=== PATIENT | male | born 1950 | race Caucasian/White ===

== ENCOUNTER 2017-02-12 13:16 | Inpatient (IN) | payer OTHER, MEDICARE ==
[2017-02-12] VITALS (9 sets, daily range): BP systolic 102–165; BP diastolic 50–77; PULSE 84–106; RESP 16–20; TEMP 97.2–98.1; O2SAT 95–100
[~2017-02-12] VITALS: Ht 182.9 cm; Wt 179.6 kg
--- NOTE | 2017-02-12 14:19 | PD ---
HPI Chief Complaint: Cardiac Complaint Time Seen by Provider: 13:46 Travel History International Travel<30 days: No Contact w/Intl Traveler<30days: No Traveled to known affect area: No History of Present Illness HPI 66-year-old male presents with shortness of breath and tiredness that is been progressive over the past couple of days. He went to Dr. kaiser for referral for a possible ablation and he was sent immediately here. Patient states he has history of hemorrhoids and has had very mild bleeding but denies any significant blood loss. He states that Dr. 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 He states he feels worse when he moves around or when he lies down. He denies other modifying factors. He denies other specific complaints. Duration is couple of days. PFSH Past Medical History Hx Anticoagulant Therapy: Yes (ELOQUIS) Cardiovascular Problems: Yes (AFIB/FLUTTER; HTN) Diabetes: Yes Respiratory: Yes (COPD) Social History Tobacco Use: No Allergies-Medications (Allergen,Severity, Reaction): Coded Allergies: No Known Allergies (Unverified , 02/12/17) Review of Systems Except as stated in HPI: all other systems reviewed are Neg Physical Exam Narrative GENERAL: Well-nourished, well-developed patient. pale SKIN: Warm and dry. HEAD: Normocephalic and atraumatic. EYES: No injection or drainage. ENT: No nasal drainage noted. NECK: Supple, trachea midline. CARDIOVASCULAR: irregular rate and rhythm RESPIRATORY: Breath sounds equal bilaterally at apices. No accessory muscle use. GASTROINTESTINAL: Abdomen soft, non-tender, nondistended. EXTREMITIES: pitting edema to bilateral lower extremities to knees. RECTAL EXAM: Performed with packer sausage and wiener and after permission. No large external hemorrhoid or fissure, stool is brown, non-bloody. NEUROLOGICAL: Awake and alert. moves all extremities and sensory grossly within normal limits. Normal speech. Data Data Last Documented VS Vital Signs Date Time Temp Pulse Resp B/P (MAP) Pulse Ox O2 Delivery O2 Flow Rate FiO2 02/12/17 14:14 93 Nasal Cannula 2.00 02/12/17 13:17 98.1 106 16 147/77 (100) Orders Orders Magnesium (Mg) (02/12/17 13:46) Phosphorus (Po4) (02/12/17 13:46) Complete Blood Count With Diff (02/12/17 13:46) Comprehensive Metabolic Panel (02/12/17 13:46) Ckmb (Isoenzyme) Profile (02/12/17 13:46) Troponin I (02/12/17 13:46) Urinalysis - C+S If Indicated (02/12/17 13:46) Act Partial Throm Time (Ptt) (02/12/17 13:46) Prothrombin Time / Inr (Pt) (02/12/17 13:46) B-Type Natriuretic Peptide (02/12/17 13:46) Chest, Single Ap (02/12/17 ) Electrocardiogram (02/12/17 ) Iv Access Insert/Monitor (02/12/17 13:46) Ecg Monitoring (02/12/17 13:46) Oximetry (02/12/17 13:46) Type And Screen (02/12/17 13:46) Red Blood Cells (Rbc) (02/12/17 14:33) Blood Product Administration (02/12/17 14:33) CKMB (02/12/17 13:58) CKMB% (02/12/17 13:58) Pantoprazole Inj (Protonix Inj) (02/12/17 15:15) ^ Medication Reconciliation (02/12/17 15:35) Admit Order (Ed Use Only) (02/12/17 15:40) Labs Laboratory Tests Test 02/12/17 13:58 02/12/17 14:40 White Blood Count 11.0 TH/MM3 Red Blood Count 2.74 MIL/MM3 Hemoglobin 6.3 GM/DL Hematocrit 21.2 % Mean Corpuscular Volume 77.4 FL Mean Corpuscular Hemoglobin 23.1 PG Mean Corpuscular Hemoglobin Concent 29.9 % Red Cell Distribution Width 17.9 % Platelet Count 201 TH/MM3 Mean Platelet Volume 8.4 FL Neutrophils (%) (Auto) 67.8 % Lymphocytes (%) (Auto) 15.7 % Monocytes (%) (Auto) 7.1 % Eosinophils (%) (Auto) 8.6 % Basophils (%) (Auto) 0.8 % Neutrophils # (Auto) 7.5 TH/MM3 Lymphocytes # (Auto) 1.7 TH/MM3 Monocytes # (Auto) 0.8 TH/MM3 Eosinophils # (Auto) 0.9 TH/MM3 Basophils # (Auto) 0.1 TH/MM3 CBC Comment DIFF FINAL Differential Comment Prothrombin Time 11.2 SEC Prothromb Time International Ratio 1.1 RATIO Activated Partial Thromboplast Time 30.5 SEC Blood Urea Nitrogen 23 MG/DL Creatinine 1.52 MG/DL Random Glucose 200 MG/DL Total Protein 7.3 GM/DL Albumin 3.4 GM/DL Calcium Level 8.6 MG/DL Phosphorus Level 3.6 MG/DL Magnesium Level 1.7 MG/DL Alkaline Phosphatase 63 U/L Aspartate Amino Transf (AST/SGOT) 17 U/L Alanine Aminotransferase (ALT/SGPT) 27 U/L Total Bilirubin 0.5 MG/DL Sodium Level 132 MEQ/L Potassium Level 4.0 MEQ/L Chloride Level 96 MEQ/L Carbon Dioxide Level 27.6 MEQ/L Anion Gap 8 MEQ/L Estimat Glomerular Filtration Rate 46 ML/MIN Total Creatine Kinase 255 U/L Creatine Kinase MB 1.8 NG/ML Troponin I LESS THAN 0.02 NG/ML B-Type Natriuretic Peptide 119 PG/ML Urine Color LIGHT-YELLOW Urine Turbidity CLEAR Urine pH 6.5 Urine Specific [place] 1.012 Urine Protein NEG mg/dL Urine Glucose (UA) NEG mg/dL Urine Ketones NEG mg/dL Urine Occult Blood NEG Urine Nitrite NEG Urine Bilirubin NEG Urine Urobilinogen 2.0 MG/DL Urine Leukocyte Esterase NEG Urine Squamous Epithelial Cells <1 /hpf Microscopic Urinalysis Comment CULT NOT INDICATED MDM Medical Decision Making Medical Screen Exam Complete: Yes Emergency Medical Condition: Yes Medical Record Reviewed: Yes (pmh confirmed) Interpretation(s) CBC & BMP Diagram 02/12/17 13:58 Total Protein 7.3, Albumin 3.4, Calcium Level 8.6, Phosphorus Level 3.6, Magnesium Level 1.7, Alkaline Phosphatase 63, Aspartate Amino Transf (AST/SGOT) 17, Alanine Aminotransferase (ALT/SGPT) 27, Total Bilirubin 0.5 Last 24 hours Impressions Chest X-Ray 02/12/17 0000 Signed Impressions: Service Date/Time: Friday, February 12, 2017 14:25 - CONCLUSION: No acute disease. Isael Blake MD Differential Diagnosis anemia, renal failure, chf, afib with rvr..... Narrative Course will check labs, cxr and monitor Lab shows critical anemia, 2 units of blood ordered for transfusion, patient is on Eliquis, guaiac is only faintly positive and no active rectal bleeding on examination, no indication for kcentra currently. Patient updated and agrees to transfusion and admission, given Protonix bolus Patient with only mild tachycardia, Cardizem will be held and patient will be given blood Critical Care Narrative Aggregate critical care time was 31 minutes. Time to perform other separately billable procedures was not included in the critical care time. My time did not include minutes spent treating any other patients simultaneously or on activities that did not directly contribute to the patient's treatment. The services I provided to this patient were to treat and/or prevent clinically significant deterioration that could result in: Hypotension, shock I provided critical care services requiring my management, as noted below: Chart data review, documentation time, medication orders and management, vital sign assessments/reviewing monitor data, ordering and reviewing lab tests, ordering and interpreting/reviewing x-rays and diagnostic studies, care of the patient and discussion of the patient with the admitting physicians. HemaPrompt Point of Care Internal Pos. & Neg. Controls: Passed Fecal Specimen Occult Blood: Positive (only faint) Physician Communication Physician Communication dr lindo agrees to admit Diagnosis Primary Impression: Anemia Qualified Codes: D64.9 - Anemia, unspecified Additional Impressions: Renal insufficiency Rectal bleed Atrial fibrillation with RVR Admitting Information Admitting Physician Requests: Admit Oksana Cunningham MD Feb 12, 2017 14:19
[2017-02-12 14:28] LABS: AUTOMATED NEUTROPHIL # 7.5 TH/MM3 (1.8-7.7); BASOPHIL # 0.1 TH/MM3 (0-0.2); BASOPHIL % 0.8 % (0.0-2.0); EOSINOPHIL # 0.9 TH/MM3 (0-0.4); EOSINOPHIL % 8.6 % (0.0-4.0); LYMPH % 15.7 % (9.0-44.0); LYMPHOCYTE # 1.7 TH/MM3 (1.0-4.8); MEAN CELL VOLUME 77.4 FL (80.0-100.0); MEAN CORPUSCULAR HEMOGLOBIN 23.1 PG (27.0-34.0); MONO % 7.1 % (0.0-8.0); NEUT % 67.8 % (16.0-70.0); PLATELET COUNT 201 TH/MM3 (150-450); RED BLOOD COUNT 2.74 MIL/MM3 (4.50-5.90); RED CELL DISTRIBUTION WIDTH 17.9 % (11.6-17.2)
[2017-02-12 14:31] LABS: HEMO FLAGS DIFF FINAL; MEAN CORPUSCULAR HGB CONC 29.9 % (32.0-36.0)
[2017-02-12 14:33] LABS: HEMATOCRIT 21.2 % (39.0-51.0)
[2017-02-12 14:39] LABS: APTT (PATIENT) 30.5 SEC (24.3-30.1); INTERNATIONAL NORMALIZED RATIO 1.1 RATIO; PROTHROMBIN TIME - PATIENT 11.2 SEC (9.8-11.6)
[2017-02-12 14:55] LABS: ALT (GPT) 27 U/L (12-78); ANION GAP 8 MEQ/L (5-15); AST (GOT) 17 U/L (15-37); BICARBONATE 27.6 MEQ/L (21.0-32.0); BLOOD UREA NITROGEN 23 MG/DL (7-18); CHLORIDE 96 MEQ/L (98-107); GLOMERULAR FILTRATION RATE 46 ML/MIN (>89); MAGNESIUM 1.7 MG/DL (1.5-2.5); SODIUM (NA) 132 MEQ/L (136-145)
[2017-02-12 14:58] LABS: ALKALINE PHOSPHATASE 63 U/L (45-117); CREATINE KINASE 255 U/L (39-308); TOTAL BILIRUBIN ADULT 0.5 MG/DL (0.2-1.0)
--- NOTE | 2017-02-12 15:10 | RADRPT ---
EXAM DATE/TIME: 02/12/2017 14:25 [facility] COMPARISON: No previous studies available for comparison. INDICATIONS : short of breath. MEDICAL HISTORY : A-fib SURGICAL HISTORY : None. ENCOUNTER: Initial ACUITY: 1 day PAIN SCORE: 0/10 LOCATION: Bilateral chest FINDINGS: A single view of the chest demonstrates the lungs to be symmetrically aerated without evidence of mas s, infiltrate or effusion. The cardiomediastinal contours are unremarkable. Osseous structures are intact. CONCLUSION: No acute disease. Isael Blake MD on February 12, 2017 at 15:08 Board Certified Radiologist. This report was verified electronically.
[2017-02-12 15:11] LABS: CKMB 1.8 NG/ML (0.5-3.6)
[2017-02-12] MEDS ORDERED: PANTOPRAZOLE SODIUM 40 MG VIAL IV PUSH ONE (15:15)
[2017-02-12 15:39] LABS: BLOOD, URINE NEG (NEG); COMMENT (UR) CULT NOT INDICATED; CULTURE IF INDICATED CULT NOT INDICATED; GLUCOSE,URINE NEG (NEG); KETONE, URINE NEG (NEG); NITRITE,URINE NEG (NEG); PH, URINE 6.5 (5.0-8.5); SQUAMOUS EPITHELIAL CELL URINE <1 /hpf (0-5); URINE COLOR LIGHT-YELLOW (YELLW/STRAW)
[2017-02-12] MEDS ORDERED: LACTULOSE SYRUP 20 GM/30 ML CUP PO PRN (15:45)
[2017-02-12] MEDS ORDERED: BISACODYL 10 MG SUPP RECTAL PRN (15:45)
[2017-02-12] MEDS ORDERED: SODIUM CHLORIDE 0.9% FLUSH 10 ML FLUSH IV FLUSH PRN (15:45)
[2017-02-12] MEDS ORDERED: TEMAZEPAM 15 MG CAP PO PRN (15:45)
[2017-02-12] MEDS ORDERED: SENNOSIDES 8.6 MG TAB PO PRN (15:45)
[2017-02-12] MEDS ORDERED: ONDANSETRON HCL 4 MG/2 ML VIAL IVP PRN (15:45)
[2017-02-12] MEDS ORDERED: MAGNESIUM HYDROXIDE SUSP 30 ML CUP PO PRN (15:45)
[2017-02-12] MEDS ORDERED: NALOXONE HCL 0.4 MG/ML AMP IV PUSH PRN (15:45)
[2017-02-12] MEDS: SODIUM CHLOR 0.9% 1000 ML INJ 1,000 ML IV SCH (15:58)
--- NOTE | 2017-02-12 16:40 | PD.CONS ---
HPI History of Present Illness This is a 66 year old male with hx hemorrhoids, AF on eliquis who presented to the ER after being sent to ER by Dr Whitt during consult for an ablation. He was found to be anemic with hgb 6.3 on admission. Denies jasbir rectal bleeding but did see scant blood on toilet paper the other day after BM. Denies black tarry stool, abd pain, n/v, hematuria. He thinks he may have been told he's anemic b/c he has been getting iron shots from "one of his doctors". 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 Denies chest pain, palpitations. Never colonoscopy or upper endoscopy. He takes eliquis, had this morning. Pts aids in providing hx. Pt limited historian. (Tena Valenzuela) PFSH Past Medical History A fib a flutter ?ESTUARDO HTN DM emphysema Past Surgical History vein stripping (Tena Valenzuela) Coded Allergies: No Known Allergies (Unverified , 02/12/17) Family History heart dz lung dz Social History no etoh quit smoking 1.5 years ago, smoked 45 years medical marijuana, occasionally (Tena Valenzuela) Review of Systems Constitutional: DENIES: Fever Eyes: DENIES: Blurred vision Ears, nose, mouth, throat: DENIES: Hearing loss Respiratory: DENIES: Hemoptysis Cardiovascular: DENIES: Chest pain, Palpitations Gastrointestinal: DENIES: Abdominal pain, Black stools, Bloody stools, Constipation, Diarrhea, Nausea, Vomiting, Hematemesis Genitourinary: DENIES: Hematuria Musculoskeletal: DENIES: Joint Swelling Integumentary: DENIES: Pruritus Neurologic: DENIES: Headache Psychiatric: DENIES: Confusion (Tena Valenzuela) GI Exam Vitals I&O Vital Signs Date Time Temp Pulse Resp B/P (MAP) Pulse Ox O2 Delivery O2 Flow Rate FiO2 02/12/17 15:59 98 20 102/69 (80) 100 Nasal Cannula 2.00 02/12/17 14:14 93 Nasal Cannula 2.00 02/12/17 13:17 98.1 106 16 147/77 (100) 95 Imaging Last Impressions Chest X-Ray 02/12/17 0000 Signed Impressions: Service Date/Time: WednesFebruary 12, 2017 14:25 - CONCLUSION: No acute disease. Isael Blake MD Laboratory Test 02/12/17 13:58 02/12/17 14:40 White Blood Count 11.0 TH/MM3 Red Blood Count 2.74 MIL/MM3 Hemoglobin 6.3 GM/DL Hematocrit 21.2 % Mean Corpuscular Volume 77.4 FL Mean Corpuscular Hemoglobin 23.1 PG Mean Corpuscular Hemoglobin Concent 29.9 % Red Cell Distribution Width 17.9 % Platelet Count 201 TH/MM3 Mean Platelet Volume 8.4 FL Neutrophils (%) (Auto) 67.8 % Lymphocytes (%) (Auto) 15.7 % Monocytes (%) (Auto) 7.1 % Eosinophils (%) (Auto) 8.6 % Basophils (%) (Auto) 0.8 % Neutrophils # (Auto) 7.5 TH/MM3 Lymphocytes # (Auto) 1.7 TH/MM3 Monocytes # (Auto) 0.8 TH/MM3 Eosinophils # (Auto) 0.9 TH/MM3 Basophils # (Auto) 0.1 TH/MM3 CBC Comment DIFF FINAL Differential Comment Prothrombin Time 11.2 SEC Prothromb Time International Ratio 1.1 RATIO Activated Partial Thromboplast Time 30.5 SEC Blood Urea Nitrogen 23 MG/DL Creatinine 1.52 MG/DL Random Glucose 200 MG/DL Total Protein 7.3 GM/DL Albumin 3.4 GM/DL Calcium Level 8.6 MG/DL Phosphorus Level 3.6 MG/DL Magnesium Level 1.7 MG/DL Alkaline Phosphatase 63 U/L Aspartate Amino Transf (AST/SGOT) 17 U/L Alanine Aminotransferase (ALT/SGPT) 27 U/L Total Bilirubin 0.5 MG/DL Sodium Level 132 MEQ/L Potassium Level 4.0 MEQ/L Chloride Level 96 MEQ/L Carbon Dioxide Level 27.6 MEQ/L Anion Gap 8 MEQ/L Estimat Glomerular Filtration Rate 46 ML/MIN Total Creatine Kinase 255 U/L Creatine Kinase MB 1.8 NG/ML Troponin I LESS THAN 0.02 NG/ML B-Type Natriuretic Peptide 119 PG/ML Urine Color LIGHT-YELLOW Urine Turbidity CLEAR Urine pH 6.5 Urine Specific [place] 1.012 Urine Protein NEG mg/dL Urine Glucose (UA) NEG mg/dL Urine Ketones NEG mg/dL Urine Occult Blood NEG Urine Nitrite NEG Urine Bilirubin NEG Urine Urobilinogen 2.0 MG/DL Urine Leukocyte Esterase NEG Urine Squamous Epithelial Cells <1 /hpf Microscopic Urinalysis Comment CULT NOT INDICATED Physical Examination HEENT: PERRL; normocephalic; atraumatic; no jaundice. CHEST: diminished CARDIAC: irr HR ABDOMEN: Soft, obese, nontender; bowel sounds are present in all four quadrants. EXTREMITIES: No clubbing, cyanosis,+ BLE edema > RLE SKIN: pale; no rash; no jaundice. REFUSE AND RECYCLING WORKER: No focal deficits; alert and oriented times three. (Tena Valenzuela) Assessment and Plan Plan ASSESSMENT - anemia - hgb 6.3 on admission. pt admits scant blood on toilet tissue the other day but no other blood in stool, no black tarry stool, no hx GIB. never had EGD or colonoscopy. seems to have hx anemia, sees press operator apprentice but cannot recall who, gets iron shots. stool "faintly" guiac positive. had eliquis today PLAN - EGD/colonoscopy with cardiac clearance - monitor HH - transfuse as needed - continue PPI - supportive care - further recs as case unfolds This pt seen by myself and Dr Luz and this note is written on his behalf (Tena Valenzuela) Physician Comments Seen and examined with LIDIA, no active bleeding reported. Needs transfusion. Egd /colonoscopy once cleared by cardiology. Significant risk for anesthesia due to patients large size. Discussed with pt. and at the bedside. Thankyou (Dwight Luz MD) Tena Valenzuela Feb 12, 2017 16:40 Dwight Luz MD Feb 12, 2017 17:23
[2017-02-12] MEDS: SODIUM CHLORIDE 0.9% FLUSH 10 ML FLUSH IV FLUSH SCH (20:15)
[2017-02-12] MEDS: DOCUSATE SODIUM 50 MG/SENNA 8.6 MG TAB PO SCH (21:00)
--- NOTE | 2017-02-12 21:57 | HHI.HP ---
[facility] Chas Ceja MD Admission Diagnosis anemia, afib with rvr Diagnoses: Chief Complaint: Generalized weakness Travel History International Travel<30 Days: No Contact w/Intl Traveler <30 Da: No Traveled to Known Affected Are: No History of Present Illness This is a very pleasant 66 year old male with hx hemorrhoids, AFib on eliquis, history of iron deficiency anemia, hypertension, diabetes, emphysema, morbidly obese, who presented to the ER after being sent to ER by Dr Whitt during consult for an ablation. He was found to be anemic with hgb 6.3 on admission. Denies jasbir rectal bleeding but did see scant blood on toilet paper the other day after BM. Denies black tarry stool, abd pain, n/v, hematuria. He thinks he may have been told he's anemic b/c he has been getting iron shots from "one of his doctors". 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 Denies chest pain, palpitations. Never colonoscopy or upper endoscopy. He takes eliquis, had this morning. Patient says he felt very weak and his short of breath however denies any chest pain, lightheadedness, no nausea or vomiting. Denies having palpitations. No hematuria. No other complaints at this time. Review of Systems Except as stated in HPI: all other systems reviewed are Neg Past Family Social History Past Medical History A fib a flutter ?ESTUARDO HTN DM emphysema Past Surgical History vein stripping Allergies: Coded Allergies: No Known Allergies (Unverified , 02/12/17) Family History Heart disease - father Mother COPD she was a smoker Social History Denies etohuse Quit smoking 1.5 years ago, smoked for 45 years 2 PPD Medical marijuana, occasionally Physical Exam Vital Signs Vital Signs Date Time Temp Pulse Resp B/P (MAP) Pulse Ox O2 Delivery O2 Flow Rate FiO2 02/12/17 18:35 Nasal Cannula 3.00 02/12/17 18:30 98.0 84 20 130/69 (89) 96 02/12/17 18:01 02/12/17 15:59 98 20 102/69 (80) 100 Nasal Cannula 2.00 02/12/17 14:14 93 Nasal Cannula 2.00 02/12/17 13:17 98.1 106 16 147/77 (100) 95 Physical Exam GENERAL: This is a well-nourished, well-developed patient, in no apparent distress. SKIN: No rashes, ecchymoses or lesions. Cool and dry. HEAD: Atraumatic. Normocephalic. No temporal or scalp tenderness. EYES: Pupils equal round and reactive. Extraocular motions intact. No scleral icterus. No injection or drainage. ENT: Nose without bleeding, purulent drainage or septal hematoma. Throat without erythema, tonsillar hypertrophy or exudate. Uvula midline. Airway patent. NECK: Trachea midline. No JVD or lymphadenopathy. Supple, nontender, no meningeal signs. CARDIOVASCULAR: Regular rate and rhythm without murmurs, gallops, or rubs. RESPIRATORY: Clear to auscultation. Breath sounds equal bilaterally. No wheezes , rales, or rhonchi. GASTROINTESTINAL: Abdomen soft, non-tender, nondistended. No hepato-splenomegaly , or palpable masses. No guarding. MUSCULOSKELETAL: Extremities without clubbing, cyanosis, or edema. No joint tenderness, effusion, or edema noted. No calf tenderness. Negative Homans sign bilaterally. NEUROLOGICAL: Awake and alert. Cranial nerves II through XII intact. Motor and sensory grossly within normal limits. Five out of 5 muscle strength in all muscle groups. Normal speech. Laboratory Laboratory Tests Test 02/12/17 13:58 02/12/17 14:40 White Blood Count 11.0 Red Blood Count 2.74 Hemoglobin 6.3 Hematocrit 21.2 Mean Corpuscular Volume 77.4 Mean Corpuscular Hemoglobin 23.1 Mean Corpuscular Hemoglobin Concent 29.9 Red Cell Distribution Width 17.9 Platelet Count 201 Mean Platelet Volume 8.4 Neutrophils (%) (Auto) 67.8 Lymphocytes (%) (Auto) 15.7 Monocytes (%) (Auto) 7.1 Eosinophils (%) (Auto) 8.6 Basophils (%) (Auto) 0.8 Neutrophils # (Auto) 7.5 Lymphocytes # (Auto) 1.7 Monocytes # (Auto) 0.8 Eosinophils # (Auto) 0.9 Basophils # (Auto) 0.1 CBC Comment DIFF FINAL Differential Comment Prothrombin Time 11.2 Prothromb Time International Ratio 1.1 Activated Partial Thromboplast Time 30.5 Blood Urea Nitrogen 23 Creatinine 1.52 Random Glucose 200 Total Protein 7.3 Albumin 3.4 Calcium Level 8.6 Phosphorus Level 3.6 Magnesium Level 1.7 Alkaline Phosphatase 63 Aspartate Amino Transf (AST/SGOT) 17 Alanine Aminotransferase (ALT/SGPT) 27 Total Bilirubin 0.5 Sodium Level 132 Potassium Level 4.0 Chloride Level 96 Carbon Dioxide Level 27.6 Anion Gap 8 Estimat Glomerular Filtration Rate 46 Total Creatine Kinase 255 Creatine Kinase MB 1.8 Troponin I LESS THAN 0.02 B-Type Natriuretic Peptide 119 Urine Color LIGHT-YELLOW Urine Turbidity CLEAR Urine pH 6.5 Urine Specific [place] 1.012 Urine Protein NEG Urine Glucose (UA) NEG Urine Ketones NEG Urine Occult Blood NEG Urine Nitrite NEG Urine Bilirubin NEG Urine Urobilinogen 2.0 Urine Leukocyte Esterase NEG Urine Squamous Epithelial Cells <1 Microscopic Urinalysis Comment CULT NOT INDICATED Result Diagram: 02/12/17 1358 02/12/17 1358 Imaging Last Impressions Chest X-Ray 02/12/17 0000 Signed Impressions: Service Date/Time: Sunday, February 12, 2017 14:25 - CONCLUSION: No acute disease. Isael Blake MD [place] VTE Risk Assessment Caprini VTE Risk Assessment: Mod/High Risk (score >= 2) VTE Pharm Contraindication: Active bleeding Caprini Risk Assessment Model Point Value = 1 Point Value = 2 Point Value = 3 Point Value = 5 Age 41-60 Minor surgery BMI > 25 kg/m2 Swollen legs Varicose veins or History of unexplained or recurrent spontaneous Oral contraceptives or hormone replacement Sepsis (< 1 month) Serious lung disease, including pneumonia (< 1 month) Abnormal pulmonary function Acute myocardial infarction Congestive heart failure (< 1 month) History of inflammatory bowel disease Medical patient at bed rest Age 61-74 Arthroscopic surgery Major open surgery (> 45 min) Laparoscopic surgery (> 45 min) Malignancy Confined to bed (> 72 hours) Immobilizing plaster cast Central venous access Age >= 75 History of VTE Family history of VTE Factor V Leiden Prothrombin [id number] Lupus anticoagulant Anticardiolipin antibodies Elevated serum homocysteine Heparin-induced thrombocytopenia Other congenital or acquired thrombophilia Stroke (< 1 month) Elective arthroplasty Hip, pelvis, or leg fracture Acute spinal cord injury (< 1 month) Prophylaxis Regimen Total Risk Factor Score Risk Level Prophylaxis Regimen 0-1 Low Early ambulation 2 Moderate Order ONE of the following: *Sequential Compression Device (SCD) *Heparin 5000 units SQ BID 3-4 Higher Order ONE of the following medications: *Heparin 5000 units SQ TID *Enoxaparin/Lovenox 40 mg SQ daily (WT < 150 kg, CrCl > 30 mL/min) *Enoxaparin/Lovenox 30 mg SQ daily (WT < 150 kg, CrCl > 10-29 mL/min) *Enoxaparin/Lovenox 30 mg SQ BID (WT < 150 kg, CrCl > 30 mL/min) AND/OR *Sequential Compression Device (SCD) 5 or more Highest Order ONE of the following medications: *Heparin 5000 units SQ TID (Preferred with Epidurals) *Enoxaparin/Lovenox 40 mg SQ daily (WT < 150 kg, CrCl > 30 mL/min) *Enoxaparin/Lovenox 30 mg SQ daily (WT < 150 kg, CrCl > 10-29 mL/min) *Enoxaparin/Lovenox 30 mg SQ BID (WT < 150 kg, CrCl > 30 mL/min) AND *Sequential Compression Device (SCD) Assessment and Plan Problem List: (1) Anemia ICD Code: D64.9 - Anemia, unspecified Status: Acute (2) Renal insufficiency ICD Code: N28.9 - Disorder of kidney and ureter, unspecified Status: Acute (3) Atrial fibrillation with RVR ICD Code: I48.91 - Unspecified atrial fibrillation Status: Acute (4) Rectal bleed ICD Code: K62.5 - Hemorrhage of anus and rectum Status: Acute Assessment and Plan This is a very pleasant 66 year old male with hx hemorrhoids, AFib on eliquis, history of iron deficiency anemia, hypertension, diabetes, emphysema, morbidly obese, who presented to the ER after being sent to ER by Dr Whitt during consult for an ablation. He was found to be anemic with hgb 6.3 on admission. Symptomatic Microcytic Anemia - hgb 6.3 on admission. pt admits scant blood on toilet tissue the other day but no other blood in stool, no black tarry stool, no hx GIB. he never had EGD or colonoscopy. Says has a hx anemia, sees trash hauler but cannot recall who, gets iron shots last shot was a long time ago . Stool "faintly" guiac positive. GI was consulted, plan for EGD/ colonoscopy once cleared by cardiology Had eliquis today, will hold eliquis Monitor H/H and transfuse as need Plan to transfuse 2 U PRBC. Check Iron study , consider hem/onc consult for further eval Continue PPI Chronic medical problems appear stable at this time, resume home medications as appropriate, hold Eliquis. Consult Dr. Whitt his cardiology [facility] sliding [facility] Chronic medical problems includes : AFib on eliquis, hypertension, diabetes, emphysema, morbidly obese. DVT prophylaxis SCD/teds. Chemotherapy prophylaxis contraindicated in this patient with low hemoglobin, possible GI bleed. Physician Certification 2 Midnight Certification Type: Admission for Inpatient Services Order for Inpatient Services The services are ordered in accordance with Medicare regulations or non- Medicare payer requirements, as applicable. In the case of services not specified as inpatient-only, they are appropriately provided as inpatient services in accordance with the 2-midnight benchmark. Estimated LOS (days): 3 days is the estimated time the patient will need to remain in the hospital, assuming treatment plan goals are met and no additional complications. Post-Hospital Plan: Home Problem Qualifiers (1) Anemia: Qualified Codes: D64.9 - Anemia, unspecified Jane Das MD Feb 12, 2017 21:57
[2017-02-13] VITALS (11 sets, daily range): BP systolic 105–159; BP diastolic 56–87; PULSE 100–138; RESP 16–20; TEMP 97.3–98.6; O2SAT 92–98
[2017-02-13] MEDS: SODIUM CHLOR 0.9% 1000 ML INJ 1,000 ML IV SCH (01:59)
[2017-02-13] MEDS: DOCUSATE SODIUM 50 MG/SENNA 8.6 MG TAB PO SCH ×2 (08:48→21:00)
[2017-02-13] MEDS: SODIUM CHLORIDE 0.9% FLUSH 10 ML FLUSH IV FLUSH SCH ×2 (08:48→21:00)
[2017-02-13 09:24] LABS: AUTOMATED NEUTROPHIL # 8.1 TH/MM3 (1.8-7.7); BASOPHIL # 0.2 TH/MM3 (0-0.2); BASOPHIL % 1.3 % (0.0-2.0); EOSINOPHIL # 1.1 TH/MM3 (0-0.4); HEMATOCRIT 25.4 % (39.0-51.0); HEMO FLAGS DIFF FINAL; LYMPH % 16.2 % (9.0-44.0); MEAN CORPUSCULAR HEMOGLOBIN 24.1 PG (27.0-34.0); MEAN CORPUSCULAR HGB CONC 30.9 % (32.0-36.0); MONO % 7.7 % (0.0-8.0); NEUT % 65.8 % (16.0-70.0); PLATELET COUNT 205 TH/MM3 (150-450); RED BLOOD COUNT 3.26 MIL/MM3 (4.50-5.90); RED CELL DISTRIBUTION WIDTH 17.5 % (11.6-17.2); WHITE BLOOD COUNT 12.4 TH/MM3 (4.0-11.0)
[2017-02-13 09:39] LABS: BICARBONATE 27.1 MEQ/L (21.0-32.0); POTASSIUM 4.1 MEQ/L (3.5-5.1)
[2017-02-13] MEDS ORDERED: PNEUMOCOCCAL POLYVALENT INJ 25 MCG/0.5 ML SYR IM ONE (10:00)
--- NOTE | 2017-02-13 14:47 | HHI.GIFU ---
Subjective Remarks Pt sitting on side of bed, in no apparent distress at this time. at bedside. He is currently on clear liquids and reports he is hungry. Complaining of acid reflux, informed patient that he has medication ordered as needed for indigestion. Pt denies N/V/abdominal pain. Has not had a BM today. Denies any obvious bleeding in stool or dark, tarry stool. ([facility]) Objective Vitals I&O Vital Signs Date Time Temp Pulse Resp B/P (MAP) Pulse Ox O2 Delivery O2 Flow Rate FiO2 02/13/17 12:00 97.9 108 20 106/56 (73) 94 02/13/17 08:00 97.3 102 20 145/69 (94) 95 02/13/17 08:00 117 02/13/17 07:30 Nasal Cannula 3.00 02/13/17 05:30 98.6 104 20 159/74 (102) 94 02/13/17 04:00 110 02/13/17 02:00 98.1 102 16 132/76 98 02/13/17 01:45 98.0 103 16 137/87 98 02/13/17 00:00 103 02/12/17 23:50 97.7 96 20 165/71 (102) 96 02/12/17 23:40 97.6 96 16 152/74 98 02/12/17 23:10 97.2 103 16 147/50 95 02/12/17 22:48 97.9 93 18 145/70 97 02/12/17 21:10 98.1 98 20 122/77 (92) 96 02/12/17 20:15 Nasal Cannula 3.00 02/12/17 20:00 105 02/12/17 18:35 Nasal Cannula 3.00 02/12/17 18:30 98.0 84 20 130/69 (89) 96 02/12/17 18:01 02/12/17 15:59 98 20 102/69 (80) 100 Nasal Cannula 2.00 I/O 02/12/17 02/12/17 02/12/17 02/13/17 02/13/17 02/13/17 07:00 15:00 23:00 07:00 15:00 23:00 Intake Total 300 ml 2550 ml Output Total 900 ml Balance 300 ml 1650 ml Intake Oral 1250 ml Packed Cells 800 ml Blood Product IV Normal Saline Flush 300 ml 500 ml Output Urine Total 900 ml # Voids 0 # Bowel Movements 0 2 Laboratory Laboratory Tests Test 02/13/17 08:19 White Blood Count 12.4 Red Blood Count 3.26 Hemoglobin 7.9 Hematocrit 25.4 Mean Corpuscular Volume 78.0 Mean Corpuscular Hemoglobin 24.1 Mean Corpuscular Hemoglobin Concent 30.9 Red Cell Distribution Width 17.5 Platelet Count 205 Mean Platelet Volume 8.5 Neutrophils (%) (Auto) 65.8 Lymphocytes (%) (Auto) 16.2 Monocytes (%) (Auto) 7.7 Eosinophils (%) (Auto) 9.0 Basophils (%) (Auto) 1.3 Neutrophils # (Auto) 8.1 Lymphocytes # (Auto) 2.0 Monocytes # (Auto) 0.9 Eosinophils # (Auto) 1.1 Basophils # (Auto) 0.2 CBC Comment DIFF FINAL Differential Comment Blood Urea Nitrogen 22 Creatinine 1.45 Random Glucose 171 Calcium Level 8.5 Sodium Level 132 Potassium Level 4.1 Chloride Level 97 Carbon Dioxide Level 27.1 Anion Gap 8 Estimat Glomerular Filtration Rate 49 Imaging Last Impressions Chest X-Ray 02/12/17 0000 Signed Impressions: Service Date/Time: Sunday, February 12, 2017 14:25 - CONCLUSION: No acute disease. Isael Blake MD Physical Exam HEENT: Normocephalic; atraumatic CHEST: Diminished CARDIAC: Irregular ABDOMEN: Soft, obese, nontender; bowel sounds active x 4.. SKIN: Normal; no rash; no jaundice. CONCERT PROMOTER: No focal deficits; alert and oriented times three. ([facility]) Assessment and Plan Plan ASSESSMENT - Anemia - Microcytic- hgb 6.3 on admission. Currently 7.9/25.4 S/P 2 U PRBC- Reports receiving iron injections in the past. Was previously follow [facility] in [place] but states it was for decreased WBC. History of blood transfusion when he was 7 years old, denies transfusion since then. No obvious bleeding. Was on Eliquis for a-fib, last dose was Friday morning. Reports starting this medication approx a month and a half ago- for a-fib. Denies ever having EGD/colonoscopy. We would recommend EGD/colonoscopy- awaiting cardiac clearance. PLAN - EGD/colonoscopy with cardiac clearance - Monitor HH - Transfuse as needed - Continue PPI - Supportive care - Further recs as case unfolds This patient has been seen and examined by myself and Dr. Luz and this note is written on his behalf ([facility]) Physician Comments Seen and examined with [employer], no active bleeding. Significant risk for anesthesai , would need General anesthesia for gi procedures. Awaiting cardiac clearance to proceed. Discussed with pt. and . (Dwight Luz MD) [facility] Feb 13, 2017 14:47 Dwight Luz MD Feb 13, 2017 15:58
[2017-02-13] MEDS: ALUMINUM/MAGNESIUM/SIMETH 30 ML CUP PO PRN (15:07)
--- NOTE | 2017-02-13 15:55 | EKG ---
Date Performed: 02/12/2017 Time Performed: 14:24:14 PTAGE: 66 years EKG: ATRIAL FIBRILLATION WITH RAPID VENTRICULAR RESPONSE MODERATE INTRAVENTRICULAR CONDUCTION DE LAY MINIMAL ST DEPRESSION ABNORMAL RHYTHM ECG INTERPRETATION BASED ON A DEFAULT AGE OF 39 YEARS NO PREVIOUS TRACING DOCTOR: Anthony Pollack Interpretating Date/Time 02/13/2017 15:54:40
--- NOTE | 2017-02-13 17:20 | HHI.PR ---
Subjective Remarks Deferred entry patient seen at 12:45 am Patient states feels very tired and fatigued. As per who is at bedside has difficulty sleeping. Denies cp/sob. Denies palpitations. Objective Vitals Vital Signs Date Time Temp Pulse Resp B/P (MAP) Pulse Ox O2 Delivery O2 Flow Rate FiO2 02/13/17 12:00 97.9 108 20 106/56 (73) 94 02/13/17 08:00 97.3 102 20 145/69 (94) 95 02/13/17 08:00 117 02/13/17 07:30 Nasal Cannula 3.00 02/13/17 05:30 98.6 104 20 159/74 (102) 94 02/13/17 04:00 110 02/13/17 02:00 98.1 102 16 132/76 98 02/13/17 01:45 98.0 103 16 137/87 98 02/13/17 00:00 103 02/12/17 23:50 97.7 96 20 165/71 (102) 96 02/12/17 23:40 97.6 96 16 152/74 98 02/12/17 23:10 97.2 103 16 147/50 95 02/12/17 22:48 97.9 93 18 145/70 97 02/12/17 21:10 98.1 98 20 122/77 (92) 96 02/12/17 20:15 Nasal Cannula 3.00 02/12/17 20:00 105 02/12/17 18:35 Nasal Cannula 3.00 02/12/17 18:30 98.0 84 20 130/69 (89) 96 02/12/17 18:01 I/O 02/12/17 02/12/17 02/12/17 02/13/17 02/13/17 02/13/17 07:00 15:00 23:00 07:00 15:00 23:00 Intake Total 300 ml 2550 ml Output Total 900 ml Balance 300 ml 1650 ml Intake Oral 1250 ml Packed Cells 800 ml Blood Product IV Normal Saline Flush 300 ml 500 ml Output Urine Total 900 ml # Voids 0 # Bowel Movements 0 2 Result Diagram: 02/13/17 0819 02/13/17 0819 Imaging Last Impressions Chest X-Ray 02/12/17 0000 Signed Impressions: Service Date/Time: Sunday, February 12, 2017 14:25 - CONCLUSION: No acute disease. Isael Blake MD Objective Remarks GENERAL: This is a well-nourished, well-developed patient, in no apparent distress. SKIN: No rashes, ecchymoses or lesions. Cool and dry. Pale skin. HEAD: Atraumatic. Normocephalic. No temporal or scalp tenderness. EYES: Pupils equal round and reactive. Extraocular motions intact. No scleral icterus. No injection or drainage. ENT: Nose without bleeding, purulent drainage or septal hematoma. Throat without erythema, tonsillar hypertrophy or exudate. Uvula midline. Airway patent. NECK: Trachea midline. No JVD or lymphadenopathy. Supple, nontender, no meningeal signs. CARDIOVASCULAR: Regular rate and rhythm without murmurs, gallops, or rubs. RESPIRATORY: Clear to auscultation. Breath sounds equal bilaterally. No wheezes , rales, or rhonchi. GASTROINTESTINAL: Abdomen soft, non-tender, nondistended. No hepato-splenomegaly , or palpable masses. No guarding. MUSCULOSKELETAL: Extremities without clubbing, cyanosis, +1 edema in lower extremities. No joint tenderness, effusion, or edema noted. No calf tenderness. Negative Homans sign bilaterally. NEUROLOGICAL: Awake and alert. Cranial nerves II through XII intact. Motor and sensory grossly within normal limits. Five out of 5 muscle strength in all muscle groups. Normal Medications and IVs Current Medications Medications (Trade) Dose Ordered Sig/Vania Route Start Time Stop Time Status Last Admin Sodium Chloride 1,000 ml @ 100 mls/hr Q10H IV 02/12/17 16:00 02/13/17 01:59 (NS Flush) 2 ml UNSCH PRN IV FLUSH 02/12/17 15:45 (NS Flush) 2 ml BID IV FLUSH 02/12/17 21:00 02/13/17 08:48 (Zofran Inj) 4 mg Q6H PRN IVP 02/12/17 15:45 (Restoril) 15 mg HS PRN PO 02/12/17 15:45 02/12/17 23:22 (Narcan Inj) 0.4 mg UNSCH PRN IV PUSH 02/12/17 15:45 (Laquita-Colace) 1 tab BID PO 02/12/17 21:00 (Milk Of Magnesia Liq) 30 ml Q12H PRN PO 02/12/17 15:45 (Senokot) 17.2 mg Q12H PRN PO 02/12/17 15:45 (Dulcolax Supp) 10 mg DAILY PRN RECTAL 02/12/17 15:45 (Lactulose Liq) 30 ml DAILY PRN PO 02/12/17 15:45 (Protonix Inj) 40 mg Q12HR IV PUSH 02/13/17 13:00 (Mag-Al Plus Susp Liq) 30 ml PCHS PRN PO 02/13/17 12:00 02/13/17 15:07 A/P Problem List: (1) Anemia ICD Code: D64.9 - Anemia, unspecified Status: Acute Plan: his is a very pleasant 66 year old male with hx hemorrhoids, AFib on eliquis, history of iron deficiency anemia, hypertension, diabetes, emphysema, morbidly obese, who presented to the ER after being sent to ER by Dr Whitt during consult for an ablation. He was found to be anemic with hgb 6.3 on admission. The patient was then admitted to the medical unit, monitor on telemetry. Patient presented with severe microcytic anemia and a hemoglobin of 6.3, 2 units of packed blood cells were ordered in the ED for transfusion. The patient is being transfused. Continue to monitor CBC and transfuse as needed for hemoglobin less than 7 or symptomatic anemia. There is no evidence of active bleeding. Will check stool guaiac. GI consulted, for possible EGD/colonoscopy after cardiology clearance. (2) Atrial fibrillation with RVR ICD Code: I48.91 - Unspecified atrial fibrillation Status: Acute Plan: Rate controlled. The patient has been taking care by Dr. Whitt as an outpatient. The patient was referred to the hospital for ablation. Continue to hold Eliquis secondary to severe anemia. (3) Rectal bleed ICD Code: K62.5 - Hemorrhage of anus and rectum Status: Acute Plan: Likely due to hemorrhoids. No active bright red blood per rectum. The patient states that he has occasional episodes of bright red blood per rectum. There is no active bleeding noted. (4) MARY (acute kidney injury) ICD Code: N17.9 - Acute kidney failure, unspecified Plan: Patient presented with an elevated creatinine of 1.52. No previous labs available for comparison. Creatinine trending down to 1.45. Continue to monitor BUN/creatinine. She was started in IV fluids, however I will discontinued given that the patient will get 2 units of packed blood cells to avoid fluid overload. (5) HTN (hypertension) ICD Code: I10 - Essential (primary) hypertension Plan: Blood pressure seems to be acceptable. Will resume home medications once these are updated in the medication conciliation. (6) Diabetes ICD Code: E11.9 - Type 2 diabetes mellitus without complications Status: Chronic Plan: Medications not entered on med rec. will place on SSI with insulin Novolog and monitor Accu-Cheks. Problem Qualifiers (1) Anemia: Qualified Codes: D64.9 - Anemia, unspecified (2) HTN (hypertension): Qualified Codes: I10 - Essential (primary) hypertension (3) Diabetes: Qualified Codes: E11.9 - Type 2 diabetes mellitus without complications Ponce Schmidt MD Feb 13, 2017 17:20
[2017-02-13] MEDS ORDERED: DEXTROSE 50% IN WATER 50 ML VIAL(D50) IV PUSH PRN (17:30)
[2017-02-13] MEDS ORDERED: GLUCAGON 1 MG/ML VIAL OTHER PRN (17:30)
[2017-02-13] MEDS: DILTIAZEM HCL 60 MG TAB PO SCH (19:30)
[2017-02-13] MEDS: INSULIN ASPART SUPPLEMENTAL SCALE SQ SCH (21:00)
[2017-02-13] MEDS: PANTOPRAZOLE SODIUM 40 MG VIAL IV PUSH SCH (21:00)
[2017-02-13] MEDS: HEPARIN SODIUM - SQ 10,000 UNITS/ML VIAL SQ SCH (21:47)
[2017-02-13] MEDS: clonazePAM 1 MG TAB PO PRN (21:48)
--- NOTE | 2017-02-13 22:14 | MB ---
cc: SERGIO CAMACHO M.D. DATE OF CONSULTATION 02/13/17 REASON FOR CONSULTATION Atrial fibrillation with biventricular response. HISTORY OF PRESENT ILLNESS Mr. Macdonald is a 66-year-old day gentleman, morbid obesity, high blood pressure, hyperlipidemia, diabetes mellitus, followed by Dr. Mcgee who was seen at my office due to shortness of breath, atrial fibrillation with biventricular response. The patient was sent to the emergency room. Heart rate was around 140-160 beats per minute. He was found to have severe anemia, hemoglobin 6.3. During hospitalization, packed red blood cells was given. Heart rate decreased to around 100-110. I was consulted for further evaluation and management. The chart was reviewed. The patient was evaluated. I did have a very, very long conversation with the patient and the , myself and Dr. Echeverria. Spent over 45 minutes responding to all their questions and tried to make them less anxious. ALLERGIES None. SOCIAL HISTORY The patient quit smoking and drinking. FAMILY HISTORY Noncontributory to his current medical condition. MEDICATIONS Currently 1. Klonopin. 2. Protonix. Most of the medication was . The patient does not know what medication he was taken. I will have the office fax the list tomorrow. REVIEW OF SYSTEMS Referred feeling better. No chest pain or chest discomfort. PHYSICAL EXAMINATION GENERAL: Alert, fully oriented. VITAL SIGNS: Blood pressure 105/66, pulse 101-110, respiratory rate 18. LUNGS: Ventilated. CARDIOVASCULAR: S1, S2 irregular tachycardic at the time. ABDOMEN: Severely obese. No mass. EXTREMITIES: Apparently some venous insufficiency. I am not sure this is edema. CARDIOLOGY STUDIES Electrocardiogram indicated atrial fibrillation, diffuse ST changes. LABORATORY DATA Hemoglobin on hospitalization was 6.3, currently is 7.9, potassium 4.1, creatinine is 1.45. BNP is 119, troponin less than 0.02. AST is 27, AST is 17, INR 1.2. ASSESSMENT AND RECOMMENDATIONS Mr. Macdonald is currently feeling far better. Yesterday at my office he could barely take a couple of steps without shortness of breath. He did receive two units of packed red blood cells. Hemoglobin only increased 1.4. Further investigation of the bleeding will be necessary. His heart rate is still high. Medication is not known why the patient was taking it. His heart rate needs to be controlled. I am going to give a bolus of Digoxin 0.5 mg for now. I am going to initiate Cardizem at 60 mg p.o. q. 6 hours. The patient will need further GI workup. Heart rate will be controlled. If cleared by GI, will be anticoagulated and ablation will be performed 3-4 weeks after anticoagulation initiated. Case extensively discussed with the patient in detail. As mentioned before, they are very anxious. I tried to reassure them this is the best management at this point. The patient is worried about endoscopy and colonoscopy. I will monitor him during hospitalization. MD MIC Loja/ /7:26 PM /9:57 PM
[2017-02-14] VITALS (15 sets, daily range): BP systolic 118–165; BP diastolic 59–77; PULSE 77–139; RESP 18–22; TEMP 97.2–98.7; O2SAT 90–97
[2017-02-14] MEDS: DILTIAZEM HCL 60 MG TAB PO SCH ×5 (00:55→23:06)
[2017-02-14] MEDS ORDERED: ACETAMINOPHEN 325 MG TAB PO ONE (01:30)
[2017-02-14] MEDS: RESP: ALBUTEROL 2.5 MG/IPRATROPIUM 0.5 MG NEB (SCH) NEB ×4 (02:16→18:49)
[2017-02-14] MEDS: HEPARIN SODIUM - SQ 10,000 UNITS/ML VIAL SQ SCH ×2 (05:13→14:21)
[2017-02-14] MEDS ORDERED: NOVOLOGP2 SQ (06:04)
[2017-02-14] MEDS ORDERED: LANTUS2P SQ (06:05)
[2017-02-14] MEDS ORDERED: CYMB60CA PO (06:07)
[2017-02-14] MEDS ORDERED: DILT240C PO (06:09)
[2017-02-14] MEDS ORDERED: DILT120T PO (06:11)
[2017-02-14] MEDS ORDERED: FURO1TAB60 PO (06:12)
[2017-02-14] MEDS ORDERED: APIX5TAB PO (06:13)
[2017-02-14] MEDS ORDERED: LOSA100T PO (06:13)
[2017-02-14] MEDS ORDERED: HYDR25TA5 PO (06:14)
[2017-02-14] MEDS ORDERED: CLON1TAB PO (06:17)
[2017-02-14] MEDS ORDERED: METF1000 PO (06:19)
[2017-02-14 08:28] LABS: BASOPHIL # 0.1 TH/MM3 (0-0.2); BASOPHIL % 1.1 % (0.0-2.0); HEMO FLAGS DIFF FINAL; LYMPHOCYTE # 2.4 TH/MM3 (1.0-4.8); MEAN CELL VOLUME 78.3 FL (80.0-100.0); MEAN CORPUSCULAR HGB CONC 30.7 % (32.0-36.0); MONO % 7.7 % (0.0-8.0); NEUT % 61.2 % (16.0-70.0); PLATELET COUNT 217 TH/MM3 (150-450); RED BLOOD COUNT 3.45 MIL/MM3 (4.50-5.90); RED CELL DISTRIBUTION WIDTH 17.6 % (11.6-17.2); WHITE BLOOD COUNT 11.5 TH/MM3 (4.0-11.0)
[2017-02-14] MEDS: SODIUM CHLORIDE 0.9% FLUSH 10 ML FLUSH IV FLUSH SCH ×2 (08:51→20:24)
[2017-02-14] MEDS: DOCUSATE SODIUM 50 MG/SENNA 8.6 MG TAB PO SCH ×2 (08:51→20:24)
[2017-02-14] MEDS: PANTOPRAZOLE SODIUM 40 MG VIAL IV PUSH SCH ×2 (08:51→20:24)
[2017-02-14] MEDS: INSULIN ASPART SUPPLEMENTAL SCALE SQ SCH ×4 (08:52→20:26)
[2017-02-14 08:54] LABS: ANION GAP 5 MEQ/L (5-15); AST (GOT) 30 U/L (15-37); BICARBONATE 29.8 MEQ/L (21.0-32.0); BLOOD UREA NITROGEN 17 MG/DL (7-18); CHLORIDE 96 MEQ/L (98-107); GLOMERULAR FILTRATION RATE 49 ML/MIN (>89); MAGNESIUM 1.9 MG/DL (1.5-2.5); POTASSIUM 3.7 MEQ/L (3.5-5.1); SODIUM (NA) 131 MEQ/L (136-145)
[2017-02-14 08:56] LABS: ALT (GPT) 29 U/L (12-78)
[2017-02-14 08:57] LABS: ALKALINE PHOSPHATASE 68 U/L (45-117); TOTAL BILIRUBIN ADULT 0.8 MG/DL (0.2-1.0)
[2017-02-14] MEDS: ACETAMINOPHEN 325 MG TAB PO PRN ×2 (12:46→23:06)
--- NOTE | 2017-02-14 12:48 | HHI.PR ---
Subjective Remarks The patient states breathing is much improved. Denies cp/sob. Denies melena or hematochezia. Objective Vitals Vital Signs Date Time Temp Pulse Resp B/P (MAP) Pulse Ox O2 Delivery O2 Flow Rate FiO2 02/14/17 08:05 98.1 85 19 137/60 (85) 90 02/14/17 07:56 97 Nasal Cannula 3.00 02/14/17 04:50 97.2 92 20 155/70 (98) 97 02/14/17 04:00 107 02/14/17 02:19 95 Nasal Cannula 2.00 02/14/17 00:00 139 02/13/17 23:42 97.6 112 20 157/87 (110) 92 02/13/17 20:30 Nasal Cannula 3.00 02/13/17 20:15 98.2 118 20 145/81 (102) 94 02/13/17 20:00 111 02/13/17 16:00 97.7 112 20 105/66 (79) 96 02/13/17 16:00 100 I/O 02/13/17 02/13/17 02/13/17 02/14/17 02/14/17 02/14/17 07:00 15:00 23:00 07:00 15:00 23:00 Intake Total 2550 ml 480 ml 1080 ml Output Total 900 ml 625 ml 2100 ml 400 ml Balance 1650 ml -145 ml -1020 ml -400 ml Intake Oral 1250 ml 480 ml 1080 ml Packed Cells 800 ml Blood Product IV Normal Saline Flush 500 ml Output Urine Total 900 ml 625 ml 2100 ml 400 ml # Bowel Movements 2 0 0 Result Diagram: 02/14/17 0753 02/14/17 0753 Imaging Last Impressions Chest X-Ray 02/12/17 0000 Signed Impressions: Service Date/Time: Sunday, February 12, 2017 14:25 - CONCLUSION: No acute disease. Isael Blake MD Objective Remarks GENERAL: This is a well-nourished, well-developed patient, in no apparent distress. Sitting at the edge of the bed. SKIN: No rashes, ecchymoses or lesions. Cool and dry. Pale skin. HEAD: Atraumatic. Normocephalic. No temporal or scalp tenderness. EYES: Pupils equal round and reactive. Extraocular motions intact. No scleral icterus. No injection or drainage. ENT: Nose without bleeding, purulent drainage or septal hematoma. Throat without erythema, tonsillar hypertrophy or exudate. Uvula midline. Airway patent. NECK: Trachea midline. No JVD or lymphadenopathy. Supple, nontender, no meningeal signs. CARDIOVASCULAR: Regular rate and rhythm without murmurs, gallops, or rubs. RESPIRATORY: Clear to auscultation. Breath sounds equal bilaterally. No wheezes , rales, or rhonchi. GASTROINTESTINAL: Abdomen soft, non-tender, nondistended. No hepato-splenomegaly , or palpable masses. No guarding. MUSCULOSKELETAL: Extremities without clubbing, cyanosis, +1 edema in lower extremities. No joint tenderness, effusion, or edema noted. No calf tenderness. Negative Homans sign bilaterally. NEUROLOGICAL: Awake and alert. Cranial nerves II through XII intact. Motor and sensory grossly within normal limits. Five out of 5 muscle strength in all muscle groups. Normal Medications and IVs Current Medications Medications (Trade) Dose Ordered Sig/Vania Route Start Time Stop Time Status Last Admin (NS Flush) 2 ml UNSCH PRN IV FLUSH 02/12/17 15:45 (NS Flush) 2 ml BID IV FLUSH 02/12/17 21:00 02/14/17 08:51 (Zofran Inj) 4 mg Q6H PRN IVP 02/12/17 15:45 (Restoril) 15 mg HS PRN PO 02/12/17 15:45 02/12/17 23:22 (Narcan Inj) 0.4 mg UNSCH PRN IV PUSH 02/12/17 15:45 (Laquita-Colace) 1 tab BID PO 02/12/17 21:00 (Milk Of Magnesia Liq) 30 ml Q12H PRN PO 02/12/17 15:45 (Senokot) 17.2 mg Q12H PRN PO 02/12/17 15:45 (Dulcolax Supp) 10 mg DAILY PRN RECTAL 02/12/17 15:45 (Lactulose Liq) 30 ml DAILY PRN PO 02/12/17 15:45 (Protonix Inj) 40 mg Q12HR IV PUSH 02/13/17 13:00 02/14/17 08:51 (Mag-Al Plus Susp Liq) 30 ml PCHS PRN PO 02/13/17 12:00 12/7/17 15:07 (D50w (Vial) Inj) 50 ml UNSCH PRN IV PUSH 02/13/17 17:30 (Glucagon Inj) 1 mg UNSCH PRN OTHER 02/13/17 17:30 (NovoLOG SUPPLEMENTAL SCALE) 1 ACHS SLIDING SCALE SQ 02/13/17 21:00 02/14/17 08:52 (KlonoPIN) 1 mg HS PRN PO 02/13/17 19:30 02/13/17 21:48 (Duoneb Neb) 1 ampule Q6HR WHILE AWAKE NEB NEB 02/13/17 20:00 02/14/17 07:55 (Cardizem) 60 mg Q6HR PO 02/13/17 19:30 02/14/17 05:13 (Heparin Inj) 5,000 units Q8HR SQ 02/13/17 22:00 02/14/17 05:13 (Tylenol) 650 mg Q4H PRN PO 02/14/17 11:45 Urinary Catheter: No Vascular Central Line Catheter: No A/P Problem List: (1) Anemia ICD Code: D64.9 - Anemia, unspecified Status: Acute Plan: his is a very pleasant 66 year old male with hx hemorrhoids, AFib on eliquis, history of iron deficiency anemia, hypertension, diabetes, emphysema, morbidly obese, who presented to the ER after being sent to ER by Dr Whitt during consult for an ablation. He was found to be anemic with hgb 6.3 on admission. The patient was then admitted to the medical unit, monitor on telemetry. Patient presented with severe microcytic anemia and a hemoglobin of 6.3, 2 units of packed blood cells were ordered in the ED for transfusion. The patient is being transfused. There is no evidence of active bleeding. Will check stool guaiac. GI consulted, for possible EGD/colonoscopy after cardiology clearance. 02/14 hemoglobin is stable at 8.3. There is no evidence of active bleeding. Allergy has cleared the patient for GI procedures. And Nicole to monitor CBC and transfuse as needed for hemoglobin less than 7 or symptomatic anemia. (2) Atrial fibrillation with RVR ICD Code: I48.91 - Unspecified atrial fibrillation Status: Acute Plan: The patient has been taking care by Dr. Whitt as an outpatient. The patient was referred to the hospital for ablation. Continue to hold Eliquis secondary to severe anemia. 02/14 Continue heparin SQ. Stool for Hemoccult blood has been ordered. If this is negative then I will start the patient on heparin drip awaiting for his procedure. Heart rate is rate controlled. Continue Cardizem 60 mg by mouth every 6 hours and continue to follow-up cardiology recommendations. (3) Rectal bleed ICD Code: K62.5 - Hemorrhage of anus and rectum Status: Acute Plan: Likely due to hemorrhoids. No active bright red blood per rectum. The patient states that he has occasional episodes of bright red blood per rectum. There is no active bleeding noted. (4) MARY (acute kidney injury) ICD Code: N17.9 - Acute kidney failure, unspecified Plan: Patient presented with an elevated creatinine of 1.52. No previous labs available for comparison. Creatinine trending down to 1.45. Continue to monitor BUN/creatinine. She was started in IV fluids, however I will discontinued given that the patient will get 2 units of packed blood cells to avoid fluid overload. 02/14 patient elicits the previous history of increased creatinine. This likely CK V stage III. BUN and creatinine stable at 1.43. Continue to monitor BUN/creatinine, strict I's and O's. Off IV fluids. (5) HTN (hypertension) ICD Code: I10 - Essential (primary) hypertension Plan: Blood pressure seems to be stable. I will resume the patient's home losartan, hold hydrochlorothiazide. (6) Diabetes ICD Code: E11.9 - Type 2 diabetes mellitus without complications Status: Chronic Plan: Medications not entered on med rec. will place on SSI with insulin Novolog and monitor Accu-Cheks. Patient on basal bolus therapy with insulin Lantus and insulin NovoLog as prandial insulin at home. Hold for now since the patient is on a clear liquids and resume once the patient starts eating. My need to adjust the dose once these medications are restarted. Assessment and Plan DVT prophylaxis: Heparin subcutaneously. Problem Qualifiers (1) Anemia: Qualified Codes: D64.9 - Anemia, unspecified (2) HTN (hypertension): Qualified Codes: I10 - Essential (primary) hypertension (3) Diabetes: Qualified Codes: E11.9 - Type 2 diabetes mellitus without complications Ponce Schmidt MD Feb 14, 2017 12:48
--- NOTE | 2017-02-14 14:40 | HHI.GIFU ---
Subjective Remarks Pt upset that he has to stay at hospital all weekend. Wants to eat. Denies rectal bleeding although he apparently told primary he was having some BRBPR intermittently. Denies abd discomfort. (Tena Valenzuela) Objective Vitals I&O Vital Signs Date Time Temp Pulse Resp B/P (MAP) Pulse Ox O2 Delivery O2 Flow Rate FiO2 02/14/17 12:05 98.4 119 19 127/64 (85) 96 02/14/17 08:05 98.1 85 19 137/60 (85) 90 02/14/17 07:56 97 Nasal Cannula 3.00 02/14/17 04:50 97.2 92 20 155/70 (98) 97 02/14/17 04:00 107 02/14/17 02:19 95 Nasal Cannula 2.00 02/14/17 00:00 139 02/13/17 23:42 97.6 112 20 157/87 (110) 92 02/13/17 20:30 Nasal Cannula 3.00 02/13/17 20:15 98.2 118 20 145/81 (102) 94 02/13/17 20:00 111 02/13/17 16:00 97.7 112 20 105/66 (79) 96 02/13/17 16:00 100 I/O 02/13/17 02/13/17 02/13/17 02/14/17 02/14/17 02/14/17 07:00 15:00 23:00 07:00 15:00 23:00 Intake Total 2550 ml 480 ml 1080 ml Output Total 900 ml 625 ml 2100 ml 400 ml Balance 1650 ml -145 ml -1020 ml -400 ml Intake Oral 1250 ml 480 ml 1080 ml Packed Cells 800 ml Blood Product IV Normal Saline Flush 500 ml Output Urine Total 900 ml 625 ml 2100 ml 400 ml # Bowel Movements 2 0 0 Laboratory Laboratory Tests Test 02/14/17 07:53 White Blood Count 11.5 Red Blood Count 3.45 Hemoglobin 8.3 Hematocrit 27.0 Mean Corpuscular Volume 78.3 Mean Corpuscular Hemoglobin 24.0 Mean Corpuscular Hemoglobin Concent 30.7 Red Cell Distribution Width 17.6 Platelet Count 217 Mean Platelet Volume 8.0 Neutrophils (%) (Auto) 61.2 Lymphocytes (%) (Auto) 21.0 Monocytes (%) (Auto) 7.7 Eosinophils (%) (Auto) 9.0 Basophils (%) (Auto) 1.1 Neutrophils # (Auto) 7.0 Lymphocytes # (Auto) 2.4 Monocytes # (Auto) 0.9 Eosinophils # (Auto) 1.0 Basophils # (Auto) 0.1 CBC Comment DIFF FINAL Differential Comment Blood Urea Nitrogen 17 Creatinine 1.43 Random Glucose 171 Total Protein 7.8 Albumin 3.5 Calcium Level 8.8 Phosphorus Level 3.6 Magnesium Level 1.9 Alkaline Phosphatase 68 Aspartate Amino Transf (AST/SGOT) 30 Alanine Aminotransferase (ALT/SGPT) 29 Total Bilirubin 0.8 Sodium Level 131 Potassium Level 3.7 Chloride Level 96 Carbon Dioxide Level 29.8 Anion Gap 5 Estimat Glomerular Filtration Rate 49 Physical Exam HEENT: Normocephalic; atraumatic CHEST: Diminished CARDIAC: Irregular ABDOMEN: Soft, obese, nontender; bowel sounds active x 4 MUSKULOSKELETAL: BLE edema >right leg redness RLE SKIN: Normal; no rash; no jaundice. 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 (Tena Valenzuela [facility]) Assessment and Plan Plan ASSESSMENT - Anemia - Microcytic- hgb 6.3 on admission. Reports receiving iron injections in the past. Was previously follow [facility] in [place] but states it was for decreased WBC. History of blood transfusion when he was 7 years old, denies transfusion since then. Was on Eliquis for a-fib, last dose was Friday morning. Reports starting this medication approx a month and a half ago- for a-fib. Denies ever having EGD/colonoscopy. cleared by cardiology for GI w/u, will need gen anesthesia. told primary he was having some BRBPR intermittently but he denies this to me. [facility] pending obtaining of stool sample, if neg will be started on heparin gtt per primary for DVT prophylaxis. PLAN - heart healthy diet - EGD/colonoscopy Friday - Clears friday - GoLytely - npo after midnight friday night - obtain consent - if on heparin gtt will need to hold 2h prior to procedure - Monitor HH - Transfuse as needed - Continue PPI - Supportive care - Further recs as case unfolds This patient has been seen and examined by myself and Dr. Luz and this note is written on his behalf (Tena Valenzuela) Physician Comments Seen and examined with SHAPER SETTER, EGD/Colonoscopy next week once cleared by cardiology. High risk for anesthesia (Dwight Luz MD) Tena Valenzuela Feb 14, 2017 14:40 Dwight Luz MD Feb 14, 2017 16:43
[2017-02-14] MEDS: ALUMINUM/MAGNESIUM/SIMETH 30 ML CUP PO PRN (17:28)
[2017-02-14] MEDS: DULoxetine HCl DR 60 MG CAP PO SCH (17:31)
[2017-02-14] MEDS: FUROSEMIDE 40 MG TAB PO SCH (17:32)
[2017-02-14] MEDS ORDERED: DIGOXIN 0.5 MG/2 ML VIAL IV PUSH ONE (19:15)
[2017-02-14] MEDS: clonazePAM 1 MG TAB PO SCH (20:32)
--- NOTE | 2017-02-14 22:56 | HHI.PR ---
Subjective Remarks Blood in my stool Objective Vital Signs Date Time Temp Pulse Resp B/P (MAP) Pulse Ox O2 Delivery O2 Flow Rate FiO2 02/14/17 20:50 97.9 104 22 118/59 (78) 95 02/14/17 18:49 93 Nasal Cannula 3.00 02/14/17 16:05 98.7 110 19 161/72 (101) 96 02/14/17 16:00 139 02/14/17 16:00 77 02/14/17 12:05 98.4 119 19 127/64 (85) 96 02/14/17 08:05 98.1 85 19 137/60 (85) 90 02/14/17 08:00 107 02/14/17 07:56 97 Nasal Cannula 3.00 02/14/17 04:50 97.2 92 20 155/70 (98) 97 02/14/17 04:00 107 02/14/17 02:19 95 Nasal Cannula 2.00 02/14/17 00:00 139 02/13/17 23:42 97.6 112 20 157/87 (110) 92 I/O 02/13/17 02/13/17 02/13/17 02/14/17 02/14/17 02/14/17 07:00 15:00 23:00 07:00 15:00 23:00 Intake Total 2550 ml 480 ml 1080 ml 380 ml Output Total 900 ml 625 ml 2100 ml 400 ml 1500 ml Balance 1650 ml -145 ml -1020 ml -400 ml -1120 ml Intake Oral 1250 ml 480 ml 1080 ml 380 ml Packed Cells 800 ml Blood Product IV Normal Saline Flush 500 ml Output Urine Total 900 ml 625 ml 2100 ml 400 ml 1500 ml # Bowel Movements 2 0 0 1 Result Diagram: 02/14/17 0753 02/14/17 0753 Imaging Alert, fully oriented lungs: ventilated Heart: S1, s2 irregular, tachycardia abdomen: obese, no mass, no bruit Ext: no edema, venous insufficiency Last Impressions Chest X-Ray 02/12/17 0000 Signed Impressions: Service Date/Time: Sunday, February 12, 2017 14:25 - CONCLUSION: No acute disease. Isael Blake MD Current Medications Medications (Trade) Dose Ordered Sig/Vania Route Start Time Stop Time Status Last Admin (NS Flush) 2 ml UNSCH PRN IV FLUSH 02/12/17 15:45 (NS Flush) 2 ml BID IV FLUSH 02/12/17 21:00 02/14/17 20:24 (Zofran Inj) 4 mg Q6H PRN IVP 02/12/17 15:45 (Restoril) 15 mg HS PRN PO 02/12/17 15:45 02/12/17 23:22 (Narcan Inj) 0.4 mg UNSCH PRN IV PUSH 02/12/17 15:45 (Laquita-Colace) 1 tab BID PO 02/12/17 21:00 (Milk Of Magnesia Liq) 30 ml Q12H PRN PO 02/12/17 15:45 (Senokot) 17.2 mg Q12H PRN PO 02/12/17 15:45 (Dulcolax Supp) 10 mg DAILY PRN RECTAL 02/12/17 15:45 (Lactulose Liq) 30 ml DAILY PRN PO 02/12/17 15:45 (Protonix Inj) 40 mg Q12HR IV PUSH 02/13/17 13:00 02/14/17 20:24 (Mag-Al Plus Susp Liq) 30 ml PCHS PRN PO 02/13/17 12:00 02/14/17 17:28 (D50w (Vial) Inj) 50 ml UNSCH PRN IV PUSH 02/13/17 17:30 (Glucagon Inj) 1 mg UNSCH PRN OTHER 02/13/17 17:30 (NovoLOG SUPPLEMENTAL SCALE) 1 ACHS SLIDING SCALE SQ 02/13/17 21:00 02/14/17 20:26 (KlonoPIN) 1 mg HS PRN PO 02/13/17 19:30 02/13/17 21:48 (Duoneb Neb) 1 ampule Q6HR WHILE AWAKE NEB NEB 02/13/17 20:00 02/14/17 18:49 (Cardizem) 60 mg Q6HR PO 02/13/17 19:30 02/14/17 17:23 (Tylenol) 650 mg Q4H PRN PO 02/14/17 11:45 02/14/17 12:46 (KlonoPIN) 1 mg HS PO 02/14/17 21:00 02/14/17 20:32 (Cymbalta Dr) 60 mg DAILY PO 02/14/17 15:00 02/14/17 17:31 (Lasix) 40 mg DAILY PO 02/14/17 15:00 02/14/17 17:32 (Cozaar) 100 mg DAILY PO 02/15/17 09:00 (Colyte Liq) 4,000 ml ONCE ONCE PO 02/16/17 16:00 02/16/17 16:01 (Lanoxin) 0.25 mg DAILY PO 02/15/17 09:00 Assessment and Plan Problem List: (1) Atrial fibrillation with RVR ICD Codes: I48.91 - Unspecified atrial fibrillation Status: Acute Plan: In atrial fibrillation with fast ventricular response I discussed the case with Dr Carranza HR need to be control Meds will be modified Digoxin will be added on a regular basis also blood in stool Heparin will be dc despite his high risks for CVA. Will need GI work up His condition is of care. follow up Dr Mcgee in AM (2) HTN (hypertension) ICD Codes: I10 - Essential (primary) hypertension Plan: SBP 161 Plenty of room for rate control medications modifications Problem Qualifiers (1) HTN (hypertension): Qualified Codes: I10 - Essential (primary) hypertension Lefty Whitt MD Feb 14, 2017 22:56
[2017-02-14] MEDS: clonazePAM 1 MG TAB PO PRN (23:08)
[2017-02-15] VITALS (12 sets, daily range): BP systolic 111–151; BP diastolic 55–78; PULSE 71–110; RESP 18–20; TEMP 97.5–98.6; O2SAT 94–97
[2017-02-15] MEDS: DILTIAZEM HCL 60 MG TAB PO SCH ×3 (05:21→17:59)
[2017-02-15] MEDS: ACETAMINOPHEN 325 MG TAB PO PRN ×2 (05:21→15:59)
[2017-02-15 07:24] LABS: HEMATOCRIT 26.2 % (39.0-51.0); MEAN CELL VOLUME 78.4 FL (80.0-100.0); MEAN CORPUSCULAR HEMOGLOBIN 23.8 PG (27.0-34.0); MEAN CORPUSCULAR HGB CONC 30.4 % (32.0-36.0); PLATELET COUNT 208 TH/MM3 (150-450); RED BLOOD COUNT 3.34 MIL/MM3 (4.50-5.90); REVIEW FLAG FINAL; WHITE BLOOD COUNT 10.6 TH/MM3 (4.0-11.0)
[2017-02-15 07:46] LABS: BICARBONATE 27.7 MEQ/L (21.0-32.0); POTASSIUM 3.9 MEQ/L (3.5-5.1)
[2017-02-15] MEDS: RESP: ALBUTEROL 2.5 MG/IPRATROPIUM 0.5 MG NEB (SCH) NEB ×3 (07:56→19:44)
[2017-02-15] MEDS: LOSARTAN 50 MG TAB PO SCH (09:00)
[2017-02-15] MEDS: DOCUSATE SODIUM 50 MG/SENNA 8.6 MG TAB PO SCH ×2 (09:00→21:00)
[2017-02-15] MEDS: DULoxetine HCl DR 60 MG CAP PO SCH (09:01)
[2017-02-15] MEDS: DIGOXIN 0.25 MG TAB PO SCH (09:01)
[2017-02-15] MEDS: PANTOPRAZOLE SODIUM 40 MG VIAL IV PUSH SCH ×2 (09:01→21:33)
[2017-02-15] MEDS: FUROSEMIDE 40 MG TAB PO SCH (09:01)
[2017-02-15] MEDS: SODIUM CHLORIDE 0.9% FLUSH 10 ML FLUSH IV FLUSH SCH ×2 (09:02→21:34)
[2017-02-15] MEDS: INSULIN ASPART SUPPLEMENTAL SCALE SQ SCH ×4 (09:03→21:33)
--- NOTE | 2017-02-15 12:10 | HHI.GIFU ---
Subjective Remarks Pt sitting up in bed, getting bath from . Today he does admit BRBPR, initially maroon and then 2nd episode bright red. (Tena Valenzuela) Objective Vitals I&O Vital Signs Date Time Temp Pulse Resp B/P (MAP) Pulse Ox O2 Delivery O2 Flow Rate FiO2 02/15/17 08:06 97.6 84 20 151/78 (102) 94 02/15/17 07:58 97 Nasal Cannula 3.00 02/15/17 05:00 97.5 93 18 113/58 (76) 96 02/15/17 04:00 78 02/15/17 00:00 88 02/14/17 23:50 97.4 82 18 165/77 (106) 96 02/14/17 20:50 97.9 104 22 118/59 (78) 95 02/14/17 20:00 100 02/14/17 19:30 Nasal Cannula 3.00 02/14/17 18:49 93 Nasal Cannula 3.00 02/14/17 16:05 98.7 110 19 161/72 (101) 96 02/14/17 16:00 139 02/14/17 16:00 77 02/14/17 12:05 98.4 119 19 127/64 (85) 96 I/O 02/14/17 02/14/17 02/14/17 02/15/17 02/15/17 02/15/17 07:00 15:00 23:00 07:00 15:00 23:00 Intake Total 1080 ml 380 ml 1120 ml Output Total 2100 ml 400 ml 1500 ml 1160 ml Balance -1020 ml -400 ml -1120 ml -40 ml Intake Oral 1080 ml 380 ml 1120 ml Output Urine Total 2100 ml 400 ml 1500 ml 1160 ml # Bowel Movements 0 1 0 Laboratory Laboratory Tests Test 02/15/17 06:46 White Blood Count 10.6 Red Blood Count 3.34 Hemoglobin 8.0 Hematocrit 26.2 Mean Corpuscular Volume 78.4 Mean Corpuscular Hemoglobin 23.8 Mean Corpuscular Hemoglobin Concent 30.4 Red Cell Distribution Width 18.0 Platelet Count 208 Mean Platelet Volume 8.0 Blood Urea Nitrogen 18 Creatinine 1.43 Random Glucose 173 Calcium Level 8.6 Sodium Level 133 Potassium Level 3.9 Chloride Level 97 Carbon Dioxide Level 27.7 Anion Gap 8 Estimat Glomerular Filtration Rate 49 Date/Time Source Procedure Growth Status 02/14/17 16:04 Stool Stool Stool Occult Blood (VIDHYA) - Final HEMOCCULT NEGATIVE Complete Physical Exam HEENT: Normocephalic; atraumatic CHEST: Diminished CARDIAC: Irregular ABDOMEN: Soft, obese, nontender; bowel sounds active x 4 MUSKULOSKELETAL: BLE edema right leg > left redness RLE SKIN: Normal; no rash; no jaundice. 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 (Tena Valenzuela) Assessment and Plan Plan ASSESSMENT - Anemia - Microcytic- hgb 6.3 on admission. Reports receiving iron injections in the past. Was previously follow [facility] in [place] but states it was for decreased WBC. History of blood transfusion when he was 7 years old, denies transfusion since then. Was on Eliquis for a-fib, last dose was Friday morning. Reports starting this medication approx a month and a half ago- for a-fib. Denies ever having EGD/colonoscopy. cleared by cardiology for GI w/u, will need gen anesthesia. heme neg stool but he admits BRBPR 2 x episodes with stool. no heparin per cardiology PLAN - heart healthy diet - EGD/colonoscopy Friday - Clears friday - GoLytely - npo after midnight friday night - obtain consent - Monitor HH - Transfuse as needed - Continue PPI - Supportive care - Further recs as case unfolds This patient has been seen and examined by myself and Dr. Qureshi and this note is written on his behalf (Tena Valenzuela) Plan Patient was seen and examined, agree with above-noted and plan, colonoscopy and endoscopy Friday with monitoring of his blood count (Jean-Pierre Qureshi MD) Tena Valenzuela Feb 15, 2017 12:10 Jean-Pierre Qureshi MD Feb 15, 2017 18:40
--- NOTE | 2017-02-15 14:52 | PD.CARD.PN ---
Subjective Subjective Remarks No events overnight Heart rates controlled Feels somewhat better Objective Medications Current Medications Medications (Trade) Dose Ordered Sig/Vania Route Start Time Stop Time Status Last Admin (NS Flush) 2 ml UNSCH PRN IV FLUSH 02/12/17 15:45 (NS Flush) 2 ml BID IV FLUSH 02/12/17 21:00 02/15/17 09:02 (Zofran Inj) 4 mg Q6H PRN IVP 02/12/17 15:45 (Restoril) 15 mg HS PRN PO 02/12/17 15:45 02/12/17 23:22 (Narcan Inj) 0.4 mg UNSCH PRN IV PUSH 02/12/17 15:45 (Laquita-Colace) 1 tab BID PO 02/12/17 21:00 02/15/17 09:00 (Milk Of Magnesia Liq) 30 ml Q12H PRN PO 02/12/17 15:45 (Senokot) 17.2 mg Q12H PRN PO 02/12/17 15:45 (Dulcolax Supp) 10 mg DAILY PRN RECTAL 02/12/17 15:45 (Lactulose Liq) 30 ml DAILY PRN PO 02/12/17 15:45 (Protonix Inj) 40 mg Q12HR IV PUSH 02/13/17 13:00 02/15/17 09:01 (Mag-Al Plus Susp Liq) 30 ml PCHS PRN PO 02/13/17 12:00 02/14/17 17:28 (D50w (Vial) Inj) 50 ml UNSCH PRN IV PUSH 02/13/17 17:30 (Glucagon Inj) 1 mg UNSCH PRN OTHER 02/13/17 17:30 (NovoLOG SUPPLEMENTAL SCALE) 1 ACHS SLIDING SCALE SQ 02/13/17 21:00 02/15/17 12:57 (KlonoPIN) 1 mg HS PRN PO 02/13/17 19:30 02/14/17 23:08 (Duoneb Neb) 1 ampule Q6HR WHILE AWAKE NEB NEB 02/13/17 20:00 02/15/17 14:06 (Cardizem) 60 mg Q6HR PO 02/13/17 19:30 02/15/17 12:57 (Tylenol) 650 mg Q4H PRN PO 02/14/17 11:45 02/15/17 05:21 (KlonoPIN) 1 mg HS PO 02/14/17 21:00 02/14/17 20:32 (Cymbalta Dr) 60 mg DAILY PO 02/14/17 15:00 02/15/17 09:01 (Lasix) 40 mg DAILY PO 02/14/17 15:00 02/15/17 09:01 (Cozaar) 100 mg DAILY PO 02/15/17 09:00 02/15/17 09:00 (Colyte Liq) 4,000 ml ONCE ONCE PO 02/16/17 16:00 02/16/17 16:01 (Lanoxin) 0.25 mg DAILY PO 02/15/17 09:00 02/15/17 09:01 Vital Signs / I&O Vital Signs Date Time Temp Pulse Resp B/P (MAP) Pulse Ox O2 Delivery O2 Flow Rate FiO2 02/15/17 12:06 98.6 88 20 113/56 (75) 94 02/15/17 08:06 97.6 84 20 151/78 (102) 94 02/15/17 07:58 97 Nasal Cannula 3.00 02/15/17 05:00 97.5 93 18 113/58 (76) 96 02/15/17 04:00 78 02/15/17 00:00 88 02/14/17 23:50 97.4 82 18 165/77 (106) 96 02/14/17 20:50 97.9 104 22 118/59 (78) 95 02/14/17 20:00 100 02/14/17 19:30 Nasal Cannula 3.00 02/14/17 18:49 93 Nasal Cannula 3.00 02/14/17 16:05 98.7 110 19 161/72 (101) 96 02/14/17 16:00 139 02/14/17 16:00 77 I/O 02/14/17 02/14/17 02/14/17 02/15/17 02/15/17 02/15/17 07:00 15:00 23:00 07:00 15:00 23:00 Intake Total 1080 ml 380 ml 1120 ml Output Total 2100 ml 400 ml 1500 ml 1160 ml Balance -1020 ml -400 ml -1120 ml -40 ml Intake Oral 1080 ml 380 ml 1120 ml Output Urine Total 2100 ml 400 ml 1500 ml 1160 ml # Bowel Movements 0 1 0 Physical Exam GENERAL: NAD, AAOx3 SKIN: Warm and dry. HEAD: Atraumatic. Normocephalic. EYES: Pupils equal and round. No scleral icterus. No injection or drainage. ENT: No nasal bleeding or discharge. Mucous membranes pink and moist. NECK: Trachea midline. No JVD. CARDIOVASCULAR: Irregularly irregular RESPIRATORY: No accessory muscle use. Decreased breath sounds bilaterally GASTROINTESTINAL: Abdomen soft, non-tender, nondistended. Hepatic and splenic margins not palpable. MUSCULOSKELETAL: Extremities without clubbing, cyanosis, or edema. No obvious deformities. NEUROLOGICAL: Awake and alert. No obvious cranial nerve deficits. Motor grossly within normal limits. Five out of 5 muscle strength in the arms and legs. Normal speech. PSYCHIATRIC: Appropriate mood and affect; insight and judgment normal. Laboratory Laboratory Tests Test 02/15/17 06:46 White Blood Count 10.6 TH/MM3 Red Blood Count 3.34 MIL/MM3 Hemoglobin 8.0 GM/DL Hematocrit 26.2 % Mean Corpuscular Volume 78.4 FL Mean Corpuscular Hemoglobin 23.8 PG Mean Corpuscular Hemoglobin Concent 30.4 % Red Cell Distribution Width 18.0 % Platelet Count 208 TH/MM3 Mean Platelet Volume 8.0 FL Blood Urea Nitrogen 18 MG/DL Creatinine 1.43 MG/DL Random Glucose 173 MG/DL Calcium Level 8.6 MG/DL Sodium Level 133 MEQ/L Potassium Level 3.9 MEQ/L Chloride Level 97 MEQ/L Carbon Dioxide Level 27.7 MEQ/L Anion Gap 8 MEQ/L Estimat Glomerular Filtration Rate 49 ML/MIN Assessment and Plan Problem List: (1) Atrial fibrillation with RVR ICD Codes: I48.91 - Unspecified atrial fibrillation Status: Acute (2) Anemia ICD Codes: D64.9 - Anemia, unspecified Status: Acute (3) Renal insufficiency ICD Codes: N28.9 - Disorder of kidney and ureter, unspecified Status: Acute (4) Rectal bleed ICD Codes: K62.5 - Hemorrhage of anus and rectum Status: Acute (5) HTN (hypertension) ICD Codes: I10 - Essential (primary) hypertension (6) MARY (acute kidney injury) ICD Codes: N17.9 - Acute kidney failure, unspecified (7) Diabetes ICD Codes: E11.9 - Type 2 diabetes mellitus without complications Status: Chronic Assessment and Plan 1) Afib with RVR Now controlled after starting digoxin Anti-coagulation on hold at this time due possible GI bleed Consideration of Afib ablation, but most likely in 3-4 weeks as should be on mail weigher anti-coagulation if possible beforehand 2) Possible GI bleed For EGD/Cscope Friday Problem Qualifiers (1) Anemia: Qualified Codes: D64.9 - Anemia, unspecified (2) HTN (hypertension): Qualified Codes: I10 - Essential (primary) hypertension (3) Diabetes: Qualified Codes: E11.9 - Type 2 diabetes mellitus without complications Tom Mcgee DO Feb 15, 2017 14:51
--- NOTE | 2017-02-15 15:44 | HHI.PR ---
Subjective Remarks Patient says he is feeling all right today. Denies any chest pain. Reports shortness of breath is at baseline. Denies any bloody bowel movements today. Objective Vital Signs Date Time Temp Pulse Resp B/P (MAP) Pulse Ox O2 Delivery O2 Flow Rate FiO2 02/15/17 12:06 98.6 88 20 113/56 (75) 94 02/15/17 08:06 97.6 84 20 151/78 (102) 94 02/15/17 07:58 97 Nasal Cannula 3.00 02/15/17 05:00 97.5 93 18 113/58 (76) 96 02/15/17 04:00 78 02/15/17 00:00 88 02/14/17 23:50 97.4 82 18 165/77 (106) 96 02/14/17 20:50 97.9 104 22 118/59 (78) 95 02/14/17 20:00 100 02/14/17 19:30 Nasal Cannula 3.00 02/14/17 18:49 93 Nasal Cannula 3.00 02/14/17 16:05 98.7 110 19 161/72 (101) 96 02/14/17 16:00 139 02/14/17 16:00 77 I/O 02/14/17 02/14/17 02/14/17 02/15/17 02/15/17 02/15/17 07:00 15:00 23:00 07:00 15:00 23:00 Intake Total 1080 ml 380 ml 1120 ml Output Total 2100 ml 400 ml 1500 ml 1160 ml Balance -1020 ml -400 ml -1120 ml -40 ml Intake Oral 1080 ml 380 ml 1120 ml Output Urine Total 2100 ml 400 ml 1500 ml 1160 ml # Bowel Movements 0 1 0 Result Diagram: 02/15/17 0646 02/15/17 0646 Objective Remarks GENERAL: Patient sitting up on edge of bed. Appears comfortable. SKIN: Warm and dry. HEAD: Normocephalic. EYES: No scleral icterus. No injection or drainage. NECK: Supple, trachea midline. No JVD or lymphadenopathy. CARDIOVASCULAR: Regular rate and rhythm without murmurs, gallops, or rubs. RESPIRATORY: Breath sounds equal bilaterally. No accessory muscle use. GASTROINTESTINAL: Abdomen soft, non-tender, nondistended. MUSCULOSKELETAL: No cyanosis .trace edema. BACK: Nontender without obvious deformity. No CVA tenderness. A/P Assessment and Plan //Anemia ICD Code: D64.9 - Anemia, unspecified Status: Acute Plan: his is a very pleasant 66 year old male with hx hemorrhoids, AFib on eliquis, history of iron deficiency anemia, hypertension, diabetes, emphysema, morbidly obese, who presented to the ER after being sent to ER by Dr Whitt during consult for an ablation. He was found to be anemic with hgb 6.3 on admission. The patient was then admitted to the medical unit, monitor on telemetry. Patient presented with severe microcytic anemia and a hemoglobin of 6.3, 2 units of packed blood cells were ordered in the ED for transfusion. The patient is being transfused. There is no evidence of active bleeding. Will check stool guaiac. GI consulted, for possible EGD/colonoscopy after cardiology clearance. 02/14 hemoglobin is stable at 8.3. There is no evidence of active bleeding. Cardiology has cleared the patient for GI procedures. And Nicole to monitor CBC and transfuse as needed for hemoglobin less than 7 or symptomatic anemia. 02/15. Hemoglobin stable 8.0. Plan for EGD/colonoscopy on Friday. //Atrial fibrillation with RVR ICD Code: I48.91 - Unspecified atrial fibrillation Status: Acute Plan: The patient has been taking care by Dr. Whitt as an outpatient. The patient was referred to the hospital for ablation. Continue to hold Eliquis secondary to severe anemia. 02/14 Continue heparin SQ. Stool for Hemoccult blood has been ordered. If this is negative then I will start the patient on heparin drip awaiting for his procedure. Heart rate is rate controlled. Continue Cardizem 60 mg by mouth every 6 hours and continue to follow-up cardiology recommendations. = 02/15. Heart rate controlled. Discussed with cardiology. Continue Cardizem, digoxin. //Rectal bleed ICD Code: K62.5 - Hemorrhage of anus and rectum Status: Acute Plan: Likely due to hemorrhoids. No active bright red blood per rectum. The patient states that he has occasional episodes of bright red blood per rectum. There is no active bleeding noted. = Colonoscopy Friday. //MARY (acute kidney injury) ICD Code: N17.9 - Acute kidney failure, unspecified Plan: Patient presented with an elevated creatinine of 1.52. No previous labs available for comparison. Creatinine trending down to 1.45. Continue to monitor BUN/creatinine. She was started in IV fluids, however I will discontinued given that the patient will get 2 units of packed blood cells to avoid fluid overload. 02/14 patient elicits the previous history of increased creatinine. This likely CK V stage III. BUN and creatinine stable at 1.43. Continue to monitor BUN/creatinine, strict I's and O's. Off IV fluids. = 02/15. Creatinine 1.4. Stable. Continue to monitor. //HTN (hypertension) ICD Code: I10 - Essential (primary) hypertension Plan: Blood pressure seems to be stable. I will resume the patient's home losartan, hold hydrochlorothiazide. = 02/15. Continue to hold hydrochlorothiazide. Blood pressure acceptable. Continue to monitor. //Diabetes ICD Code: E11.9 - Type 2 diabetes mellitus without complications Status: Chronic Plan: Medications not entered on med rec. will place on SSI with insulin Novolog and monitor Accu-Cheks. Patient on basal bolus therapy with insulin Lantus and insulin NovoLog as prandial insulin at home. Hold for now since the patient is on a clear liquids and resume once the patient starts eating. My need to adjust the dose once these medications are restarted. -02/15. Glucose elevated in the 200s last night. In the 170s today. We'll add Levemir 5 units twice daily. Continue to monitor. Assessment and Plan DVT prophylaxis: Heparin subcutaneously. Discharge Planning Plan for EGD/colonoscopy on Friday. Sameer Felder MD Feb 15, 2017 15:43
[2017-02-15] MEDS: INSULIN DETEMIR 100 UNITS/ML VIAL SQ SCH (21:33)
[2017-02-15] MEDS: clonazePAM 1 MG TAB PO SCH (21:33)
[2017-02-16] VITALS (9 sets, daily range): BP systolic 137–164; BP diastolic 63–73; PULSE 58–86; RESP 18–21; TEMP 97.4–98.1; O2SAT 93–98
[2017-02-16] MEDS: DILTIAZEM HCL 60 MG TAB PO SCH ×4 (00:26→18:08)
[2017-02-16] MEDS: ACETAMINOPHEN 325 MG TAB PO PRN (05:16)
[2017-02-16 08:00] LABS: AUTOMATED NEUTROPHIL # 5.1 TH/MM3 (1.8-7.7); BASOPHIL # 0.1 TH/MM3 (0-0.2); BASOPHIL % 1.4 % (0.0-2.0); EOSINOPHIL % 11.3 % (0.0-4.0); HEMATOCRIT 27.2 % (39.0-51.0); HEMO FLAGS DIFF FINAL; LYMPH % 19.2 % (9.0-44.0); LYMPHOCYTE # 1.7 TH/MM3 (1.0-4.8); MEAN CORPUSCULAR HEMOGLOBIN 23.2 PG (27.0-34.0); MONO % 8.5 % (0.0-8.0); NEUT % 59.6 % (16.0-70.0); PLATELET COUNT 189 TH/MM3 (150-450); RED BLOOD COUNT 3.39 MIL/MM3 (4.50-5.90); RED CELL DISTRIBUTION WIDTH 18.5 % (11.6-17.2); WHITE BLOOD COUNT 8.6 TH/MM3 (4.0-11.0)
[2017-02-16] MEDS: RESP: ALBUTEROL 2.5 MG/IPRATROPIUM 0.5 MG NEB (SCH) NEB ×3 (08:00→19:02)
[2017-02-16] MEDS: DULoxetine HCl DR 60 MG CAP PO SCH (08:22)
[2017-02-16] MEDS: LOSARTAN 50 MG TAB PO SCH (08:23)
[2017-02-16] MEDS: DOCUSATE SODIUM 50 MG/SENNA 8.6 MG TAB PO SCH ×2 (08:23→21:00)
[2017-02-16] MEDS: FUROSEMIDE 40 MG TAB PO SCH (08:23)
[2017-02-16 08:24] LABS: BICARBONATE 27.7 MEQ/L (21.0-32.0); MAGNESIUM 1.9 MG/DL (1.5-2.5); POTASSIUM 3.9 MEQ/L (3.5-5.1)
[2017-02-16] MEDS: DIGOXIN 0.25 MG TAB PO SCH (08:24)
[2017-02-16] MEDS: SODIUM CHLORIDE 0.9% FLUSH 10 ML FLUSH IV FLUSH SCH ×2 (08:24→21:00)
[2017-02-16] MEDS: PANTOPRAZOLE SODIUM 40 MG VIAL IV PUSH SCH ×2 (08:24→21:00)
[2017-02-16] MEDS: INSULIN DETEMIR 100 UNITS/ML VIAL SQ SCH ×2 (08:25→21:00)
[2017-02-16] MEDS: INSULIN ASPART SUPPLEMENTAL SCALE SQ SCH ×4 (08:26→21:00)
--- NOTE | 2017-02-16 11:50 | PD.CARD.PN ---
Subjective Subjective Remarks No events overnight Heart rates controlled Feels somewhat better Objective Medications Current Medications Medications (Trade) Dose Ordered Sig/Vania Route Start Time Stop Time Status Last Admin (NS Flush) 2 ml UNSCH PRN IV FLUSH 02/12/17 15:45 (NS Flush) 2 ml BID IV FLUSH 02/12/17 21:00 02/16/17 08:24 (Zofran Inj) 4 mg Q6H PRN IVP 02/12/17 15:45 (Restoril) 15 mg HS PRN PO 02/12/17 15:45 02/12/17 23:22 (Narcan Inj) 0.4 mg UNSCH PRN IV PUSH 02/12/17 15:45 (Laquita-Colace) 1 tab BID PO 02/12/17 21:00 02/16/17 08:23 (Milk Of Magnesia Liq) 30 ml Q12H PRN PO 02/12/17 15:45 (Senokot) 17.2 mg Q12H PRN PO 02/12/17 15:45 (Dulcolax Supp) 10 mg DAILY PRN RECTAL 02/12/17 15:45 (Lactulose Liq) 30 ml DAILY PRN PO 02/12/17 15:45 (Protonix Inj) 40 mg Q12HR IV PUSH 02/13/17 13:00 02/16/17 08:24 (Mag-Al Plus Susp Liq) 30 ml PCHS PRN PO 02/13/17 12:00 02/14/17 17:28 (D50w (Vial) Inj) 50 ml UNSCH PRN IV PUSH 02/13/17 17:30 (Glucagon Inj) 1 mg UNSCH PRN OTHER 02/13/17 17:30 (NovoLOG SUPPLEMENTAL SCALE) 1 ACHS SLIDING SCALE SQ 02/13/17 21:00 02/16/17 08:26 (KlonoPIN) 1 mg HS PRN PO 02/13/17 19:30 02/14/17 23:08 (Duoneb Neb) 1 ampule Q6HR WHILE AWAKE NEB NEB 02/13/17 20:00 02/16/17 08:00 (Cardizem) 60 mg Q6HR PO 02/13/17 19:30 02/16/17 05:14 (Tylenol) 650 mg Q4H PRN PO 02/14/17 11:45 02/16/17 05:16 (KlonoPIN) 1 mg HS PO 02/14/17 21:00 02/15/17 21:33 (Cymbalta Dr) 60 mg DAILY PO 02/14/17 15:00 02/16/17 08:22 (Lasix) 40 mg DAILY PO 02/14/17 15:00 02/16/17 08:23 (Cozaar) 100 mg DAILY PO 02/15/17 09:00 02/16/17 08:23 (Colyte Liq) 4,000 ml ONCE ONCE PO 02/16/17 16:00 02/16/17 16:01 (Lanoxin) 0.25 mg DAILY PO 02/15/17 09:00 02/16/17 08:24 (Levemir Inj) 5 units Q12HR SQ 02/15/17 21:00 02/16/17 08:25 Vital Signs / I&O Vital Signs Date Time Temp Pulse Resp B/P (MAP) Pulse Ox O2 Delivery O2 Flow Rate FiO2 02/16/17 08:06 98.1 80 19 148/73 (98) 96 02/16/17 07:20 97 Nasal Cannula 3.00 02/16/17 04:00 73 02/16/17 04:00 97.4 58 21 150/65 (93) 94 02/16/17 00:00 98.0 80 20 137/67 (90) 97 02/16/17 00:00 73 02/15/17 22:44 Nasal Cannula 3.00 02/15/17 20:00 98.2 88 20 111/55 (73) 94 02/15/17 20:00 98 02/15/17 19:48 95 Nasal Cannula 3.00 02/15/17 17:00 20 02/15/17 16:06 98.6 95 20 117/67 (84) 95 02/15/17 16:00 110 02/15/17 12:15 103 02/15/17 12:15 103 02/15/17 12:06 98.6 88 20 113/56 (75) 94 I/O 02/15/17 02/15/17 02/15/17 02/16/17 02/16/17 02/16/17 07:00 15:00 23:00 07:00 15:00 23:00 Intake Total 1120 ml 520 ml 200 ml Output Total 1160 ml 2500 ml 1200 ml Balance -40 ml -1980 ml -1000 ml Intake Oral 1120 ml 520 ml 200 ml Output Urine Total 1160 ml 2500 ml 1200 ml # Bowel Movements 0 2 0 Physical Exam GENERAL: NAD, AAOx3 SKIN: Warm and dry. HEAD: Atraumatic. Normocephalic. EYES: Pupils equal and round. No scleral icterus. No injection or drainage. ENT: No nasal bleeding or discharge. Mucous membranes pink and moist. NECK: Trachea midline. No JVD. CARDIOVASCULAR: Irregularly irregular RESPIRATORY: No accessory muscle use. Decreased breath sounds bilaterally GASTROINTESTINAL: Abdomen soft, non-tender, nondistended. Hepatic and splenic margins not palpable. MUSCULOSKELETAL: Extremities without clubbing, cyanosis, or edema. No obvious deformities. NEUROLOGICAL: Awake and alert. No obvious cranial nerve deficits. Motor grossly within normal limits. Five out of 5 muscle strength in the arms and legs. Normal speech. PSYCHIATRIC: Appropriate mood and affect; insight and judgment normal. Laboratory Laboratory Tests Test 02/16/17 06:39 White Blood Count 8.6 TH/MM3 Red Blood Count 3.39 MIL/MM3 Hemoglobin 7.9 GM/DL Hematocrit 27.2 % Mean Corpuscular Volume 80.0 FL Mean Corpuscular Hemoglobin 23.2 PG Mean Corpuscular Hemoglobin Concent 29.0 % Red Cell Distribution Width 18.5 % Platelet Count 189 TH/MM3 Mean Platelet Volume 8.2 FL Neutrophils (%) (Auto) 59.6 % Lymphocytes (%) (Auto) 19.2 % Monocytes (%) (Auto) 8.5 % Eosinophils (%) (Auto) 11.3 % Basophils (%) (Auto) 1.4 % Neutrophils # (Auto) 5.1 TH/MM3 Lymphocytes # (Auto) 1.7 TH/MM3 Monocytes # (Auto) 0.7 TH/MM3 Eosinophils # (Auto) 1.0 TH/MM3 Basophils # (Auto) 0.1 TH/MM3 CBC Comment DIFF FINAL Differential Comment Blood Urea Nitrogen 21 MG/DL Creatinine 1.65 MG/DL Random Glucose 175 MG/DL Albumin 3.3 GM/DL Calcium Level 8.3 MG/DL Phosphorus Level 5.1 MG/DL Magnesium Level 1.9 MG/DL Sodium Level 134 MEQ/L Potassium Level 3.9 MEQ/L Chloride Level 98 MEQ/L Carbon Dioxide Level 27.7 MEQ/L Anion Gap 8 MEQ/L Estimat Glomerular Filtration Rate 42 ML/MIN Assessment and Plan Problem List: (1) Atrial fibrillation with RVR ICD Codes: I48.91 - Unspecified atrial fibrillation Status: Acute (2) Anemia ICD Codes: D64.9 - Anemia, unspecified Status: Acute (3) Renal insufficiency ICD Codes: N28.9 - Disorder of kidney and ureter, unspecified Status: Acute (4) Rectal bleed ICD Codes: K62.5 - Hemorrhage of anus and rectum Status: Acute (5) HTN (hypertension) ICD Codes: I10 - Essential (primary) hypertension (6) MARY (acute kidney injury) ICD Codes: N17.9 - Acute kidney failure, unspecified (7) Diabetes ICD Codes: E11.9 - Type 2 diabetes mellitus without complications Status: Chronic Assessment and Plan 1) Afib with RVR Now controlled after starting digoxin Anti-coagulation on hold at this time due possible GI bleed Consideration of Afib ablation, but most likely in 3-4 weeks as should be on halfway anti-coagulation if possible beforehand Wants to try to come off Cardizem, feels too many side effects Would wait until after EGD/Cscope to change medication plans 2) Possible GI bleed For EGD/Cscope Friday 3) Dr. Whitt to follow up for further recommendations on possible Afib ablation Problem Qualifiers (1) Anemia: Qualified Codes: D64.9 - Anemia, unspecified (2) HTN (hypertension): Qualified Codes: I10 - Essential (primary) hypertension (3) Diabetes: Qualified Codes: E11.9 - Type 2 diabetes mellitus without complications Tom Mcgee DO Feb 16, 2017 11:50
[2017-02-16] MEDS ORDERED: PEG (High)/E-LYTE SOLN 4000 ML BTL PO ONE (16:00)
--- NOTE | 2017-02-16 16:42 | HHI.GIFU ---
Subjective Remarks Patient is in no apparent distress. Family at bedside. (Viviana Alcocer) Objective Vitals I&O Vital Signs Date Time Temp Pulse Resp B/P (MAP) Pulse Ox O2 Delivery O2 Flow Rate FiO2 02/16/17 12:06 97.4 86 19 145/66 (92) 93 02/16/17 08:06 98.1 80 19 148/73 (98) 96 02/16/17 07:20 97 Nasal Cannula 3.00 02/16/17 07:00 94 Nasal Cannula 3.00 02/16/17 04:00 73 02/16/17 04:00 97.4 58 21 150/65 (93) 94 02/16/17 00:00 98.0 80 20 137/67 (90) 97 02/16/17 00:00 73 02/15/17 22:44 Nasal Cannula 3.00 02/15/17 20:00 98.2 88 20 111/55 (73) 94 02/15/17 20:00 98 02/15/17 19:48 95 Nasal Cannula 3.00 02/15/17 17:00 20 I/O 02/15/17 02/15/17 02/15/17 02/16/17 02/16/17 02/16/17 07:00 15:00 23:00 07:00 15:00 23:00 Intake Total 1120 ml 520 ml 200 ml Output Total 1160 ml 2500 ml 1200 ml Balance -40 ml -1980 ml -1000 ml Intake Oral 1120 ml 520 ml 200 ml Output Urine Total 1160 ml 2500 ml 1200 ml # Bowel Movements 0 2 0 Laboratory Laboratory Tests Test 02/16/17 06:39 White Blood Count 8.6 Red Blood Count 3.39 Hemoglobin 7.9 Hematocrit 27.2 Mean Corpuscular Volume 80.0 Mean Corpuscular Hemoglobin 23.2 Mean Corpuscular Hemoglobin Concent 29.0 Red Cell Distribution Width 18.5 Platelet Count 189 Mean Platelet Volume 8.2 Neutrophils (%) (Auto) 59.6 Lymphocytes (%) (Auto) 19.2 Monocytes (%) (Auto) 8.5 Eosinophils (%) (Auto) 11.3 Basophils (%) (Auto) 1.4 Neutrophils # (Auto) 5.1 Lymphocytes # (Auto) 1.7 Monocytes # (Auto) 0.7 Eosinophils # (Auto) 1.0 Basophils # (Auto) 0.1 CBC Comment DIFF FINAL Differential Comment Blood Urea Nitrogen 21 Creatinine 1.65 Random Glucose 175 Albumin 3.3 Calcium Level 8.3 Phosphorus Level 5.1 Magnesium Level 1.9 Sodium Level 134 Potassium Level 3.9 Chloride Level 98 Carbon Dioxide Level 27.7 Anion Gap 8 Estimat Glomerular Filtration Rate 42 Date/Time Source Procedure Growth Status 02/14/17 16:04 Stool Stool Stool Occult Blood (VIDHYA) - Final HEMOCCULT NEGATIVE Complete Imaging Last Impressions Chest X-Ray 02/12/17 0000 Signed Impressions: Service Date/Time: Sunday, February 12, 2017 14:25 - CONCLUSION: No acute disease. Isael Blake MD Physical Exam HEENT: Normocephalic; atraumatic CHEST: Diminished CARDIAC: Irregularly irregular ABDOMEN: Soft, obese, nontender, nondistended; bowel sounds active x 4 SKIN: Normal; no rash; no jaundice. TRADE SHOW SPECIALIST: No focal deficits; alert and oriented times three. (Viviana Alcocer) Assessment and Plan Plan ASSESSMENT - Anemia, hgb 6.3 on admission. Reports receiving iron injections in the past. Was previously follow [facility] in [place], but states it was for decreased WBC. History of blood transfusion when he was 7 years old, denies transfusion since then. Was on Eliquis for a-fib, last dose was Friday morning. Reports starting this medication approx a month and a half ago for Afib. Denies ever having EGD/colonoscopy. Cleared by cardiology for GI w/u, will need general anesthesia. Heme negative stool, but he admits BRBPR with stool. No heparin per cardiology. Patient is s/p 2 transfusions of PRBCs. 02/16/17: HH 7.9/27.2. EGD/Colonoscopy planned for Friday. PLAN - EGD/colonoscopy Friday - Clear liquid diet today - NPO after MN tonight - Bowel prep today - Monitor HH - Transfuse as needed - Continue PPI - Supportive care - Further recommendations to follow based on results of above Patient seen and examined by Dr. Qureshi and myself and this note is written on his behalf. (Viviana Alcocer) Plan Patient was seen and examined, agree with above-noted,: EGD tomorrow, packed RBC if needed (Jean-Pierre Qureshi MD) Viviana Alcocer Feb 16, 2017 16:42 Jean-Pierre Qureshi MD Feb 16, 2017 16:57
--- NOTE | 2017-02-16 17:18 | HHI.PR ---
Subjective Remarks Patient seen today around noon. Says he is feeling all right. No further bloody stools. Denies any chest pain or shortness of breath. Denies any nausea or vomiting. Objective Vital Signs Date Time Temp Pulse Resp B/P (MAP) Pulse Ox O2 Delivery O2 Flow Rate FiO2 02/16/17 16:00 84 02/16/17 12:06 97.4 86 19 145/66 (92) 93 02/16/17 08:06 98.1 80 19 148/73 (98) 96 02/16/17 07:20 97 Nasal Cannula 3.00 02/16/17 07:00 94 Nasal Cannula 3.00 02/16/17 04:00 73 02/16/17 04:00 97.4 58 21 150/65 (93) 94 02/16/17 00:00 98.0 80 20 137/67 (90) 97 02/16/17 00:00 73 02/15/17 22:44 Nasal Cannula 3.00 02/15/17 20:00 98.2 88 20 111/55 (73) 94 02/15/17 20:00 98 02/15/17 19:48 95 Nasal Cannula 3.00 I/O 02/15/17 02/15/17 02/15/17 02/16/17 02/16/17 02/16/17 07:00 15:00 23:00 07:00 15:00 23:00 Intake Total 1120 ml 520 ml 200 ml Output Total 1160 ml 2500 ml 1200 ml Balance -40 ml -1980 ml -1000 ml Intake Oral 1120 ml 520 ml 200 ml Output Urine Total 1160 ml 2500 ml 1200 ml # Bowel Movements 0 2 0 Result Diagram: 02/16/17 0639 02/16/1739 Objective Remarks GENERAL: Patient sitting up on edge of bed. Appears comfortable.no change on exam today. SKIN: Warm and dry. HEAD: Normocephalic. EYES: No scleral icterus. No injection or drainage. NECK: Supple, trachea midline. No JVD.. CARDIOVASCULAR: Regular rate and rhythm without murmurs, gallops, or rubs. RESPIRATORY: Breath sounds equal bilaterally. No accessory muscle use. GASTROINTESTINAL: Abdomen soft, non-tender, nondistended. MUSCULOSKELETAL: No cyanosis .trace edema. BACK: Nontender without obvious deformity. No CVA tenderness. A/P Assessment and Plan /Anemia ICD Code: D64.9 - Anemia, unspecified Status: Acute Plan: his is a very pleasant 66 year old male with hx hemorrhoids, AFib on eliquis, history of iron deficiency anemia, hypertension, diabetes, emphysema, morbidly obese, who presented to the ER after being sent to ER by Dr Whitt during consult for an ablation. He was found to be anemic with hgb 6.3 on admission. The patient was then admitted to the medical unit, monitor on telemetry. Patient presented with severe microcytic anemia and a hemoglobin of 6.3, 2 units of packed blood cells were ordered in the ED for transfusion. The patient is being transfused. There is no evidence of active bleeding. Will check stool guaiac. GI consulted, for possible EGD/colonoscopy after cardiology clearance. 02/14 hemoglobin is stable at 8.3. There is no evidence of active bleeding. Cardiology has cleared the patient for GI procedures. And Nicole to monitor CBC and transfuse as needed for hemoglobin less than 7 or symptomatic anemia. 02/16. Hemoglobin stable 7.9. Plan for EGD/colonoscopy tomorrow. //Atrial fibrillation with RVR ICD Code: I48.91 - Unspecified atrial fibrillation Status: Acute Plan: The patient has been taking care by Dr. Whitt as an outpatient. The patient was referred to the hospital for ablation. Continue to hold Eliquis secondary to severe anemia. 02/14 Continue heparin SQ. Stool for Hemoccult blood has been ordered. If this is negative then I will start the patient on heparin drip awaiting for his procedure. Heart rate is rate controlled. Continue Cardizem 60 mg by mouth every 6 hours and continue to follow-up cardiology recommendations. = 02/16 Heart rate controlled. Continue Cardizem, digoxin. //Rectal bleed ICD Code: K62.5 - Hemorrhage of anus and rectum Status: Acute Plan: Likely due to hemorrhoids. No active bright red blood per rectum. The patient states that he has occasional episodes of bright red blood per rectum. There is no active bleeding noted. = Colonoscopy Friday. //MARY (acute kidney injury) ICD Code: N17.9 - Acute kidney failure, unspecified Plan: Patient presented with an elevated creatinine of 1.52. No previous labs available for comparison. Creatinine trending down to 1.45. Continue to monitor BUN/creatinine. She was started in IV fluids, however I will discontinued given that the patient will get 2 units of packed blood cells to avoid fluid overload. 02/14 patient elicits the previous history of increased creatinine. This likely CK V stage III. BUN and creatinine stable at 1.43. Continue to monitor BUN/creatinine, strict I's and O's. Off IV fluids. = 02/16. Creatinine 1.6 variable, however unknown baseline. We will repeat labs tomorrow. //HTN (hypertension) ICD Code: I10 - Essential (primary) hypertension Plan: Blood pressure seems to be stable. I will resume the patient's home losartan, hold hydrochlorothiazide. = 02/15. Continue to hold hydrochlorothiazide. Blood pressure acceptable. Continue to monitor. //Diabetes ICD Code: E11.9 - Type 2 diabetes mellitus without complications Status: Chronic Plan: Medications not entered on med rec. will place on SSI with insulin Novolog and monitor Accu-Cheks. Patient on basal bolus therapy with insulin Lantus and insulin NovoLog as prandial insulin at home. Hold for now since the patient is on a clear liquids and resume once the patient starts eating. My need to adjust the dose once these medications are restarted. -02/16. Glucose control improved. Glucose in the 190s. Continue current insulin regimen. DVT prophylaxis: Heparin subcutaneously. Discharge Planning Plan for EGD/colonoscopy tomorrow Sameer Felder MD Feb 16, 2017 17:18
[2017-02-16] MEDS: clonazePAM 1 MG TAB PO SCH (21:00)
[2017-02-16] MEDS ORDERED: INSULIN HUMAN REGULAR 1,000 UNITS/10 ML VIAL SQ PRN (23:45)
[2017-02-16] MEDS ORDERED: POVIDONE IODINE 5% (ANTISEPSIS KIT) 4 APPLICATIONS EACH NARE PRN (23:45)
[2017-02-16] MEDS ORDERED: CHLORHEXIDINE GLUCONATE 2 % 1 PACK (2 CLOTHS) TOPICAL PRN (23:45)
[2017-02-16] MEDS ORDERED: LACTATED RINGER'S 1000 ML IV PRN (23:45)
[2017-02-16] MEDS ORDERED: METOPROLOL TARTRATE 25 MG TAB PO PRN (23:45)
[2017-02-16] MEDS ORDERED: SODIUM CHLORID 0.9% 500 ML IV PRN (23:45)
[2017-02-17] VITALS (9 sets, daily range): BP systolic 146–168; BP diastolic 63–81; PULSE 74–97; RESP 18–24; TEMP 97.4–97.9; O2SAT 93–98
[2017-02-17] MEDS: INSULIN ASPART SUPPLEMENTAL SCALE SQ SCH ×4 (08:00→21:14)
[2017-02-17] MEDS: INSULIN DETEMIR 100 UNITS/ML VIAL SQ SCH ×3 (08:10→21:13)
[2017-02-17] MEDS: DOCUSATE SODIUM 50 MG/SENNA 8.6 MG TAB PO SCH ×2 (09:00→21:00)
[2017-02-17] MEDS: RESP: ALBUTEROL 2.5 MG/IPRATROPIUM 0.5 MG NEB (SCH) NEB ×3 (09:06→19:10)
[2017-02-17] MEDS: DIGOXIN 0.25 MG TAB PO SCH (09:21)
[2017-02-17] MEDS: LOSARTAN 50 MG TAB PO SCH (09:22)
[2017-02-17] MEDS: DULoxetine HCl DR 60 MG CAP PO SCH (09:22)
[2017-02-17] MEDS: FUROSEMIDE 40 MG TAB PO SCH (09:22)
[2017-02-17] MEDS: ACETAMINOPHEN 325 MG TAB PO PRN (09:23)
[2017-02-17] MEDS: PANTOPRAZOLE SODIUM 40 MG VIAL IV PUSH SCH ×2 (09:23→21:15)
[2017-02-17] MEDS: SODIUM CHLORIDE 0.9% FLUSH 10 ML FLUSH IV FLUSH SCH ×2 (09:24→21:16)
[2017-02-17] MEDS: DILTIAZEM HCL 60 MG TAB PO SCH ×4 (12:05→23:52)
[2017-02-17 12:25] LABS: AUTOMATED NEUTROPHIL # 5.8 TH/MM3 (1.8-7.7); BASOPHIL # 0.1 TH/MM3 (0-0.2); BASOPHIL % 1.1 % (0.0-2.0); EOSINOPHIL % 10.8 % (0.0-4.0); HEMATOCRIT 27.1 % (39.0-51.0); HEMO FLAGS DIFF FINAL; LYMPH % 15.6 % (9.0-44.0); LYMPHOCYTE # 1.4 TH/MM3 (1.0-4.8); MEAN CELL VOLUME 78.9 FL (80.0-100.0); MEAN CORPUSCULAR HGB CONC 30.5 % (32.0-36.0); MONO % 7.1 % (0.0-8.0); NEUT % 65.4 % (16.0-70.0); PLATELET COUNT 224 TH/MM3 (150-450); RED BLOOD COUNT 3.44 MIL/MM3 (4.50-5.90); RED CELL DISTRIBUTION WIDTH 18.9 % (11.6-17.2); WHITE BLOOD COUNT 8.9 TH/MM3 (4.0-11.0)
[2017-02-17 12:45] LABS: ANION GAP 6 MEQ/L (5-15); AST (GOT) 24 U/L (15-37); BICARBONATE 30.4 MEQ/L (21.0-32.0); BLOOD UREA NITROGEN 16 MG/DL (7-18); CHLORIDE 100 MEQ/L (98-107); GLOMERULAR FILTRATION RATE 51 ML/MIN (>89); SODIUM (NA) 136 MEQ/L (136-145)
[2017-02-17 12:48] LABS: ALKALINE PHOSPHATASE 66 U/L (45-117); ALT (GPT) 36 U/L (12-78); TOTAL BILIRUBIN ADULT 0.7 MG/DL (0.2-1.0)
[2017-02-17] MEDS ORDERED: PROPOFOL 200 MG/20 ML AMP ONE (14:44)
[2017-02-17] MEDS ORDERED: DO NOT ADM ANY ANTICOAGULANT DRUGS PRN (14:55)
--- NOTE | 2017-02-17 15:02 | HHI.PR ---
Subjective Remarks patient seen this morning around 9 AM. Says he is feeling all right. Denies any chest pain or shortness of breath. Denies any bloody bowel movements. Objective Vital Signs Date Time Temp Pulse Resp B/P (MAP) Pulse Ox O2 Delivery O2 Flow Rate FiO2 02/17/17 12:00 97.8 94 19 146/63 (90) 93 02/17/17 09:06 96 Nasal Cannula 2.00 02/17/17 08:00 78 02/17/17 08:00 97.5 84 19 158/67 (97) 95 02/17/17 07:59 Nasal Cannula 2.00 02/17/17 04:00 90 02/17/17 04:00 97.4 90 24 168/81 (110) 93 02/17/17 00:00 97.9 97 20 163/72 (102) 94 02/17/17 00:00 86 02/16/17 20:00 97.4 85 21 164/69 (100) 93 02/16/17 20:00 79 02/16/17 17:37 98 Nasal Cannula 2.00 02/16/17 16:06 97.8 83 18 144/63 (90) 94 02/16/17 16:00 84 I/O 02/16/17 02/16/17 02/16/17 02/17/17 02/17/17 02/17/17 07:00 15:00 23:00 07:00 15:00 23:00 Intake Total 200 ml 820 ml 0 ml 800 ml Output Total 1200 ml 2685 ml 1400 ml Balance -1000 ml -1865 ml -1400 ml 800 ml Intake Oral 200 ml 820 ml 0 ml Other 800 ml Output Urine Total 1200 ml 2685 ml 1400 ml # Bowel Movements 0 2 6 Result Diagram: 02/17/17 1150 02/17/17 1150 Objective Remarks GENERAL: Patient sitting up on edge of bed. Appears comfortable.again, no change on exam today. SKIN: Warm and dry. HEAD: Normocephalic. EYES: No scleral icterus. No injection or drainage. NECK: Supple, trachea midline. No JVD.. CARDIOVASCULAR: Regular rate and rhythm without murmurs, gallops, or rubs. RESPIRATORY: Breath sounds equal bilaterally. No accessory muscle use. GASTROINTESTINAL: Abdomen soft, non-tender, nondistended. MUSCULOSKELETAL: No cyanosis .trace edema. BACK: Nontender without obvious deformity. No CVA tenderness. A/P Assessment and Plan /Anemia ICD Code: D64.9 - Anemia, unspecified Status: Acute Plan: his is a very pleasant 66 year old male with hx hemorrhoids, AFib on eliquis, history of iron deficiency anemia, hypertension, diabetes, emphysema, morbidly obese, who presented to the ER after being sent to ER by Dr Whitt during consult for an ablation. He was found to be anemic with hgb 6.3 on admission. The patient was then admitted to the medical unit, monitor on telemetry. Patient presented with severe microcytic anemia and a hemoglobin of 6.3, 2 units of packed blood cells were ordered in the ED for transfusion. The patient is being transfused. There is no evidence of active bleeding. Will check stool guaiac. GI consulted, for possible EGD/colonoscopy after cardiology clearance. 02/14 hemoglobin is stable at 8.3. There is no evidence of active bleeding. Cardiology has cleared the patient for GI procedures. And Nicole to monitor CBC and transfuse as needed for hemoglobin less than 7 or symptomatic anemia. 02/16. Hemoglobin stable 7.9. Plan for EGD/colonoscopy tomorrow. = 02/17. Colonoscopy today. Follow-up results. //Atrial fibrillation with RVR ICD Code: I48.91 - Unspecified atrial fibrillation Status: Acute Plan: The patient has been taking care by Dr. Whitt as an outpatient. The patient was referred to the hospital for ablation. Continue to hold Eliquis secondary to severe anemia. 02/14 Continue heparin SQ. Stool for Hemoccult blood has been ordered. If this is negative then I will start the patient on heparin drip awaiting for his procedure. Heart rate is rate controlled. Continue Cardizem 60 mg by mouth every 6 hours and continue to follow-up cardiology recommendations. = 02/16 Heart rate controlled. Continue Cardizem, digoxin. = 02/17 Cardiology following. Cardiology wants to adjust medications after colonoscopy. //Rectal bleed ICD Code: K62.5 - Hemorrhage of anus and rectum Status: Acute Plan: Likely due to hemorrhoids. No active bright red blood per rectum. The patient states that he has occasional episodes of bright red blood per rectum. There is no active bleeding noted. = Colonoscopy today. //MARY (acute kidney injury) ICD Code: N17.9 - Acute kidney failure, unspecified Plan: Patient presented with an elevated creatinine of 1.52. No previous labs available for comparison. Creatinine trending down to 1.45. Continue to monitor BUN/creatinine. She was started in IV fluids, however I will discontinued given that the patient will get 2 units of packed blood cells to avoid fluid overload. 02/14 patient elicits the previous history of increased creatinine. This likely CK V stage III. BUN and creatinine stable at 1.43. Continue to monitor BUN/creatinine, strict I's and O's. Off IV fluids. = 02/17. Creatinine 1.4 variable, however unknown baseline. Table. //HTN (hypertension) ICD Code: I10 - Essential (primary) hypertension Plan: Blood pressure seems to be stable. I will resume the patient's home losartan, hold hydrochlorothiazide. = 02/15. Continue to hold hydrochlorothiazide. Blood pressure acceptable. Continue to monitor. //Diabetes ICD Code: E11.9 - Type 2 diabetes mellitus without complications Status: Chronic Plan: Medications not entered on med rec. will place on SSI with insulin Novolog and monitor Accu-Cheks. Patient on basal bolus therapy with insulin Lantus and insulin NovoLog as prandial insulin at home. Hold for now since the patient is on a clear liquids and resume once the patient starts eating. My need to adjust the dose once these medications are restarted. -02/16. Glucose control improved. Glucose in the 190s. Continue current insulin regimen. DVT prophylaxis: Heparin subcutaneously. Discharge Planning Plan for EGD/colonoscopy today. Will need cardiology clearance. Sameer Felder MD Feb 17, 2017 15:02
--- NOTE | 2017-02-17 15:06 | PD.PROCEDR ---
GI Procedure REFERRING PHYSICIAN Dr. Felder PROCEDURE PERFORMED EGD with cautery followed by colonoscopy with snare polypectomy and biopsy and polyp ablation INDICATION FOR PROCEDURE Anemia, rectal bleeding, history of atrial fibrillation on anticoagulation PROCEDURE: The procedure, risks and benefits were discussed with Mr. Macdonald and informed consent was obtained. Anesthesia sedated him with Diprivan. He was placed in the left lateral decubitus position. EGD: The Pentax videoscope was introduced through the oropharynx and advanced to the second portion of the duodenum under direct visualization. Retroflexion was performed in the stomach. FINDINGS: The esophagus this was normal The stomach this was normal The duodenum there was a bleeding AVM this was cauterized and no further bleeding was noted following the cautery otherwise normal Colonoscopy: The Pentax videoscope was introduced through the rectum and advanced to cecum where the ileocecal valve and appendiceal orifice were identified. Retroflexion was performed in the rectum. Colonic prep was fair FINDINGS: Colonic withdrawal time greater than 6 minutes the difficulty was significantly due to spasms we used a glucose drawn and patient still had spasms and so not all aspects were seen adequately The patient was noted to have several polyps most were small to medium in size and sessile the 2 in the ascending colon one removed by biopsy forceps the 3 in the transverse colon one was fulgurated the other 2 were removed by biopsy forceps and one in the sigmoid was removed using hot snare technique colonic examination otherwise unremarkable cells rectal examination and retroflexion ESTIMATED BLOOD LOSS: Minimal SPECIMENS REMOVED: Cold biopsies COMPLICATIONS: None IMPRESSION: Bleeding Duodenal AVMs Colon polyps PLAN: Await biopsies Monitor labs and transfuse as needed May resume anticoagulation in about 3-4 days Patient will require outpatient capsule endoscopy Follow-up in clinic in 3-4 weeks with a CBC Repeat colonoscopy in 1 year Juan Forrest MD Feb 17, 2017 15:06
[2017-02-17] MEDS: clonazePAM 1 MG TAB PO SCH (21:15)
[2017-02-18] VITALS (7 sets, daily range): BP systolic 132–164; BP diastolic 56–77; PULSE 76–99; RESP 20; TEMP 97.2–98; O2SAT 95–97
[2017-02-18 05:08] LABS: HEMATOCRIT 25.9 % (39.0-51.0); MEAN CELL VOLUME 78.6 FL (80.0-100.0); MEAN CORPUSCULAR HEMOGLOBIN 24.4 PG (27.0-34.0); PLATELET COUNT 206 TH/MM3 (150-450); RED BLOOD COUNT 3.29 MIL/MM3 (4.50-5.90); RED CELL DISTRIBUTION WIDTH 18.6 % (11.6-17.2); REVIEW FLAG FINAL; WHITE BLOOD COUNT 8.9 TH/MM3 (4.0-11.0)
[2017-02-18] MEDS: DILTIAZEM HCL 60 MG TAB PO SCH ×2 (06:13→12:10)
[2017-02-18] MEDS: INSULIN DETEMIR 100 UNITS/ML VIAL SQ SCH (09:00)
[2017-02-18] MEDS: DIGOXIN 0.25 MG TAB PO SCH (09:04)
[2017-02-18] MEDS: LOSARTAN 50 MG TAB PO SCH (09:05)
[2017-02-18] MEDS: FUROSEMIDE 40 MG TAB PO SCH (09:05)
[2017-02-18] MEDS: DOCUSATE SODIUM 50 MG/SENNA 8.6 MG TAB PO SCH (09:05)
[2017-02-18] MEDS: DULoxetine HCl DR 60 MG CAP PO SCH (09:05)
[2017-02-18] MEDS: PANTOPRAZOLE SODIUM 40 MG VIAL IV PUSH SCH (09:06)
[2017-02-18] MEDS: SODIUM CHLORIDE 0.9% FLUSH 10 ML FLUSH IV FLUSH SCH (09:09)
[2017-02-18] MEDS: INSULIN ASPART SUPPLEMENTAL SCALE SQ SCH ×3 (09:10→17:36)
[2017-02-18] MEDS ORDERED: ACETAMINOPHEN 325 MG TAB PO PRN (10:00)
--- NOTE | 2017-02-18 11:05 | HHI.PR ---
Subjective Remarks She says he's feeling all right. Denies any chest pain or shortness of breath. Objective Vital Signs Date Time Temp Pulse Resp B/P (MAP) Pulse Ox O2 Delivery O2 Flow Rate FiO2 02/18/17 08:30 Nasal Cannula 2.00 02/18/17 08:00 98.0 76 20 132/56 (81) 96 02/18/17 04:00 97.9 95 20 152/71 (98) 95 02/18/17 03:56 77 02/18/17 00:07 77 02/18/17 00:00 97.2 99 20 164/77 (106) 95 02/17/17 20:30 Nasal Cannula 2.00 02/17/17 20:00 97.4 90 20 155/72 (99) 98 02/17/17 19:58 74 02/17/17 19:12 98 Nasal Cannula 3.00 02/17/17 16:00 97.4 76 18 150/69 (96) 96 02/17/17 14:58 97.0 90 20 114/65 (81) 92 02/17/17 12:00 97.8 94 19 146/63 (90) 93 I/O 02/17/17 02/17/17 02/17/17 02/18/17 02/18/17 02/18/17 07:00 15:00 23:00 07:00 15:00 23:00 Intake Total 0 ml 800 ml 1075 ml Output Total 1400 ml 1250 ml Balance -1400 ml 800 ml -175 ml Intake Oral 0 ml 1075 ml Other 800 ml Output Urine Total 1400 ml 1250 ml # Voids 2 # Bowel Movements 6 Result Diagram: 02/18/17 0357 02/17/17 1150 Objective Remarks GENERAL: Patient sitting up on edge of bed. Appears comfortable. Again no change on exam today. SKIN: Warm and dry. HEAD: Normocephalic. EYES: No scleral icterus. No injection or drainage. NECK: Supple, trachea midline. No JVD.. CARDIOVASCULAR: Regular rate and rhythm without murmurs, gallops, or rubs. RESPIRATORY: Breath sounds equal bilaterally. No accessory muscle use. GASTROINTESTINAL: Abdomen soft, non-tender, nondistended. MUSCULOSKELETAL: No cyanosis .trace edema. BACK: Nontender without obvious deformity. No CVA tenderness. A/P Assessment and Plan /Anemia ICD Code: D64.9 - Anemia, unspecified Status: Acute Plan: his is a very pleasant 66 year old male with hx hemorrhoids, AFib on eliquis, history of iron deficiency anemia, hypertension, diabetes, emphysema, morbidly obese, who presented to the ER after being sent to ER by Dr Whitt during consult for an ablation. He was found to be anemic with hgb 6.3 on admission. The patient was then admitted to the medical unit, monitor on telemetry. Patient presented with severe microcytic anemia and a hemoglobin of 6.3, 2 units of packed blood cells were ordered in the ED for transfusion. The patient is being transfused. There is no evidence of active bleeding. Will check stool guaiac. GI consulted, for possible EGD/colonoscopy after cardiology clearance. 02/14 hemoglobin is stable at 8.3. There is no evidence of active bleeding. Cardiology has cleared the patient for GI procedures. And Nicole to monitor CBC and transfuse as needed for hemoglobin less than 7 or symptomatic anemia. 02/16. Hemoglobin stable 7.9. Plan for EGD/colonoscopy tomorrow. = 02/17. Colonoscopy today. Follow-up results. = 02/18. hg stable 8.0. EGD with 1 more AVMs which were cauterized. Follow- up biopsy results. I discussed the case with order processor, he is asking if patient can be anticoagulation. defer to gastroenterology //Atrial fibrillation with RVR ICD Code: I48.91 - Unspecified atrial fibrillation Status: Acute Plan: The patient has been taking care by Dr. Whitt as an outpatient. The patient was referred to the hospital for ablation. Continue to hold Eliquis secondary to severe anemia. 02/14 Continue heparin SQ. Stool for Hemoccult blood has been ordered. If this is negative then I will start the patient on heparin drip awaiting for his procedure. Heart rate is rate controlled. Continue Cardizem 60 mg by mouth every 6 hours and continue to follow-up cardiology recommendations. = 02/16 Heart rate controlled. Continue Cardizem, digoxin. = 02/17 Cardiology following. Cardiology wants to adjust medications after colonoscopy. = 02/18. Discussed With cardiology. Awaiting GI clearance for anticoagulation //Rectal bleed ICD Code: K62.5 - Hemorrhage of anus and rectum Status: Acute Plan: Likely due to hemorrhoids. No active bright red blood per rectum. The patient states that he has occasional episodes of bright red blood per rectum. There is no active bleeding noted. = Colonoscopy today. //MARY (acute kidney injury) ICD Code: N17.9 - Acute kidney failure, unspecified Plan: Patient presented with an elevated creatinine of 1.52. No previous labs available for comparison. Creatinine trending down to 1.45. Continue to monitor BUN/creatinine. She was started in IV fluids, however I will discontinued given that the patient will get 2 units of packed blood cells to avoid fluid overload. 02/14 patient elicits the previous history of increased creatinine. This likely CK V stage III. BUN and creatinine stable at 1.43. Continue to monitor BUN/creatinine, strict I's and O's. Off IV fluids. = 02/17. Creatinine 1.4 variable, however unknown baseline. Table. //HTN (hypertension) ICD Code: I10 - Essential (primary) hypertension Plan: Blood pressure seems to be stable. I will resume the patient's home losartan, hold hydrochlorothiazide. = 02/15. Continue to hold hydrochlorothiazide. Blood pressure acceptable. Continue to monitor. //Diabetes ICD Code: E11.9 - Type 2 diabetes mellitus without complications Status: Chronic Plan: Medications not entered on med rec. will place on SSI with insulin Novolog and monitor Accu-Cheks. Patient on basal bolus therapy with insulin Lantus and insulin NovoLog as prandial insulin at home. Hold for now since the patient is on a clear liquids and resume once the patient starts eating. My need to adjust the dose once these medications are restarted. -02/16. Glucose control improved. Glucose in the 190s. Continue current insulin regimen. DVT prophylaxis: Heparin subcutaneously. Discharge Planning Patient may need intervention by cardiology. Awaiting GI clearance for anticoagulation. Sameer Felder MD Feb 18, 2017 11:05
[2017-02-18] MEDS ORDERED: MAGNESIUM CITRATE SOLN 300 ML BTL PO SCH ×2 (12:00→18:00)
[2017-02-18 14:47] LABS: TRANSFERRIN IRON PROFILE 358 MG/DL (200-360)
[2017-02-18 14:49] LABS: FERRITIN 11 NG/ML (26-388)
--- NOTE | 2017-02-18 15:44 | HHI.GIFU ---
Subjective Remarks Pt sitting on edge of bed. no new complaints. (Tena Valenzuela) Objective Vitals I&O Vital Signs Date Time Temp Pulse Resp B/P (MAP) Pulse Ox O2 Delivery O2 Flow Rate FiO2 02/18/17 12:00 97.5 88 20 140/75 (96) 97 02/18/17 11:42 3.00 02/18/17 08:30 Nasal Cannula 2.00 02/18/17 08:00 98.0 76 20 132/56 (81) 96 02/18/17 04:00 97.9 95 20 152/71 (98) 95 02/18/17 03:56 77 02/18/17 00:07 77 02/18/17 00:00 97.2 99 20 164/77 (106) 95 02/17/17 20:30 Nasal Cannula 2.00 02/17/17 20:00 97.4 90 20 155/72 (99) 98 02/17/17 19:58 74 02/17/17 19:12 98 Nasal Cannula 3.00 02/17/17 16:00 97.4 76 18 150/69 (96) 96 I/O 02/17/17 02/17/17 02/17/17 02/18/17 02/18/17 02/18/17 07:00 15:00 23:00 07:00 15:00 23:00 Intake Total 0 ml 800 ml 1075 ml 1000 ml Output Total 1400 ml 1250 ml 950 ml Balance -1400 ml 800 ml -175 ml 50 ml Intake Oral 0 ml 1075 ml 1000 ml Other 800 ml Output Urine Total 1400 ml 1250 ml 950 ml # Voids 2 2 # Bowel Movements 6 1 Laboratory Laboratory Tests Test 02/18/17 03:57 02/18/17 14:10 White Blood Count 8.9 Red Blood Count 3.29 Hemoglobin 8.0 Hematocrit 25.9 Mean Corpuscular Volume 78.6 Mean Corpuscular Hemoglobin 24.4 Mean Corpuscular Hemoglobin Concent 31.0 Red Cell Distribution Width 18.6 Platelet Count 206 Mean Platelet Volume 8.1 Iron Level 20 Total Iron Binding Capacity 501 Percent Iron Saturation 4.0 Ferritin 11 Date/Time Source Procedure Growth Status 02/14/17 16:04 Stool Stool Stool Occult Blood (VIDHYA) - Final HEMOCCULT NEGATIVE Complete Imaging Last Impressions Chest X-Ray 02/12/17 0000 Signed Impressions: Service Date/Time: Sunday, February 12, 2017 14:25 - CONCLUSION: No acute disease. Isael Blake MD Physical Exam HEENT: Normocephalic; atraumatic CHEST: Diminished CARDIAC: Irregularly irregular ABDOMEN: Soft, obese, nontender, nondistended; bowel sounds active x 4 SKIN: Normal; no rash; no jaundice. WOOL HAT FINISHER: No focal deficits; alert and oriented times three. (Tena Valenzuela) Assessment and Plan Plan ASSESSMENT - Anemia, hgb 6.3 on admission. was on eliquis for AF. Cleared by cardiology for GI w/u. no heparin per cardiology. 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, colon polyps HH relatively stable PLAN - SBFT - capsule endoscopy as outpatient - f/u with GI in3-4 weeks - check CBC 3-4 weeks before follow up appt - heart healthy diet - monitor labs - transfuse as needed - repeat colonoscopy 1 year - ok to resume anticoag 2-3 d - Continue PPI - Supportive care This pt see by myself and Dr Forrest and this note is written on his behalf (Tena Valenzuela) Physician Comments Patient seen and examined Agree with above Continue with current supportive care Monitor labs Appears to be stable clinically and hemodynamically and his hemoglobin is stable so at this point there is no active bleeding Patient will need to follow up with GI post discharge he will need outpatient capsule endoscopy Not much to add though at this point in time from a GI perspective therefore we will sign off Please reconsult as needed (Juan Forrest MD) Tena Valenzuela Feb 18, 2017 15:44 Juan Forrest MD Feb 18, 2017 17:07
--- NOTE | 2017-02-18 17:23 | HHI.PR ---
Subjective Remarks Feeling better Objective Vital Signs Date Time Temp Pulse Resp B/P (MAP) Pulse Ox O2 Delivery O2 Flow Rate FiO2 02/18/17 16:00 97.5 86 20 156/71 (99) 96 02/18/17 12:00 97.5 88 20 140/75 (96) 97 02/18/17 11:42 3.00 02/18/17 08:30 Nasal Cannula 2.00 02/18/17 08:00 98.0 76 20 132/56 (81) 96 02/18/17 04:00 97.9 95 20 152/71 (98) 95 02/18/17 03:56 77 02/18/17 00:07 77 02/18/17 00:00 97.2 99 20 164/77 (106) 95 02/17/17 20:30 Nasal Cannula 2.00 02/17/17 20:00 97.4 90 20 155/72 (99) 98 02/17/17 19:58 74 02/17/17 19:12 98 Nasal Cannula 3.00 I/O 02/17/17 02/17/17 02/17/17 02/18/17 02/18/17 02/18/17 07:00 15:00 23:00 07:00 15:00 23:00 Intake Total 0 ml 800 ml 1075 ml 1000 ml Output Total 1400 ml 1250 ml 950 ml Balance -1400 ml 800 ml -175 ml 50 ml Intake Oral 0 ml 1075 ml 1000 ml Other 800 ml Output Urine Total 1400 ml 1250 ml 950 ml # Voids 2 2 2 # Bowel Movements 6 1 Result Diagram: 02/18/17 0357 02/17/17 1150 Imaging Alert, fully oriented, no SOB Lungs: ventilated Heart: S1, S2 irregular, no gallop abdomen: soft, no mass, obese Ext: no edema Last Impressions Chest X-Ray 02/12/17 0000 Signed Impressions: Service Date/Time: Sunday, February 12, 2017 14:25 - CONCLUSION: No acute disease. Isael Blake MD Current Medications Medications (Trade) Dose Ordered Sig/Vania Route Start Time Stop Time Status Last Admin (NS Flush) 2 ml UNSCH PRN IV FLUSH 02/12/17 15:45 (NS Flush) 2 ml BID IV FLUSH 02/12/17 21:00 02/18/17 09:09 (Zofran Inj) 4 mg Q6H PRN IVP 02/12/17 15:45 (Restoril) 15 mg HS PRN PO 02/12/17 15:45 02/12/17 23:22 (Narcan Inj) 0.4 mg UNSCH PRN IV PUSH 02/12/17 15:45 (Laquita-Colace) 1 tab BID PO 02/12/17 21:00 02/18/17 09:05 (Milk Of Magnesia Liq) 30 ml Q12H PRN PO 02/12/17 15:45 (Senokot) 17.2 mg Q12H PRN PO 02/12/17 15:45 (Dulcolax Supp) 10 mg DAILY PRN RECTAL 02/12/17 15:45 (Lactulose Liq) 30 ml DAILY PRN PO 02/12/17 15:45 (Protonix Inj) 40 mg Q12HR IV PUSH 02/13/17 13:00 02/18/17 09:06 (Mag-Al Plus Susp Liq) 30 ml PCHS PRN PO 02/13/17 12:00 02/14/17 17:28 (D50w (Vial) Inj) 50 ml UNSCH PRN IV PUSH 02/13/17 17:30 (Glucagon Inj) 1 mg UNSCH PRN OTHER 02/13/17 17:30 (NovoLOG SUPPLEMENTAL SCALE) 1 ACHS SLIDING SCALE SQ 02/13/17 21:00 02/18/17 12:11 (Cardizem) 60 mg Q6HR PO 02/13/17 19:30 02/18/17 12:10 (Cymbalta Dr) 60 mg DAILY PO 02/14/17 15:00 02/18/17 09:05 (Lasix) 40 mg DAILY PO 02/14/17 15:00 02/18/17 09:05 (Cozaar) 100 mg DAILY PO 02/15/17 09:00 02/18/17 09:05 (Lanoxin) 0.25 mg DAILY PO 02/15/17 09:00 02/18/17 09:04 (Levemir Inj) 5 units Q12HR SQ 02/15/17 21:00 02/18/17 09:00 Lactated Ringer's 1,000 ml @ 30 mls/hr Q24H PRN IV 02/16/17 23:45 02/19/17 23:44 02/17/17 13:13 Sodium Chloride 500 ml @ 30 mls/hr [id number] PRN IV 02/16/17 23:45 02/19/17 23:44 (Lopressor) 25 mg VALVE ASSEMBLER PRN PO 02/16/17 23:45 02/19/17 23:44 (Betadine 5% Antisepsis Kit) 1 applic VALVE ASSEMBLER PRN EACH NARE 02/16/17 23:45 02/19/17 23:44 (Chlorhexidine 2% Cloth) 3 pack VALVE ASSEMBLER PRN TOPICAL 02/16/17 23:45 02/19/17 23:44 (NovoLIN R INJ) See Protocol Table ... VALVE ASSEMBLER PRN SQ 02/16/17 23:45 02/19/17 23:44 (KlonoPIN) 1 mg DAILY PRN PO 02/19/17 09:00 (Tylenol) 650 mg Q4H PRN PO 02/18/17 10:00 Iron Sucrose 200 mg/Sodium Chloride 110 ml @ 110 mls/hr DAILY IV 02/19/17 09:00 02/21/17 09:59 Assessment and Plan Problem List: (1) Atrial fibrillation with RVR ICD Codes: I48.91 - Unspecified atrial fibrillation Status: Acute Plan: In atrial fibrillation. HR control No SOB Case discussed with patient and Dr Felder. GI recommend initiate anticoagulation in 2-3 days Patient can be DH if someone going to initiate anticoagulation in 3 days I do recommend eliquis 5mg bid (creat 1.39) i will see Mr Clark in 2-3 weeks. case discussed with patient. (2) HTN (hypertension) ICD Codes: I10 - Essential (primary) hypertension Plan: SBP 156 cardizem short acting DC Cardizem CD 360 daily initiated BP will need to be monitored Follow ups PCP. Problem Qualifiers (1) HTN (hypertension): Qualified Codes: I10 - Essential (primary) hypertension Lefty Whitt MD Feb 18, 2017 17:23
[2017-02-18] MEDS ORDERED: FERR325T18 PO (17:43)
[2017-02-18] MEDS ORDERED: APIX5TAB PO (17:43)
[2017-02-18] MEDS ORDERED: DOCU8.6T PO (17:43)
[2017-02-18] MEDS ORDERED: DIGO0.12 PO (17:43)
[2017-02-18] MEDS ORDERED: DILT360C12 PO (17:43)
--- NOTE | 2017-02-18 17:57 | HHI.DS ---
Discharge Summary Admission Date Feb 12, 2017 at 15:42 Discharge Date: Feb 18, 2017 Admitting Diagnosis anemia, afib with rvr (1) Anemia ICD Code: D64.9 - Anemia, unspecified Status: Acute (2) Atrial fibrillation with RVR ICD Code: I48.91 - Unspecified atrial fibrillation Status: Acute (3) Rectal bleed ICD Code: K62.5 - Hemorrhage of anus and rectum Status: Acute (4) MARY (acute kidney injury) ICD Code: N17.9 - Acute kidney failure, unspecified (5) HTN (hypertension) ICD Code: I10 - Essential (primary) hypertension (6) Diabetes ICD Code: E11.9 - Type 2 diabetes mellitus without complications Status: Chronic Procedures EGD, colonoscopy. Please see report. Brief History - From Admission This is a very pleasant 66 year old male with hx hemorrhoids, AFib on eliquis, history of iron deficiency anemia, hypertension, diabetes, emphysema, morbidly obese, who presented to the ER after being sent to ER by Dr Whitt during consult for an ablation. He was found to be anemic with hgb 6.3 on admission. Denies jasbir rectal bleeding but did see scant blood on toilet paper the other day after BM. Denies black tarry stool, abd pain, n/v, hematuria. He thinks he may have been told he's anemic b/c he has been getting iron shots from "one of his doctors". He does see a dish stacker. Denies chest pain, palpitations. Never colonoscopy or upper endoscopy. He takes eliquis, had this morning. Patient says he felt very weak and his short of breath however denies any chest pain, lightheadedness, no nausea or vomiting. Denies having palpitations. No hematuria. No other complaints at this time. CBC/BMP: 02/18/17 0357 02/17/17 1150 Significant Findings Laboratory Tests Test 02/16/17 06:39 02/17/17 11:50 02/18/17 03:57 02/18/17 14:10 Red Blood Count 3.39 MIL/MM3 (4.50-5.90) 3.44 MIL/MM3 (4.50-5.90) 3.29 MIL/MM3 (4.50-5.90) Hemoglobin 7.9 GM/DL (13.0-17.0) 8.3 GM/DL (13.0-17.0) 8.0 GM/DL (13.0-17.0) Hematocrit 27.2 % (39.0-51.0) 27.1 % (39.0-51.0) 25.9 % (39.0-51.0) Mean Corpuscular Hemoglobin 23.2 PG (27.0-34.0) 24.0 PG (27.0-34.0) 24.4 PG (27.0-34.0) Mean Corpuscular Hemoglobin Concent 29.0 % (32.0-36.0) 30.5 % (32.0-36.0) 31.0 % (32.0-36.0) Red Cell Distribution Width 18.5 % (11.6-17.2) 18.9 % (11.6-17.2) 18.6 % (11.6-17.2) Monocytes (%) (Auto) 8.5 % (0.0-8.0) Eosinophils (%) (Auto) 11.3 % (0.0-4.0) 10.8 % (0.0-4.0) Eosinophils # (Auto) 1.0 TH/MM3 (0-0.4) 1.0 TH/MM3 (0-0.4) Blood Urea Nitrogen 21 MG/DL (7-18) Creatinine 1.65 MG/DL (0.60-1.30) 1.39 MG/DL (0.60-1.30) Random Glucose 175 MG/DL (74-106) 158 MG/DL (74-106) Albumin 3.3 GM/DL (3.4-5.0) Calcium Level 8.3 MG/DL (8.5-10.1) Phosphorus Level 5.1 MG/DL (2.5-4.9) Sodium Level 134 MEQ/L (136-145) Estimat Glomerular Filtration Rate 42 ML/MIN (>89) 51 ML/MIN (>89) Mean Corpuscular Volume 78.9 FL (80.0-100.0) 78.6 FL (80.0-100.0) Iron Level 20 MCG/DL (65-175) Total Iron Binding Capacity 501 MCG/DL (250-450) Percent Iron Saturation 4.0 % (20-50) Ferritin 11 NG/ML (26-388) Imaging Last Impressions Chest X-Ray 02/12/17 0000 Signed Impressions: Service Date/Time: Sunday, February 12, 2017 14:25 - CONCLUSION: No acute disease. Isael Blake MD PE at Discharge GENERAL: This is a well-nourished, well-developed patient, in no apparent distress. Sitting at the edge of the bed. SKIN: No rashes, ecchymoses or lesions. Cool and dry. Pale skin. HEAD: Atraumatic. Normocephalic. No temporal or scalp tenderness. EYES: Pupils equal round and reactive. Extraocular motions intact. No scleral icterus. No injection or drainage. ENT: Nose without bleeding, purulent drainage or septal hematoma. Throat without erythema, tonsillar hypertrophy or exudate. Uvula midline. Airway patent. NECK: Trachea midline. No JVD or lymphadenopathy. Supple, nontender, no meningeal signs. CARDIOVASCULAR: Regular rate and rhythm without murmurs, gallops, or rubs. RESPIRATORY: Clear to auscultation. Breath sounds equal bilaterally. No wheezes , rales, or rhonchi. GASTROINTESTINAL: Abdomen soft, non-tender, nondistended. No hepato-splenomegaly , or palpable masses. No guarding. MUSCULOSKELETAL: Extremities without clubbing, cyanosis, +1 edema in lower extremities. No joint tenderness, effusion, or edema noted. No calf tenderness. Negative Homans sign bilaterally. NEUROLOGICAL: Awake and alert. Cranial nerves II through XII intact. Motor and sensory grossly within normal limits. Five out of 5 muscle strength in all muscle groups. Normal Hospital Course /Anemia ICD Code: D64.9 - Anemia, unspecified Status: Acute Plan: his is a very pleasant 66 year old male with hx hemorrhoids, AFib on eliquis, history of iron deficiency anemia, hypertension, diabetes, emphysema, morbidly obese, who presented to the ER after being sent to ER by Dr Whitt during consult for an ablation. He was found to be anemic with hgb 6.3 on admission. The patient was then admitted to the medical unit, monitor on telemetry. Patient presented with severe microcytic anemia and a hemoglobin of 6.3, 2 units of packed blood cells were ordered in the ED for transfusion. The patient is being transfused. There is no evidence of active bleeding. Will check stool guaiac. GI consulted, for possible EGD/colonoscopy after cardiology clearance. 02/14 hemoglobin is stable at 8.3. There is no evidence of active bleeding. Cardiology has cleared the patient for GI procedures. And Nicole to monitor CBC and transfuse as needed for hemoglobin less than 7 or symptomatic anemia. 02/16. Hemoglobin stable 7.9. Plan for EGD/colonoscopy tomorrow. = 02/17. Colonoscopy today. Follow-up results. = 02/18. hg stable 8.0. EGD with 1 more AVMs which were cauterized. Follow- up biopsy results. I discussed the case with driver, he is asking if patient can be anticoagulation. defer to gastroenterology //Atrial fibrillation with RVR ICD Code: I48.91 - Unspecified atrial fibrillation Status: Acute Plan: The patient has been taking care by Dr. Whitt as an outpatient. The patient was referred to the hospital for ablation. Continue to hold Eliquis secondary to severe anemia. 02/14 Continue heparin SQ. Stool for Hemoccult blood has been ordered. If this is negative then I will start the patient on heparin drip awaiting for his procedure. Heart rate is rate controlled. Continue Cardizem 60 mg by mouth every 6 hours and continue to follow-up cardiology recommendations. = 02/16 Heart rate controlled. Continue Cardizem, digoxin. = 02/17 Cardiology following. Cardiology wants to adjust medications after colonoscopy. = 02/18. Discussed With cardiology. Awaiting GI clearance for anticoagulation //Rectal bleed ICD Code: K62.5 - Hemorrhage of anus and rectum Status: Acute Plan: Likely due to hemorrhoids. No active bright red blood per rectum. The patient states that he has occasional episodes of bright red blood per rectum. There is no active bleeding noted. = Colonoscopy today. //MARY (acute kidney injury) ICD Code: N17.9 - Acute kidney failure, unspecified Plan: Patient presented with an elevated creatinine of 1.52. No previous labs available for comparison. Creatinine trending down to 1.45. Continue to monitor BUN/creatinine. She was started in IV fluids, however I will discontinued given that the patient will get 2 units of packed blood cells to avoid fluid overload. 02/14 patient elicits the previous history of increased creatinine. This likely CK V stage III. BUN and creatinine stable at 1.43. Continue to monitor BUN/creatinine, strict I's and O's. Off IV fluids. = 02/17. Creatinine 1.4 variable, however unknown baseline. Table. //HTN (hypertension) ICD Code: I10 - Essential (primary) hypertension Plan: Blood pressure seems to be stable. I will resume the patient's home losartan, hold hydrochlorothiazide. = 02/15. Continue to hold hydrochlorothiazide. Blood pressure acceptable. Continue to monitor. //Diabetes ICD Code: E11.9 - Type 2 diabetes mellitus without complications Status: Chronic Plan: Medications not entered on med rec. will place on SSI with insulin Novolog and monitor Accu-Cheks. Patient on basal bolus therapy with insulin Lantus and insulin NovoLog as prandial insulin at home. Hold for now since the patient is on a clear liquids and resume once the patient starts eating. My need to adjust the dose once these medications are restarted. -02/16. Glucose control improved. Glucose in the 190s. Continue current insulin regimen. DVT prophylaxis: Heparin subcutaneously. Discharge Planning Patient may need intervention by cardiology. Awaiting GI clearance for anticoagulation. Pt Condition on Discharge: Good Discharge Disposition: Discharge Home Discharge Time: > 30 minutes Discharge Instructions DIET: Follow Instructions for: Diabetic Diet Activities you can perform: Regular-No Restrictions Follow up Referrals: Cardiology - 2 Weeks with Lefty Whitt MD Gastroenterology - 1 Week with Dwight Luz MD PCP Follow-up - 2-3 Days with Chas Ceja MD New Orders: DIGOXIN - 2-3 Days New Medications: Digoxin (Digoxin) 0.125 Mg Tab 0.125 MG PO DAILY for Regulate Heart Beat, #30 TAB 0 Refills Diltiazem CD 24 HR (Diltiazem CD 24 HR) 360 Mg Capcr 360 MG PO DAILY for heart, #30 CAP 0 Refills Ferrous Sulfate (Ferrous Sulfate) 325 Mg (65 Mg Iron) Tablet 325 MG PO TIDPC for Nutritional Supplement, #90 TAB 0 Refills Sennosides-Docusate Sodium (Docusate Sodium-Senna) 8.6-50 Mg Tab 1 TAB PO DAILY for Prevent Constipation, #30 TAB 0 Refills Changed Medications: Apixaban (Eliquis) 5 Mg Tab 5 MG PO BID for Blood Clot Prevention, #60 TAB 0 Refills (Medication details modified) start on wednesday 02/21. do not take this any sooner than friday Continued Medications: Clonazepam (Clonazepam) 1 Mg Tab 1 MG PO HS, #60 TAB [address] (Cymbalta DR) 60 Mg Capdr 60 MG PO DAILY, #30 CAP 0 Refills Furosemide (Lasix) 40 Mg Tab 40 MG PO DAILY, #60 TAB 0 Refills Insulin Aspart Inj (Novolog Inj) 1,000 Unit/10 Ml Vial 20 UNITS SQ TID for Blood Sugar Management, #10 ML 0 Refills Insulin Glargine Inj (Lantus Inj) 1,000 Unit/10 Ml Vial 80 UNITS SQ DAILY for Blood Sugar Management, VIAL 0 Refills Losartan (Losartan) 100 Mg Tab 100 MG PO DAILY for Blood Pressure Management, #30 TAB 0 Refills Discontinued Medications: Hydrochlorothiazide (Hydrochlorothiazide) 25 Mg Tab 25 MG PO DAILY, #30 TAB 0 Refills Metformin (Metformin) 1,000 Mg Tab 1000 MG PO BID for Blood Sugar Management, #60 TAB 0 Refills Sameer Felder MD Feb 18, 2017 17:56
[2017-02-18] MEDS ORDERED: BISACODYL EC 5 MG TABEC PO SCH (18:00)
[2017-02-18] MEDS ORDERED: DILTIAZEM-CD 180 MG CAP ER PO SCH (18:00)
[2017-02-18] MEDS ORDERED: BISACODYL EC 5 MG TABEC PO ONE (21:00)
[2017-02-19] MEDS ORDERED: clonazePAM 1 MG TAB PO PRN (09:00)
[2017-02-19] MEDS ORDERED: IRON SUCROSE INJ 200 MG in SODIUM CHLORIDE 0.9% INJ 100 ML IV SCH (09:00)
== END 2017-02-18 19:14 | disposition home or self-care (01) | DRG 811 ==
LOC: NEPC 13:16 → NEDA 15:42 → N04A 17:51
PROVIDERS: ADMIT Family Medicine; ATTEND Family Medicine
PROC: 30233N1 Transfusion of Nonautologous Red Blood Cells into Peripheral Vein, Percutaneous Approach (ICD-10-PCS; 2017-02-12)
PROC: 0DBL8ZX Excision of Transverse Colon, Via Natural or Artificial Opening Endoscopic, Diagnostic (ICD-10-PCS; 2017-02-17)
PROC: 0DBN8ZX Excision of Sigmoid Colon, Via Natural or Artificial Opening Endoscopic, Diagnostic (ICD-10-PCS; 2017-02-17)
PROC: 0D5L8ZZ Destruction of Transverse Colon, Via Natural or Artificial Opening Endoscopic (ICD-10-PCS; 2017-02-17)
PROC: 0D598ZZ Destruction of Duodenum, Via Natural or Artificial Opening Endoscopic (ICD-10-PCS; principal; 2017-02-17 14:10)
PROC: 0DBK8ZX Excision of Ascending Colon, Via Natural or Artificial Opening Endoscopic, Diagnostic (ICD-10-PCS; 2017-02-17 14:10)
DX: D50.9 Iron deficiency anemia, unspecified (principal); K31.811 Angiodysplasia of stomach and duodenum with bleeding; N17.9 Acute kidney failure, unspecified; Z68.43 Body mass index [BMI] 50.0-59.9, adult; K92.1 Melena; I48.91 Unspecified atrial fibrillation; J43.9 Emphysema, unspecified; I10 Essential (primary) hypertension; E11.9 Type 2 diabetes mellitus without complications; K63.5 Polyp of colon; E78.5 Hyperlipidemia, unspecified; E66.01 Morbid (severe) obesity due to excess calories; K21.9 Gastro-esophageal reflux disease without esophagitis; R00.0 Tachycardia, unspecified; K64.9 Unspecified hemorrhoids; Z79.4 Long term (current) use of insulin; Z87.891 Personal history of nicotine dependence; Z79.01 Long term (current) use of anticoagulants
CPT/HCPCS: 36415; 36430; 71010; 80048; 80053; 80069; 81001; 82272; 82550; 82552; 82728; 82948; 83540; 83550; 83735; 83880; 84100; 84484; 85025; 85027; 85610; 85730; 86850; 86900; 86901; 86920; 88305; 93005; 94640; 94664; C9113; J1160; J1644; J1815; J7030; J7120; P9016

== ENCOUNTER 2017-03-05 14:57 | Emergency (ER) | payer MEDICARE, OTHER ==
[~2017-03-05] VITALS: Ht 182.9 cm; Wt 182.0 kg
[~2017-03-05 14:57] MED LIST: APIX5TAB PO; CLON1TAB PO; CYMB60CA PO; DIGO0.12 PO; DILT360C12 PO; DOCU8.6T PO; FERR325T18 PO; FURO1TAB60 PO; LANTUS2P SQ; LOSA100T PO; NOVOLOGP2 SQ
[2017-03-05] MEDS ORDERED: SODIUM CHLORIDE 0.9% FLUSH 10 ML FLUSH IVF PRN (15:30)
--- NOTE | 2017-03-05 15:30 | PD ---
HPI Chief Complaint: weakness, SOB Time Seen by Provider: 15:24 Travel History International Travel<30 days: No Contact w/Intl Traveler<30days: No History of Present Illness HPI 66-year-old male presents to the emergency department for evaluation of bilateral lower extremity weakness, shortness of breath with exertion. Patient states his symptoms started approximately a month or 2 ago, but has been worsening. Patient states that he believes this because of his Cardizem that he is on for A. fib. Patient was recently discharged from the hospital on February 18, 2017 for anemia, A. fib and RVR. He was found to have a hemoglobin is 6.3 on admission. He is currently on Ahlquist for his A. fib. Patient denies any fevers or chills. He denies any chest pain. He has no shortness of breath with sitting still, only with exertion. He does have some bilateral lower extremity erythema that he states has been ongoing for at least a month. He denies any abdominal pain. No nausea, vomiting, diarrhea. He has past medical history of hemorrhoids, A. fib on Eliquis, iron deficiency anemia, hypertension, diabetes, emphysema, morbidly obese, During last admission, patient had EGD/colonoscopy. 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 He was discharged with a hemoglobin of 8.0. Patient denies any pain. Moderate severity. PFSH Past Medical History Hx Anticoagulant Therapy: Yes (ELOQUIS) Autoimmune Disease: No Anxiety: Yes (Takes klonopin) Depression: No Heart Rhythm Problems: Yes (Afib currently) Cancer: No Cardiovascular Problems: Yes Diabetes: Yes Diminished Hearing: No Genitourinary: No Immune Disorder: No Musculoskeletal: Yes Neurologic: No Psychiatric: Yes Reproductive: No Respiratory: Yes Thyroid Disease: No Past Surgical History Abdominal Surgery: No Cardiac Surgery: Yes (Cardiac cath 1989) Ear Surgery: No Endocrine Surgery: Yes (Tonsillectomy) Eye Surgery: No Genitourinary Surgery: Yes (Vascectomy) Gynecologic Surgery: No Oral Surgery: No Thoracic Surgery: No Other Surgery: Yes (VEIN STRIPPING BILATERAL LE) Social History Alcohol Use: No Tobacco Use: No Substance Use: No Allergies-Medications (Allergen,Severity, Reaction): Coded Allergies: No Known Allergies (Unverified , 03/05/17) Reported Meds & Prescriptions Reported Meds & Active Scripts Active Diltiazem CD 24 HR 360 Mg Capcr 360 Mg PO DAILY Docusate Sodium-Senna (Sennosides-Docusate Sodium) 8.6-50 Mg Tab 1 Tab PO DAILY Ferrous Sulfate 325 Mg (65 Mg Iron) Tablet 325 Mg PO TIDPC Digoxin 0.125 Mg Tab 0.125 Mg PO DAILY Eliquis (Apixaban) 5 Mg Tab 5 Mg PO BID start on wednesday 02/21. do not take this any sooner than friday Reported Albuterol Neb (Albuterol Sulfate) 2.5 Mg/3 Ml Neb 2.5 Mg NEB Q6HR PRN Ventolin Hfa 18 GM Inh (Albuterol Sulfate) 90 Mcg/Act Aer 2 Puff INH Q4HR PRN Clonazepam 1 Mg Tab 1 Mg PO BID Losartan (Losartan Potassium) 100 Mg Tab 100 Mg PO DAILY Lasix (Furosemide) 40 Mg Tab 40 Mg PO DAILY Cymbalta DR (Duloxetine HCl) 60 Mg Capdr 60 Mg PO DAILY Lantus Inj (Insulin Glargine) 1,000 Unit/10 Ml Vial 80 Units SQ DAILY Novolog Inj (Insulin Aspart) 1,000 Unit/10 Ml Vial 20 Units SQ TID Review of Systems Except as stated in HPI: all other systems reviewed are Neg Physical Exam Narrative GENERAL: Well-nourished, well-developed morbidly obese male patient, afebrile. Patient is pale. SKIN: Focused skin assessment warm/dry. HEAD: Normocephalic. Atraumatic. EYES: No scleral icterus. No injection or drainage. NECK: Supple, trachea midline. No JVD or lymphadenopathy. CARDIOVASCULAR: Regular rate and rhythm without murmurs, gallops, or rubs. Bilateral radial and pedal pulses are 2+. RESPIRATORY: Breath sounds equal bilaterally. No accessory muscle use. Lungs sounds are clear to auscultation. GASTROINTESTINAL: Abdomen soft, non-tender, nondistended. MUSCULOSKELETAL: No cyanosis. Bilateral 2+ extremity edema with erythema noted to the distal bilateral lower extremities. BACK: Nontender without obvious deformity. No CVA tenderness. Data Data Last Documented VS Vital Signs Date Time Temp Pulse Resp B/P (MAP) Pulse Ox O2 Delivery O2 Flow Rate FiO2 03/05/17 17:30 90 22 146/108 (121) 97 Nasal Cannula 2.00 03/05/17 16:05 97.7 Orders Orders Complete Blood Count With Diff (03/05/17 15:19) Basic Metabolic Panel (Bmp) (03/05/17 15:19) B-Type Natriuretic Peptide (03/05/17 15:19) Act Partial Throm Time (Ptt) (03/05/17 15:19) Prothrombin Time / Inr (Pt) (03/05/17 15:19) Magnesium (Mg) (03/05/17 15:19) Ckmb (Isoenzyme) Profile (03/05/17 15:19) Troponin I (03/05/17 15:19) Urinalysis - C+S If Indicated (03/05/17 15:19) Iv Access Insert/Monitor (03/05/17 15:19) Electrocardiogram (03/05/17 15:19) Ecg Monitoring (03/05/17 15:19) Oximetry (03/05/17 15:19) Oxygen Administration (03/05/17 15:19) Chest, Single Ap (03/05/17 15:19) Sodium Chloride 0.9% Flush (Ns Flush) (03/05/17 15:30) Type And Screen (03/05/17 15:19) CKMB (03/05/17 15:32) CKMB% (03/05/17 15:32) Us Leg Venous Doppler Bilat (03/05/17 ) Ct Pulmonary Angiogram (03/05/17 ) Iohexol 350 Inj (Omnipaque 350 Inj) (03/05/17 18:43) Labs Laboratory Tests Test 03/05/17 15:32 03/05/17 16:57 White Blood Count 9.3 TH/MM3 Red Blood Count 3.68 MIL/MM3 Hemoglobin 9.1 GM/DL Hematocrit 31.1 % Mean Corpuscular Volume 84.4 FL Mean Corpuscular Hemoglobin 24.7 PG Mean Corpuscular Hemoglobin Concent 29.3 % Red Cell Distribution Width 23.8 % Platelet Count 215 TH/MM3 Mean Platelet Volume 7.9 FL Neutrophils (%) (Auto) 68.8 % Lymphocytes (%) (Auto) 14.0 % Monocytes (%) (Auto) 6.6 % Eosinophils (%) (Auto) 9.1 % Basophils (%) (Auto) 1.5 % Neutrophils # (Auto) 6.4 TH/MM3 Lymphocytes # (Auto) 1.3 TH/MM3 Monocytes # (Auto) 0.6 TH/MM3 Eosinophils # (Auto) 0.8 TH/MM3 Basophils # (Auto) 0.1 TH/MM3 CBC Comment DIFF FINAL Differential Comment Prothrombin Time 10.7 SEC Prothromb Time International Ratio 1.1 RATIO Activated Partial Thromboplast Time 31.7 SEC Blood Urea Nitrogen 19 MG/DL Creatinine 1.40 MG/DL Random Glucose 296 MG/DL Calcium Level 8.5 MG/DL Magnesium Level 2.0 MG/DL Sodium Level 136 MEQ/L Potassium Level 4.0 MEQ/L Chloride Level 102 MEQ/L Carbon Dioxide Level 26.1 MEQ/L Anion Gap 8 MEQ/L Estimat Glomerular Filtration Rate 51 ML/MIN Total Creatine Kinase 144 U/L Creatine Kinase MB 1.7 NG/ML Troponin I LESS THAN 0.02 NG/ML B-Type Natriuretic Peptide 138 PG/ML Urine Color YELLOW Urine Turbidity CLEAR Urine pH 5.0 Urine Specific [place] 1.013 Urine Protein TRACE mg/dL Urine Glucose (UA) 300 mg/dL Urine Ketones NEG mg/dL Urine Occult Blood NEG Urine Nitrite NEG Urine Bilirubin NEG Urine Urobilinogen LESS THAN 2.0 MG/DL Urine Leukocyte Esterase NEG Urine WBC 1 /hpf Urine Squamous Epithelial Cells <1 /hpf Urine Mucus FEW /lpf Microscopic Urinalysis Comment CULT NOT INDICATED MDM Medical Decision Making Medical Screen Exam Complete: Yes Emergency Medical Condition: Yes Medical Record Reviewed: Yes Interpretation(s) Last Impressions Chest X-Ray 03/05/17 1519 Signed Impressions: Service Date/Time: Sunday, March 05, 2017 15:34 - CONCLUSION: No acute disease. Nixon Bess MD CT PA - CONCLUSION: 1. Examination is limited due to patient's body habitus. 2. The pulmonary arteries are visualized to the proximal segmental level only without a significant filling defect. More distal segmental and subsegmental pulmonary branches are insufficiently evaluated. 3. Prominent main pulmonary artery measuring up to 4.3 cm consistent with some degree of pulmonary artery hypertension. 4. Nonspecific mediastinal adenopathy. Statistically, this is likely reactive. 5. Minimal bibasilar ground glass opacities likely reflect atelectasis. Us - CONCLUSION: 1. No sonographic evidence for lower extremity DVT. 2. Bilateral inguinal adenopathy, likely reactive. Differential Diagnosis Anemia versus electrolyte abnormality versus CHF versus COPD exacerbation Narrative Course 66-year-old male presents to the emergency department via EMS for evaluation of bilateral lower extremity weakness, shortness of breath with exertion. EKG, CBC , BMP, BNP, magnesium, CK, troponin, PTT, PT/INR, type and screen are ordered and pending. UA is ordered and pending. Chest x-ray is ordered and pending. EKG shows atrial fibrillation, heart rate 83, no acute ST changes. CBC shows anemia with hemoglobin 9.1, hematocrit 31.1. BMP shows BUN 19, creatinine 1.40 , glucose 296. BNP is 138. CK is 144. Troponin is less than 0.02. Coags show no acute abnormality. Chest x-ray shows no acute disease. My attending physician, Dr. Leon, examined patient. He recommends venous Doppler ultrasound bilateral lower extremities and CT pulmonary angiogram. These are ordered. Ultrasound shows no evidence of DVT. CT pulmonary angiogram shows Examination is limited due to patient's body habitus; The pulmonary arteries are visualized to the proximal segmental level only without a significant filling defect. More distal segmental and subsegmental pulmonary branches are insufficiently evaluated; Prominent main pulmonary artery measuring up to 4.3 cm consistent with some degree of pulmonary artery hypertension; Nonspecific mediastinal adenopathy. Statistically, this is likely reactive; Minimal bibasilar ground glass opacities likely reflect atelectasis. I discussed results with patient. He states he will follow-up with his shuttle fixer. As such and to return here for any acute worsening of symptoms. My attending physician, Dr. Leon, has seen and examined patient. He agrees with plan and disposition. The patient was discharged in stable condition with instructions, including return instructions and follow up instructions. Diagnosis Primary Impression: Generalized weakness Referrals: Processing Technologist Patient Instructions: General Instructions, Weakness (ED) Additional Instructions: Follow-up with your primary care physician and shuttle fixer. Return to the emergency department for any acute worsening of symptoms. Med/Other Pt SpecificInfo: No Change to Meds Disposition: 01 DISCHARGE HOME Condition: Stable Lesly Servin LIDIA Mar 05, 2017 15:30
[2017-03-05 15:40] VITALS: TEMP 97.7
--- NOTE | 2017-03-05 15:55 | RADRPT ---
EXAM DATE/TIME: 03/05/2017 15:34 [facility] COMPARISON: CHEST SINGLE AP, February 12, 2017, 14:25. INDICATIONS : Short of breath. Weakness. MEDICAL HISTORY : A-fib. SURGICAL HISTORY : None. ENCOUNTER: Initial ACUITY: 1 day PAIN SCORE: 0/10 LOCATION: Bilateral chest FINDINGS: A single view of the chest demonstrates the lungs to be symmetrically aerated without evidence of mas s, infiltrate or effusion. The cardiomediastinal contours are unremarkable. Osseous structures are intact. CONCLUSION: No acute disease. Nixon Bess MD on March 05, 2017 at 15:53 Board Certified Radiologist. This report was verified electronically.
[2017-03-05 16:00] LABS: AUTOMATED NEUTROPHIL # 6.4 TH/MM3 (1.8-7.7); BASOPHIL # 0.1 TH/MM3 (0-0.2); BASOPHIL % 1.5 % (0.0-2.0); EOSINOPHIL # 0.8 TH/MM3 (0-0.4); EOSINOPHIL % 9.1 % (0.0-4.0); HEMATOCRIT 31.1 % (39.0-51.0); HEMOGLOBIN 9.1 GM/DL (13.0-17.0); LYMPHOCYTE # 1.3 TH/MM3 (1.0-4.8); MEAN CELL VOLUME 84.4 FL (80.0-100.0); MEAN CORPUSCULAR HEMOGLOBIN 24.7 PG (27.0-34.0); MEAN PLATELET VOLUME 7.9 FL (7.0-11.0); MONO % 6.6 % (0.0-8.0); MONOCYTE # 0.6 TH/MM3 (0-0.9); NEUT % 68.8 % (16.0-70.0); PLATELET COUNT 215 TH/MM3 (150-450); RED BLOOD COUNT 3.68 MIL/MM3 (4.50-5.90); RED CELL DISTRIBUTION WIDTH 23.8 % (11.6-17.2); WHITE BLOOD COUNT 9.3 TH/MM3 (4.0-11.0)
[2017-03-05 16:01] LABS: MEAN CORPUSCULAR HGB CONC 29.3 % (32.0-36.0)
[2017-03-05 16:05] VITALS: BP 161/67; PULSE 92; RESP 16; TEMP 97.7; O2SAT 94
[2017-03-05] MEDS ORDERED: ALBU0.08 NEB (16:05)
[2017-03-05] MEDS ORDERED: VENTAER INH (16:05)
[2017-03-05 16:06] LABS: INTERNATIONAL NORMALIZED RATIO 1.1 RATIO; PROTHROMBIN TIME - PATIENT 10.7 SEC (9.8-11.6)
[2017-03-05 16:18] LABS: BICARBONATE 26.1 MEQ/L (21.0-32.0); BLOOD UREA NITROGEN 19 MG/DL (7-18); CALCIUM 8.5 MG/DL (8.5-10.1); CHLORIDE 102 MEQ/L (98-107); GLOMERULAR FILTRATION RATE 51 ML/MIN (>89); GLUCOSE,RANDOM 296 MG/DL (74-106); SODIUM (NA) 136 MEQ/L (136-145)
[2017-03-05 16:22] LABS: TROPONIN I LESS THAN 0.02 NG/ML (0.02-0.05)
[2017-03-05 16:30] VITALS: BP 141/62; PULSE 86; RESP 19; O2SAT 95
[2017-03-05 17:27] LABS: BILIRUBIN, URINE NEG (NEG); BLOOD, URINE NEG (NEG); GLUCOSE,URINE 300 mg/dL (NEG); KETONE, URINE NEG (NEG); MUCUS URINE FEW /lpf (OCC); NITRITE,URINE NEG (NEG); SQUAMOUS EPITHELIAL CELL URINE <1 /hpf (0-5); URINE COLOR YELLOW (YELLW/STRAW); URINE LEUKOCYTE ESTERASE NEG (NEG)
[2017-03-05 17:30] VITALS: BP 146/108; PULSE 90; RESP 22; O2SAT 97
--- NOTE | 2017-03-05 18:28 | PD ---
Data Data Last Documented VS Orders Orders Complete Blood Count With Diff (03/05/17 15:19) Basic Metabolic Panel (Bmp) (03/05/17 15:19) B-Type Natriuretic Peptide (03/05/17 15:19) Act Partial Throm Time (Ptt) (03/05/17 15:19) Prothrombin Time / Inr (Pt) (03/05/17 15:19) Magnesium (Mg) (03/05/17 15:19) Ckmb (Isoenzyme) Profile (03/05/17 15:19) Troponin I (03/05/17 15:19) Urinalysis - C+S If Indicated (03/05/17 15:19) Iv Access Insert/Monitor (03/05/17 15:19) Electrocardiogram (03/05/17 15:19) Ecg Monitoring (03/05/17 15:19) Oximetry (03/05/17 15:19) Oxygen Administration (03/05/17 15:19) Chest, Single Ap (03/05/17 15:19) Sodium Chloride 0.9% Flush (Ns Flush) (03/05/17 15:30) Type And Screen (03/05/17 15:19) CKMB (03/05/17 15:32) CKMB% (03/05/17 15:32) Us Leg Venous Doppler Bilat (03/05/17 ) Ct Pulmonary Angiogram (03/05/17 ) Iohexol 350 Inj (Omnipaque 350 Inj) (03/05/17 18:43) Ed Discharge Order (03/05/17 19:43) Labs Laboratory Tests Test 03/05/17 15:32 03/05/17 16:57 White Blood Count 9.3 TH/MM3 Red Blood Count 3.68 MIL/MM3 Hemoglobin 9.1 GM/DL Hematocrit 31.1 % Mean Corpuscular Volume 84.4 FL Mean Corpuscular Hemoglobin 24.7 PG Mean Corpuscular Hemoglobin Concent 29.3 % Red Cell Distribution Width 23.8 % Platelet Count 215 TH/MM3 Mean Platelet Volume 7.9 FL Neutrophils (%) (Auto) 68.8 % Lymphocytes (%) (Auto) 14.0 % Monocytes (%) (Auto) 6.6 % Eosinophils (%) (Auto) 9.1 % Basophils (%) (Auto) 1.5 % Neutrophils # (Auto) 6.4 TH/MM3 Lymphocytes # (Auto) 1.3 TH/MM3 Monocytes # (Auto) 0.6 TH/MM3 Eosinophils # (Auto) 0.8 TH/MM3 Basophils # (Auto) 0.1 TH/MM3 CBC Comment DIFF FINAL Differential Comment Prothrombin Time 10.7 SEC Prothromb Time International Ratio 1.1 RATIO Activated Partial Thromboplast Time 31.7 SEC Blood Urea Nitrogen 19 MG/DL Creatinine 1.40 MG/DL Random Glucose 296 MG/DL Calcium Level 8.5 MG/DL Magnesium Level 2.0 MG/DL Sodium Level 136 MEQ/L Potassium Level 4.0 MEQ/L Chloride Level 102 MEQ/L Carbon Dioxide Level 26.1 MEQ/L Anion Gap 8 MEQ/L Estimat Glomerular Filtration Rate 51 ML/MIN Total Creatine Kinase 144 U/L Creatine Kinase MB 1.7 NG/ML Troponin I LESS THAN 0.02 NG/ML B-Type Natriuretic Peptide 138 PG/ML Urine Color YELLOW Urine Turbidity CLEAR Urine pH 5.0 Urine Specific [place] 1.013 Urine Protein TRACE mg/dL Urine Glucose (UA) 300 mg/dL Urine Ketones NEG mg/dL Urine Occult Blood NEG Urine Nitrite NEG Urine Bilirubin NEG Urine Urobilinogen LESS THAN 2.0 MG/DL Urine Leukocyte Esterase NEG Urine WBC 1 /hpf Urine Squamous Epithelial Cells <1 /hpf Urine Mucus FEW /lpf Microscopic Urinalysis Comment CULT NOT INDICATED MDM Supervised Visit with SOURAV: Yes Narrative Course Attestation Statement: The history, exam, and medical decision-making in the associated PSYCHIATRIC NURSING ASSISTANT note were completed with my assistance. I reviewed and agree with the findings presented. I attest that I had a [id number] encounter with the patient on the same day, and personally performed and documented my assessment and findings in the medical record. Abhijeet Leon MD Mar 05, 2017 18:28
[2017-03-05] MEDS ORDERED: IOHEXOL 350 MG/ML 10 ML VIAL (for RAD DIAG) IVCONTRAST ONE (18:43)
--- NOTE | 2017-03-05 19:02 | RADRPT ---
EXAM DATE/TIME: 03/05/2017 18:27 [facility] COMPARISON: No previous studies available for comparison. INDICATIONS : Shortness of breath. IV CONTRAST: 100 cc Omnipaque 350 (iohexol) IV RADIATION DOSE: 32.49 CTDIvol (mGy) ; Patient body habitus MEDICAL HISTORY : Cardiovascular disease. Hypertension. SURGICAL HISTORY : None. ENCOUNTER: Initial ACUITY: 1 day PAIN SCALE: 0/10 LOCATION: Bilateral chest TECHNIQUE: Volumetric scanning of the chest was performed using a pulmonary embolism protocol MIP images were re constructed. Using automated exposure control and adjustment of the mA and/or kV according to patien t size, radiation dose was kept as low as reasonably achievable to obtain optimal diagnostic quality images. DICOM format image data is available electronically for review and comparison. Follow-up recommendations for detected pulmonary nodules are based at a minimum on nodule size and pa tient risk factors according to Fleischner Society Guidelines. FINDINGS: PULMONARY ARTERIES: The pulmonary arteries are not well-demonstrated beyond the proximal segmental level. No evidence for filling defects up to this level. Main pulmonary artery is enlarged measuring up to 4.3 cm. LUNGS: Minimal loss opacities at the lung bases. PLEURAE: There is no pleural thickening or pleural effusion. MEDIASTINUM: Several slightly prominent mediastinal nodes with the largest measuring up to 1.6 cm in the anterior carinal region. The heart is grossly unremarkable. Thoracic aorta is grossly intact. MUSCULOSKELETAL: Within normal limits for patient age. MISCELLANEOUS: The visualized upper abdominal organs demonstrate no acute abnormality. CONCLUSION: 1. Examination is limited due to patient's body habitus. 2. The pulmonary arteries are visualized to the proximal segmental level only without a significant f illing defect. More distal segmental and subsegmental pulmonary branches are insufficiently evaluated . 3. Prominent main pulmonary artery measuring up to 4.3 cm consistent with some degree of pulmonary ar ella hypertension. 4. Nonspecific mediastinal adenopathy. Statistically, this is likely reactive. 5. Minimal bibasilar ground glass opacities likely reflect atelectasis. Shmuel Weinberg MD on March 05, 2017 at 18:55 Board Certified Radiologist. This report was verified electronically.
--- NOTE | 2017-03-05 19:32 | RADRPT ---
EXAM DATE/TIME: 03/05/2017 18:42 [facility] COMPARISON: No previous studies available for comparison. INDICATIONS : Bilateral leg pain. MEDICAL HISTORY : Hypertension. Gastroesophageal reflux disease. Anticoagulant therapy. Afib. Emphysema. Pneumonia. Di abetes. Depression. Anxiety. SURGICAL HISTORY : Tonsillectomy. Bilateral leg vein stripping. Vasectomy. Cardiac catheterization. ENCOUNTER: Initial ACUITY: 1 month PAIN SCORE: 3/10 LOCATION: Bilateral legs. TECHNIQUE: Venous ultrasound of the left and right leg was performed from the inguinal ligament to the proximal calf. Real-time, color Doppler and spectral tracing, compression and augmentation techniques were us ed. FINDINGS: RIGHT LEG: There is normal compressibility of the deep venous system from the inguinal region to the proximal ca lf. No echogenic clot is seen in the lumen of the common femoral, femoral, popliteal, and posterior tibial veins. There is a normal response of the venous system to proximal and distal augmentation an d respiration. LEFT LEG: There is normal compressibility of the deep venous system from the inguinal region to the proximal ca lf. No echogenic clot is seen in the lumen of the common femoral, femoral, popliteal, and posterior tibial veins. There is a normal response of the venous system to proximal and distal augmentation an d respiration. Incidental note of bilateral inguinal adenopathy with largest node measuring 2.4 x 1.6 x 0.8 cm on th e right and 2.5 x 2.1 x 1.1 cm is on the left. CONCLUSION: 1. No sonographic evidence for lower extremity DVT. 2. Bilateral inguinal adenopathy, likely reactive. Shmuel Weinberg MD on March 05, 2017 at 19:30 Board Certified Radiologist. This report was verified electronically.
--- NOTE | 2017-03-06 23:16 | EKG ---
Date Performed: 03/05/2017 Time Performed: 16:03:08 PTAGE: 66 years EKG: ATRIAL FIBRILLATION WITH ABERRANT CONDUCTION OR VENTRICULAR PREMATURE COMPLEXES POSSIBLE RI GHT VENTRICULAR CONDUCTION DELAY ABNORMAL RHYTHM ECG INTERPRETATION BASED ON A DEFAULT AGE OF 39 YEAR S NO PREVIOUS TRACING DOCTOR: Stephen Toro Interpretating Date/Time 03/06/2017 23:14:55
== END 2017-03-05 20:05 | disposition home or self-care (01) ==
LOC: NEPE 14:57
DX: R53.1 Weakness (principal); I48.91 Unspecified atrial fibrillation; E11.9 Type 2 diabetes mellitus without complications; F41.9 Anxiety disorder, unspecified; Z79.01 Long term (current) use of anticoagulants; Z79.4 Long term (current) use of insulin
CPT/HCPCS: 71010; 71275; 80048; 81001; 82550; 82552; 83735; 83880; 84484; 85025; 85610; 85730; 86850; 86900; 86901; 93005; 93970; 99285; Q9967

== ENCOUNTER 2017-03-17 16:16 | Inpatient (IN) | payer OTHER, MEDICARE ==
[~2017-03-17] VITALS: Ht 182.9 cm; Wt 192.7 kg
[~2017-03-17 16:16] MED LIST changes: +ALBU0.08 NEB; +VENTAER INH
[2017-03-17 16:19] VITALS: BP 142/70; PULSE 88; RESP 22; TEMP 99.4; O2SAT 88
--- NOTE | 2017-03-17 17:20 | RADRPT ---
EXAM DATE/TIME: 03/17/2017 16:53 [facility] COMPARISON: No previous studies available for comparison. INDICATIONS : Short of breath. Abnormal EKG. MEDICAL HISTORY : Chronic obstructive pulmonary disease. Congestive heart failure. Hypertension. A-fib. SURGICAL HISTORY : None. ENCOUNTER: Initial ACUITY: >1 year PAIN SCORE: 0/10 LOCATION: Bilateral chest FINDINGS: There is cardiomegaly with moderate interstitial edema. Trace pleural effusion on the right. No con solidation no pneumothorax mild degenerative changes thoracic spine. CONCLUSION: Moderate congestive failure. Evelio John MD FACR on March 17, 2017 at 17:13 Board Certified Radiologist. This report was verified electronically.
[2017-03-17 18:17] LABS: BASOPHIL # 0.1 TH/MM3 (0-0.2); BASOPHIL % 1.1 % (0.0-2.0); EOSINOPHIL # 0.7 TH/MM3 (0-0.4); EOSINOPHIL % 7.8 % (0.0-4.0); HEMATOCRIT 34.1 % (39.0-51.0); HEMOGLOBIN 10.7 GM/DL (13.0-17.0); LYMPHOCYTE # 1.4 TH/MM3 (1.0-4.8); MEAN CELL VOLUME 88.1 FL (80.0-100.0); MEAN CORPUSCULAR HEMOGLOBIN 27.7 PG (27.0-34.0); MEAN CORPUSCULAR HGB CONC 31.5 % (32.0-36.0); MEAN PLATELET VOLUME 8.1 FL (7.0-11.0); MONO % 8.6 % (0.0-8.0); MONOCYTE # 0.8 TH/MM3 (0-0.9); NEUT % 66.5 % (16.0-70.0); PLATELET COUNT 208 TH/MM3 (150-450); RED BLOOD COUNT 3.87 MIL/MM3 (4.50-5.90); RED CELL DISTRIBUTION WIDTH 27.1 % (11.6-17.2); WHITE BLOOD COUNT 9.1 TH/MM3 (4.0-11.0)
[2017-03-17 18:28] LABS: INTERNATIONAL NORMALIZED RATIO 1.1 RATIO; PROTHROMBIN TIME - PATIENT 11.1 SEC (9.8-11.6)
[2017-03-17 18:49] LABS: OVALOCYTES 2+ (NORMAL); TEARDROP RBCS 1+ (NORMAL)
[2017-03-17 18:55] VITALS: BP 158/72; PULSE 85; RESP 18; O2SAT 98
[2017-03-17] MEDS ORDERED: FUROSEMIDE 40 MG/4 ML VIAL IV PUSH ONE (19:00)
--- NOTE | 2017-03-17 19:05 | PD ---
HPI Chief Complaint: Cardiac Complaint Time Seen by Provider: 18:37 Travel History International Travel<30 days: No Contact w/Intl Traveler<30days: No Traveled to known affect area: No History of Present Illness HPI 66-year-old male presents to the emergency department for increasing shortness of breath, feeling like he is retaining fluid since December. Patient denies any headaches, fevers, chills. No chest pain. He states he has mild abdominal pain due to feeling like there is fluid in there. He states the legs or swelling. Patient reports past medical history of hemorrhoids, AFib on eliquis , history of iron deficiency anemia, hypertension, diabetes, emphysema, morbidly obese, CHF. He states he is currently taking Lasix 40 mg twice a day, but fluid retention is worsening. Patient states he saw his animal skinner, today , Dr. Whitt, who referred him to the emergency department. No exacerbating or alleviating factors. Moderate severity. PFSH Past Medical History Hx Anticoagulant Therapy: Yes Atrial Fibrillation: Yes Autoimmune Disease: No Anxiety: Yes Depression: Yes Heart Rhythm Problems: Yes Cancer: No Cardiac Catheterization: Yes Cardiovascular Problems: Yes Diabetes: Yes Patient Takes Glucophage: No Diminished Hearing: No Gastrointestinal Disorders: Yes GERD: Yes Genitourinary: No Hypertension: Yes Immune Disorder: No Musculoskeletal: Yes Neurologic: No Psychiatric: Yes Reproductive: No Respiratory: Yes Pneumonia: Yes Thyroid Disease: No ?: Not Past Surgical History Abdominal Surgery: No Cardiac Surgery: Yes (Cardiac cath 1989) Ear Surgery: No Endocrine Surgery: Yes (Tonsillectomy) Eye Surgery: No Genitourinary Surgery: Yes (VASECTOMY) Gynecologic Surgery: No Oral Surgery: No Thoracic Surgery: No Tonsillectomy: Yes Other Surgery: Yes (VEIN STRIPPING BILATERAL LE) Social History Alcohol Use: No Tobacco Use: No Substance Use: No Allergies-Medications (Allergen,Severity, Reaction): Coded Allergies: No Known Allergies (Unverified , 03/05/17) Reported Meds & Prescriptions Reported Meds & Active Scripts Active Diltiazem CD 24 HR 360 Mg Capcr 360 Mg PO DAILY Ferrous Sulfate 325 Mg (65 Mg Iron) Tablet 325 Mg PO TIDPC Digoxin 0.125 Mg Tab 0.125 Mg PO DAILY Eliquis (Apixaban) 5 Mg Tab 5 Mg PO BID start on wednesday 02/21. do not take this any sooner than friday Reported Albuterol Neb (Albuterol Sulfate) 2.5 Mg/3 Ml Neb 2.5 Mg NEB Q6HR PRN Ventolin Hfa 18 GM Inh (Albuterol Sulfate) 90 Mcg/Act Aer 2 Puff INH Q4HR PRN Clonazepam 1 Mg Tab 1 Mg PO BID Losartan (Losartan Potassium) 100 Mg Tab 100 Mg PO DAILY Lasix (Furosemide) 40 Mg Tab 40 Mg PO BID Cymbalta DR (Duloxetine HCl) 60 Mg Capdr 60 Mg PO DAILY Lantus Inj (Insulin Glargine) 1,000 Unit/10 Ml Vial 80 Units SQ DAILY Novolog Inj (Insulin Aspart) 1,000 Unit/10 Ml Vial 20 Units SQ TID Review of Systems Except as stated in HPI: all other systems reviewed are Neg Physical Exam Narrative GENERAL: Well-nourished, well-developed obese male patient, afebrile. SKIN: Focused skin assessment warm/dry. Patient has chronic changes to the bilateral lower extremities. HEAD: Normocephalic. Atraumatic. EYES: No scleral icterus. No injection or drainage. NECK: Supple, trachea midline. No JVD or lymphadenopathy. CARDIOVASCULAR: Regular rate and rhythm without murmurs, gallops, or rubs. RESPIRATORY: Breath sounds equal bilaterally. No accessory muscle use. Lungs sounds diminished. GASTROINTESTINAL: Abdomen distended.. MUSCULOSKELETAL: No cyanosis. Bilateral 3+ lower extremity edema. BACK: Nontender without obvious deformity. No CVA tenderness. Data Data Last Documented VS Vital Signs Date Time Temp Pulse Resp B/P (MAP) Pulse Ox O2 Delivery O2 Flow Rate FiO2 03/17/17 18:55 85 18 158/72 (100) 98 Room Air 4.00 03/17/17 16:19 99.4 Orders Orders Complete Blood Count With Diff (03/17/17 16:39) Comprehensive Metabolic Panel (03/17/17 16:39) B-Type Natriuretic Peptide (03/17/17 16:39) Act Partial Throm Time (Ptt) (03/17/17 16:39) Prothrombin Time / Inr (Pt) (03/17/17 16:39) Magnesium (Mg) (03/17/17 16:39) Ckmb (Isoenzyme) Profile (03/17/17 16:39) Troponin I (03/17/17 16:39) Electrocardiogram (03/17/17 16:39) Chest, Pa & Lat (03/17/17 16:39) Furosemide Inj (Lasix Inj) (03/17/17 19:00) CKMB (03/17/17 17:50) CKMB% (03/17/17 17:50) Place In Observation (03/17/17 ) Vital Signs (Adult) Q4H (03/17/17 20:12) Activity Oob With Assistance (03/17/17 20:12) Director Biostatistics / Telemetry .CONTINUOUS (03/17/17 20:12) Intake + Output ROMEO.QSHIFT (03/17/17 20:12) Diet Heart Healthy (03/18/17 Breakfast) Sodium Chloride 0.9% Flush (Ns Flush) (03/17/17 20:15) Sodium Chloride 0.9% Flush (Ns Flush) (03/17/17 21:00) Basic Metabolic Panel (Bmp) (03/18/17 06:00) Complete Blood Count With Diff (03/18/17 06:00) Creatine Kinase (Cpk) (03/17/17 23:50) Creatine Kinase (Cpk) (03/18/17 05:50) Troponin I (03/17/17 23:55) Troponin I (03/18/17 05:55) Electrocardiogram (03/17/17 23:55) Electrocardiogram (03/18/17 05:55) Pt Request For Service (03/17/17 20:12) Case Management Consult (03/17/17 20:12) Naloxone Inj (Narcan Inj) (03/17/17 20:15) Admit Order (Ed Use Only) (03/17/17 20:12) Labs Laboratory Tests Test 03/17/17 17:50 White Blood Count 9.1 TH/MM3 Red Blood Count 3.87 MIL/MM3 Hemoglobin 10.7 GM/DL Hematocrit 34.1 % Mean Corpuscular Volume 88.1 FL Mean Corpuscular Hemoglobin 27.7 PG Mean Corpuscular Hemoglobin Concent 31.5 % Red Cell Distribution Width 27.1 % Platelet Count 208 TH/MM3 Mean Platelet Volume 8.1 FL Neutrophils (%) (Auto) 66.5 % Lymphocytes (%) (Auto) 16.0 % Monocytes (%) (Auto) 8.6 % Eosinophils (%) (Auto) 7.8 % Basophils (%) (Auto) 1.1 % Neutrophils # (Auto) 6.0 TH/MM3 Lymphocytes # (Auto) 1.4 TH/MM3 Monocytes # (Auto) 0.8 TH/MM3 Eosinophils # (Auto) 0.7 TH/MM3 Basophils # (Auto) 0.1 TH/MM3 CBC Comment AUTO DIFF Differential Comment AUTO DIFF CONFIRMED Platelet Estimate NORMAL Platelet Morphology Comment NORMAL Tear Drop Cells 1+ Ovalocytes 2+ Prothrombin Time 11.1 SEC Prothromb Time International Ratio 1.1 RATIO Activated Partial Thromboplast Time 33.1 SEC Blood Urea Nitrogen 19 MG/DL Creatinine 1.57 MG/DL Random Glucose 309 MG/DL Total Protein 8.1 GM/DL Albumin 3.5 GM/DL Calcium Level 8.7 MG/DL Magnesium Level 1.9 MG/DL Alkaline Phosphatase 73 U/L Aspartate Amino Transf (AST/SGOT) 25 U/L Alanine Aminotransferase (ALT/SGPT) 32 U/L Total Bilirubin 0.6 MG/DL Sodium Level 133 MEQ/L Potassium Level 4.2 MEQ/L Chloride Level 97 MEQ/L Carbon Dioxide Level 28.5 MEQ/L Anion Gap 8 MEQ/L Estimat Glomerular Filtration Rate 44 ML/MIN Total Creatine Kinase 119 U/L Creatine Kinase MB 1.2 NG/ML Troponin I LESS THAN 0.02 NG/ML B-Type Natriuretic Peptide 123 PG/ML [facility] Medical Decision Making Medical Screen Exam Complete: Yes Emergency Medical Condition: Yes Medical Record Reviewed: Yes Differential Diagnosis CHF exacerbation versus COPD exacerbation versus pneumonia Narrative Course 66-year-old male presents to the emergency department for shortness of breath, fluid retention. Oxygen saturation was 88% on room air. He was also seen on March 05, 2017. Bilateral lower extremity ultrasound showed no DVT. CT pulmonary angiogram showed no PE. EKG shows atrial fibrillation, heart rate 88. CBC shows hemoglobin 10.7, hematocrit 34.1. CMP shows BUN 19, creatinine 1.57. Magnesium is 1.9. CK is 119. Troponin is less than 0.02. BNP is 123. Coags show no acute abnormality. Chest x-ray shows moderate congestive failure. Patient was given Lasix 40 mg IV. Patient will be admitted for CHF exacerbation. He agrees to this. Dr. Caceres accepted admission. Diagnosis Primary Impression: CHF exacerbation Qualified Codes: I50.9 - Heart failure, unspecified Admitting Information Admitting Physician Requests: Observation Lesly Servin Mar 17, 2017 19:05
[2017-03-17 19:27] LABS: ALBUMIN 3.5 GM/DL (3.4-5.0); ALKALINE PHOSPHATASE 73 U/L (45-117); ALT (GPT) 32 U/L (12-78); AST (GOT) 25 U/L (15-37); BICARBONATE 28.5 MEQ/L (21.0-32.0); BLOOD UREA NITROGEN 19 MG/DL (7-18); CALCIUM 8.7 MG/DL (8.5-10.1); CHLORIDE 97 MEQ/L (98-107); CREATININE 1.57 MG/DL (0.60-1.30); GLOMERULAR FILTRATION RATE 44 ML/MIN (>89); GLUCOSE,RANDOM 309 MG/DL (74-106); MAGNESIUM 1.9 MG/DL (1.5-2.5); SODIUM (NA) 133 MEQ/L (136-145); TOTAL BILIRUBIN ADULT 0.6 MG/DL (0.2-1.0); TOTAL PROTEIN 8.1 GM/DL (6.4-8.2); TROPONIN I LESS THAN 0.02 NG/ML (0.02-0.05)
[2017-03-17] MEDS ORDERED: NALOXONE HCL 0.4 MG/ML AMP IV PUSH PRN (20:15)
[2017-03-17] MEDS ORDERED: SODIUM CHLORIDE 0.9% FLUSH 10 ML FLUSH IV FLUSH PRN (20:15)
[2017-03-17] MEDS: SODIUM CHLORIDE 0.9% FLUSH 10 ML FLUSH IV FLUSH SCH (20:52)
[2017-03-17 23:00] VITALS: PULSE 111
[2017-03-17] MEDS ORDERED: POTA-163 PO (23:21)
[2017-03-17] MEDS ORDERED: CLIN150C14 PO (23:22)
[2017-03-18] VITALS (9 sets, daily range): BP systolic 129–185; BP diastolic 59–112; PULSE 87–111; RESP 18–20; TEMP 97.8–98.7; O2SAT 91–97
[2017-03-18 01:18] LABS: TROPONIN I LESS THAN 0.02 NG/ML (0.02-0.05)
--- NOTE | 2017-03-18 07:54 | HHI.HP ---
[facility] Service [facility] Primary Care Physician Unknown Admission Diagnosis CHF exacerbation Diagnoses: Chief Complaint: shortness of breath Travel History International Travel<30 Days: No Contact w/Intl Traveler <30 Da: No Traveled to Known Affected Are: No History of Present Illness Written by Prema Mccarty, acting as scribe for Dr. Smith on 03/18/17 at 07: 47. 66-year-old male with history of atrial fibrillation on Eliquis, CHF, DM, HTN, anemia with GI bleeding, presents with a 6 week history of shortness of breath, fluid retention, weight gain. The patient reports he was seen by his tight rope walker Dr. Whitt yesterday in the office and was sent straight to the hospital. He states he has been very short of breath for awhile now. He has worsening dyspnea on exertion. He states he can only walk a few feet without becoming dyspneic. He endorses significant orthopnea and paroxysmal nocturnal dyspnea. He reports checking his pulse ox at home when he becomes short of breath and it will drop to 79%. He does not wear oxygen at home. He also reports increasing leg swelling and fluid retention. He was started on clindamycin a few days ago for lower extremity cellulitis. He reports a 50lbs weight gain in the past 6 weeks. He denies any chest pain, cough, congestion, fevers, or chills. He has been taking lasix 40mg once daily except dose was recently increased to twice a day over the past 3 days. He has no other medical complaints to report at this time. Review of Systems Except as stated in HPI: all other systems reviewed are Neg Past Family Social History Past Medical History atrial fibrillation on Eliquis CHF Hypertension Diabetes mellitus, insulin dependent anemia with GI bleeding Past Surgical History EGD/colonoscopy Vein stripping 30years ago Vasectomy 30+years ago Reported Medications Reported Meds & Active Scripts Active Diltiazem CD 24 HR 360 Mg Capcr 360 Mg PO DAILY Ferrous Sulfate 325 Mg (65 Mg Iron) Tablet 325 Mg PO TIDPC Digoxin 0.125 Mg Tab 0.125 Mg PO DAILY Eliquis (Apixaban) 5 Mg Tab 5 Mg PO BID start on wednesday 02/21. do not take this any sooner than friday Reported Clindamycin (Clindamycin HCl) 150 Mg Cap 150 Mg PO Q6H Potassium Chloride ER (Potassium Chloride) 20 Meq Tab 20 Meq PO DAILY Albuterol Neb (Albuterol Sulfate) 2.5 Mg/3 Ml Neb 2.5 Mg NEB Q6HR PRN Ventolin Hfa 18 GM Inh (Albuterol Sulfate) 90 Mcg/Act Aer 2 Puff INH Q4HR PRN Clonazepam 1 Mg Tab 1 Mg PO BID Losartan (Losartan Potassium) 100 Mg Tab 100 Mg PO DAILY Lasix (Furosemide) 40 Mg Tab 40 Mg PO BID Cymbalta DR (Duloxetine HCl) 60 Mg Capdr 60 Mg PO DAILY Lantus Inj (Insulin Glargine) 1,000 Unit/10 Ml Vial 80 Units SQ DAILY Novolog Inj (Insulin Aspart) 1,000 Unit/10 Ml Vial 20 Units SQ TID Allergies: Coded Allergies: No Known Allergies (Unverified , 03/05/17) Active Ordered Medications Current Medications Medications (Trade) Dose Ordered Sig/Vania Route Start Time Stop Time Status Last Admin (NS Flush) 2 ml UNSCH PRN IV FLUSH 03/17/17 20:15 (NS Flush) 2 ml BID IV FLUSH 03/17/17 21:00 03/17/17 20:52 (Narcan Inj) 0.4 mg UNSCH PRN IV PUSH 03/17/17 20:15 Family History One brother recently with mesothelioma Denies any other significant family history of heart disease, stroke, or diabetes. Social History Prior tobacco use, quit almost 2 years ago Denies any alcohol use Denies any illicit drug use Physical Exam Vital Signs Vital Signs Date Time Temp Pulse Resp B/P (MAP) Pulse Ox O2 Delivery O2 Flow Rate FiO2 03/18/17 07:22 98.5 111 20 136/74 (94) 91 03/18/17 04:19 87 18 171/69 (103) 96 03/18/17 03:00 108 03/18/17 00:29 98.2 95 18 129/59 (82) 97 03/17/17 23:00 111 03/17/17 21:22 03/17/17 18:55 85 18 158/72 (100) 98 Room Air 4.00 03/17/17 18:46 90 20 97 Nasal Cannula 4.00 03/17/17 16:19 99.4 88 22 142/70 (63) 88 Physical Exam GENERAL: Well-nourished, well-developed morbidly obese male patient in NAD. + Anasarca. SKIN: Warm and dry. No rash. HEAD: Normocephalic. Atraumatic. EYES: Pupils equal and round. No scleral icterus. No injection or drainage. ENT: No nasal bleeding or discharge. Mucous membranes pink and moist. NECK: Supple. Trachea midline. CARDIOVASCULAR: Tachycardic irregularly irregular rhythm. S1, S2 noted. No murmur appreciated. RESPIRATORY: No accessory muscle use. Clear to auscultation. Breath sounds equal bilaterally. GASTROINTESTINAL: Abdomen soft, non-tender, nondistended. Normoactive bowel sounds x4. MUSCULOSKELETAL: No obvious deformities. Bilateral lower extremity with 3+ edema , and diffuse erythema extending up to the mid murguia/calf. NEUROLOGICAL: Awake and alert. No obvious cranial nerve deficits. Motor grossly within normal limits. Moves all extremities spontaneously. Normal speech. PSYCHIATRIC: Appropriate mood and affect; insight and judgment normal. Laboratory Laboratory Tests Test 03/17/17 17:50 03/18/17 00:44 White Blood Count 9.1 Red Blood Count 3.87 Hemoglobin 10.7 Hematocrit 34.1 Mean Corpuscular Volume 88.1 Mean Corpuscular Hemoglobin 27.7 Mean Corpuscular Hemoglobin Concent 31.5 Red Cell Distribution Width 27.1 Platelet Count 208 Mean Platelet Volume 8.1 Neutrophils (%) (Auto) 66.5 Lymphocytes (%) (Auto) 16.0 Monocytes (%) (Auto) 8.6 Eosinophils (%) (Auto) 7.8 Basophils (%) (Auto) 1.1 Neutrophils # (Auto) 6.0 Lymphocytes # (Auto) 1.4 Monocytes # (Auto) 0.8 Eosinophils # (Auto) 0.7 Basophils # (Auto) 0.1 CBC Comment AUTO DIFF Differential Comment AUTO DIFF CONFIRMED Platelet Estimate NORMAL Platelet Morphology Comment NORMAL Tear Drop Cells 1+ Ovalocytes 2+ Prothrombin Time 11.1 Prothromb Time International Ratio 1.1 Activated Partial Thromboplast Time 33.1 Blood Urea Nitrogen 19 Creatinine 1.57 Random Glucose 309 Total Protein 8.1 Albumin 3.5 Calcium Level 8.7 Magnesium Level 1.9 Alkaline Phosphatase 73 Aspartate Amino Transf (AST/SGOT) 25 Alanine Aminotransferase (ALT/SGPT) 32 Total Bilirubin 0.6 Sodium Level 133 Potassium Level 4.2 Chloride Level 97 Carbon Dioxide Level 28.5 Anion Gap 8 Estimat Glomerular Filtration Rate 44 Total Creatine Kinase 119 134 Creatine Kinase MB 1.2 Troponin I LESS THAN 0.02 LESS THAN 0.02 B-Type Natriuretic Peptide 123 Result Diagram: 03/17/17 1750 03/17/17 1750 Imaging Last Impressions Chest X-Ray 03/17/17 1639 Signed Impressions: Service Date/Time: Friday, March 17, 2017 16:53 - CONCLUSION: Moderate congestive failure. Evelio John MD FACR Caprini VTE Risk Assessment Caprini VTE Risk Assessment: Mod/High Risk (score >= 2) Caprini Risk Assessment Model Point Value = 1 Point Value = 2 Point Value = 3 Point Value = 5 Age 41-60 Minor surgery BMI > 25 kg/m2 Swollen legs Varicose veins or History of unexplained or recurrent spontaneous Oral contraceptives or hormone replacement Sepsis (< 1 month) Serious lung disease, including pneumonia (< 1 month) Abnormal pulmonary function Acute myocardial infarction Congestive heart failure (< 1 month) History of inflammatory bowel disease Medical patient at bed rest Age 61-74 Arthroscopic surgery Major open surgery (> 45 min) Laparoscopic surgery (> 45 min) Malignancy Confined to bed (> 72 hours) Immobilizing plaster cast Central venous access Age >= 75 History of VTE Family history of VTE Factor V Leiden Prothrombin [id number] Lupus anticoagulant Anticardiolipin antibodies Elevated serum homocysteine Heparin-induced thrombocytopenia Other congenital or acquired thrombophilia Stroke (< 1 month) Elective arthroplasty Hip, pelvis, or leg fracture Acute spinal cord injury (< 1 month) Prophylaxis Regimen Total Risk Factor Score Risk Level Prophylaxis Regimen 0-1 Low Early ambulation 2 Moderate Order ONE of the following: *Sequential Compression Device (SCD) *Heparin 5000 units SQ BID 3-4 Higher Order ONE of the following medications: *Heparin 5000 units SQ TID *Enoxaparin/Lovenox 40 mg SQ daily (WT < 150 kg, CrCl > 30 mL/min) *Enoxaparin/Lovenox 30 mg SQ daily (WT < 150 kg, CrCl > 10-29 mL/min) *Enoxaparin/Lovenox 30 mg SQ BID (WT < 150 kg, CrCl > 30 mL/min) AND/OR *Sequential Compression Device (SCD) 5 or more Highest Order ONE of the following medications: *Heparin 5000 units SQ TID (Preferred with Epidurals) *Enoxaparin/Lovenox 40 mg SQ daily (WT < 150 kg, CrCl > 30 mL/min) *Enoxaparin/Lovenox 30 mg SQ daily (WT < 150 kg, CrCl > 10-29 mL/min) *Enoxaparin/Lovenox 30 mg SQ BID (WT < 150 kg, CrCl > 30 mL/min) AND *Sequential Compression Device (SCD) Assessment and Plan Problem List: (1) CHF exacerbation ICD Code: I50.9 - Heart failure, unspecified Status: Acute Assessment and Plan 66-year-old male with history of atrial fibrillation on Eliquis, CHF, DM, HTN, anemia with GI bleeding, presents after being referred to the ED by his tight rope walker Dr. Whitt, with a 6 week history of shortness of breath, fluid retention, weight gain. Acute Hypoxic Respiratory Failure: O2 sat 88% upon arrival, patient reports O2 sats of 79% at home. Secondary to significant fluid overload with CHF exacerbation. -treat CHF exacerbation as below -O2 as needed, will need home O2 walk test prior to discharge Acute CHF Exacerbation with Hypoxia: no prior echo in EMR. BNP 123 however unreliable secondary to morbid obesity. Patient with diffuse anasarca and 3+ BLE on exam. 50lbs weight gain in 6weeks. -ACS ruled out with negative serial cardiac enzymes x2 and EKG without acute ischemic changes -Continue diuresis with IV Lasix 40mg bid -Monitor strict Is&Os -Monitor on telemetry -Check lipid panel in am -Continue patient's Eliquis, digoxin, losartan, cardizem -Consider adding BB, unlikely able to start SUZANNE secondary to renal function -Consult patient's tight rope walker Dr. Whitt Atrial Fibrillation with mild RVR: HR tachycardic in the 110s. -Continue patient's cardizem, digoxin, and anticoagulation with Eliquis -Monitor on telemetry Bilateral Lower Extremity Cellulitis: diagnosed as outpatient, patient with + erythema/warmth on exam -continue Clindamycin 300mg q6h -monitor for improvement Diabetes Mellitus, Insulin Dependent: with hyperglycemia upon arrival, BG 309. -Continue patient's home long acting insulin 80u sq qd and Novolog 20u tidac -Monitor accu-checks and cover with SSI -Check HgbA1c Hypertension: chronic, stable -continue patient's home meds including losartan, cardizem -monitor BP, adjust antihypertensives as needed CKD, stage III: Cr 1.57, previously 1.4 in on 03/05/17. -patient unaware of diagnosis of CKD however GFR persistently 40-50 on prior hospitalization -avoid nephrotoxins -outpatient f/up with nephrology DVT Prophylaxis: on Eliquis the above notes was scribed by Ms.Kristine Mccarty ( [facility]). I attest that I had a [id number] encounter with the patient and personally performed the physical exam and medical decision making and reviewed the findings and plan with the patient. Discussed Condition With Patient Problem Qualifiers (1) CHF exacerbation: Qualified Codes: I50.9 - Heart failure, unspecified Prema Mccarty PA-C Mar 18, 2017 07:54 Bernadette Smith MD Mar 18, 2017 09:15
[2017-03-18] MEDS ORDERED: DEXTROSE 50% IN WATER 50 ML VIAL(D50) IV PUSH PRN (08:00)
[2017-03-18] MEDS ORDERED: GLUCAGON 1 MG/ML VIAL OTHER PRN (08:00)
[2017-03-18] MEDS ORDERED: RESP: ALBUTEROL 2.5 MG/IPRATROPIUM 0.5 MG NEB (PRN) NEB (08:00)
[2017-03-18] MEDS: POTASSIUM CHLORIDE 20 MEQ CONTROLLED RELEASE TAB PO SCH (09:38)
[2017-03-18] MEDS: FUROSEMIDE 40 MG/4 ML VIAL IV PUSH SCH ×2 (09:38→18:25)
[2017-03-18] MEDS: INSULIN DETEMIR 100 UNITS/ML VIAL SQ SCH (09:38)
[2017-03-18] MEDS: DIGOXIN 0.125 MG TAB PO SCH (09:39)
[2017-03-18] MEDS: DILTIAZEM-CD 180 MG CAP ER PO SCH (09:39)
[2017-03-18] MEDS: APIXABAN 5 MG TABLET PO SCH ×2 (09:39→21:26)
[2017-03-18] MEDS: LOSARTAN 50 MG TAB PO SCH (09:39)
[2017-03-18] MEDS: CLINDAMYCIN 150 MG CAP PO SCH ×3 (09:39→21:27)
[2017-03-18] MEDS: INSULIN ASPART 1,000 UNITS/10 ML VIAL SQ SCH ×3 (09:40→18:25)
[2017-03-18] MEDS: clonazePAM 1 MG TAB PO SCH ×2 (09:40→21:26)
[2017-03-18] MEDS: FERROUS SULFATE 325 MG (65 MG ELEMENTAL IRON) TAB PO SCH ×3 (09:40→18:25)
[2017-03-18] MEDS: DULoxetine HCl DR 60 MG CAP PO SCH (09:40)
[2017-03-18] MEDS: INSULIN ASPART SUPPLEMENTAL SCALE SQ SCH ×4 (09:41→21:00)
[2017-03-18] MEDS: SODIUM CHLORIDE 0.9% FLUSH 10 ML FLUSH IV FLUSH SCH ×2 (09:41→21:27)
[2017-03-18 09:48] LABS: AUTOMATED NEUTROPHIL # 6.1 TH/MM3 (1.8-7.7); BASOPHIL # 0.1 TH/MM3 (0-0.2); BASOPHIL % 1.4 % (0.0-2.0); EOSINOPHIL # 0.7 TH/MM3 (0-0.4); EOSINOPHIL % 7.6 % (0.0-4.0); HEMATOCRIT 35.2 % (39.0-51.0); LYMPH % 17.1 % (9.0-44.0); LYMPHOCYTE # 1.6 TH/MM3 (1.0-4.8); MEAN CELL VOLUME 87.5 FL (80.0-100.0); MEAN CORPUSCULAR HEMOGLOBIN 27.3 PG (27.0-34.0); MEAN CORPUSCULAR HGB CONC 31.2 % (32.0-36.0); MEAN PLATELET VOLUME 7.9 FL (7.0-11.0); MONOCYTE # 0.7 TH/MM3 (0-0.9); NEUT % 65.9 % (16.0-70.0); PLATELET COUNT 193 TH/MM3 (150-450); RED BLOOD COUNT 4.02 MIL/MM3 (4.50-5.90); RED CELL DISTRIBUTION WIDTH 25.8 % (11.6-17.2); WHITE BLOOD COUNT 9.2 TH/MM3 (4.0-11.0)
[2017-03-18 09:54] LABS: BICARBONATE 28.9 MEQ/L (21.0-32.0); BLOOD UREA NITROGEN 20 MG/DL (7-18); CHLORIDE 96 MEQ/L (98-107); CREATININE 1.54 MG/DL (0.60-1.30); GLOMERULAR FILTRATION RATE 45 ML/MIN (>89); GLUCOSE,RANDOM 313 MG/DL (74-106); SODIUM (NA) 133 MEQ/L (136-145)
[2017-03-18 09:59] LABS: TROPONIN I LESS THAN 0.02 NG/ML (0.02-0.05)
[2017-03-18 10:44] LABS: OVALOCYTES 1+ (NORMAL)
--- NOTE | 2017-03-18 15:10 | ECHRPT ---
Indication: heart failure CONCLUSIONS Normal left ventricular size. The left ventricular systolic function is mildly reduced with an estimated ejection fraction in the range of 45- 50%. [id number] mitral valve regurgitation. There is mild tricuspid valve regurgitation. The estimated pulmonary arterial pressure is 42.5 mmHg. BP: / HR: Rhythm: MEASUREMENTS (Male / Female) Normal Values Technical Quality:Very technically difficult study 2D ECHO LV Diastolic Diameter PLAX 5.5 cm 4.2 - 5.9 / 3.9 - 5.3 cm LV Systolic Diameter PLAX 4.5 cm IVS Diastolic Thickness 1.8 cm 0.6 - 1.0 / 0.6 - 0.9 cm LVPW Diastolic Thickness 1.6 cm 0.6 - 1.0 / 0.6 - 0.9 cm LV Relative Wall Thickness 0.6 RV Internal Dim ED PLAX 4.2 cm M-MODE Aortic Root Diameter MM 4.2 cm LA Systolic Diameter MM 4.9 cm LA Ao Ratio MM 1.2 AV Cusp Separation MM 2.3 cm DOPPLER TR Peak Velocity 285.0 cm/s TR Peak Gradient 32.5 mmHg Right Atrial Pressure 10.0 mmHg Pulmonary Artery Systolic Pressu 42.5 mmHg Right Ventricular Systolic Press 42.5 mmHg FINDINGS LEFT VENTRICLE Normal left ventricular size. The left ventricular systolic function is mildly reduced with an estimated ejection fraction in the range of 45- 50%. RIGHT VENTRICLE Normal right ventricular size and systolic function. LEFT ATRIUM The left atrial size is normal. RIGHT ATRIUM The right atrial size is normal. ATRIAL SEPTUM Normal atrial septal thickness without atrial level shunting by limited color doppler interrogation. AORTA The aortic root and proximal ascending aorta are normal in size on limited imaging. MITRAL VALVE Structurally normal mitral valve. [id number] mitral valve regurgitation. AORTIC VALVE Trileaflet aortic valve. No aortic valve stenosis or regurgitation. TRICUSPID VALVE Structurally normal tricuspid valve. There is mild tricuspid valve regurgitation. The estimated pulmonary arterial pressure is 42.5 mmHg. PULMONARY VALVE No pulmonary valve regurgitation or stenosis. VESSELS The inferior vena cava is normal in size. PERICARDIUM No pericardial effusion. Anthony Pollack MD, FACC, [facility] (Electronically Signed) Final Date:18 March 2017 15:09
--- NOTE | 2017-03-18 15:17 | EKG ---
Date Performed: 03/18/2017 Time Performed: 05:30:22 PTAGE: 66 years EKG: ATRIAL FIBRILLATION POSSIBLE RIGHT VENTRICULAR HYPERTROPHY ABNORMAL ECG PREVIOUS TRACING : 03/17/2017 17.44 Compared to prior tracing no significant change DOCTOR: Daniel Amor Interpretating Date/Time 03/18/2017 15:16:08
--- NOTE | 2017-03-18 15:17 | EKG ---
Date Performed: 03/17/2017 Time Performed: 17:44:34 PTAGE: 66 years EKG: ATRIAL FIBRILLATION WITH ABERRANT CONDUCTION OR VENTRICULAR PREMATURE COMPLEXES INCOMPLETE RIGHT BUNDLE BRANCH BLOCK POSSIBLE RIGHT VENTRICULAR HYPERTROPHY ABNORMAL ECG PREVIOUS TRACING : 03/05/2017 16.03 Compared to prior tracing no significant change DOCTOR: Daniel Amor Interpretating Date/Time 03/18/2017 15:16:26
[2017-03-18 16:27] LABS: HEMOGLOBIN A1C 7.3 % (4.3-6.0)
[2017-03-19] VITALS (9 sets, daily range): BP systolic 114–145; BP diastolic 61–75; PULSE 71–102; RESP 18–21; TEMP 97.7–98; O2SAT 93–96
[2017-03-19] MEDS: CLINDAMYCIN 150 MG CAP PO SCH ×4 (05:17→22:31)
[2017-03-19 08:06] LABS: CHOLESTEROL/ HDL RATIO 2.8 RATIO; HDL CHOLESTEROL 42.5 MG/DL (40.0-60.0)
[2017-03-19] MEDS: DILTIAZEM-CD 180 MG CAP ER PO SCH (09:35)
[2017-03-19] MEDS: APIXABAN 5 MG TABLET PO SCH ×2 (09:36→22:31)
[2017-03-19] MEDS: DULoxetine HCl DR 60 MG CAP PO SCH (09:36)
[2017-03-19] MEDS: clonazePAM 1 MG TAB PO SCH ×2 (09:37→22:31)
[2017-03-19] MEDS: LOSARTAN 50 MG TAB PO SCH (09:37)
[2017-03-19] MEDS: POTASSIUM CHLORIDE 20 MEQ CONTROLLED RELEASE TAB PO SCH (09:37)
[2017-03-19] MEDS: FUROSEMIDE 40 MG/4 ML VIAL IV PUSH SCH ×2 (09:38→18:00)
[2017-03-19] MEDS: SODIUM CHLORIDE 0.9% FLUSH 10 ML FLUSH IV FLUSH SCH ×2 (09:38→22:31)
[2017-03-19] MEDS: FERROUS SULFATE 325 MG (65 MG ELEMENTAL IRON) TAB PO SCH ×3 (09:38→18:35)
[2017-03-19] MEDS: INSULIN ASPART SUPPLEMENTAL SCALE SQ SCH ×4 (09:39→21:00)
[2017-03-19] MEDS: DIGOXIN 0.125 MG TAB PO SCH (09:39)
[2017-03-19] MEDS: INSULIN ASPART 1,000 UNITS/10 ML VIAL SQ SCH ×3 (09:40→18:35)
[2017-03-19] MEDS: INSULIN DETEMIR 100 UNITS/ML VIAL SQ SCH (09:40)
--- NOTE | 2017-03-19 10:08 | HHI.PR ---
Subjective Remarks in no acute distress. sob has improved. overall feeling better. denies chest pain. Objective Vitals Vital Signs Date Time Temp Pulse Resp B/P (MAP) Pulse Ox O2 Delivery O2 Flow Rate FiO2 03/19/17 07:34 97.8 89 18 141/67 (91) 95 03/19/17 03:40 98.0 83 18 114/61 (78) 96 03/18/17 23:54 98.1 105 18 129/77 (94) 95 03/18/17 20:38 98.7 100 18 185/112 (136) 94 03/18/17 20:20 99 03/18/17 16:54 97.8 99 20 138/89 (105) 94 03/18/17 11:40 98.3 102 19 144/68 (93) 94 I/O 03/18/17 03/18/17 03/18/17 03/19/17 03/19/17 03/19/17 07:00 15:00 23:00 07:00 15:00 23:00 Intake Total 250 ml Output Total 1000 ml 800 ml Balance -750 ml -800 ml Intake Oral 250 ml Output Urine Total 1000 ml 800 ml Result Diagram: 03/18/17 0902 03/18/17 0902 Imaging Last Impressions Chest X-Ray 03/17/17 1639 Signed Impressions: Service Date/Time: Friday, March 17, 2017 16:53 - CONCLUSION: Moderate congestive failure. Evelio John MD FACR Objective Remarks GENERAL: This is a well-nourished, well-developed patient, in no apparent distress. CARDIOVASCULAR: Regular rate and regular rhythm without murmurs, gallops, or rubs. RESPIRATORY: Clear to auscultation. Breath sounds equal bilaterally. No wheezes , rales, or rhonchi. GASTROINTESTINAL: Abdomen soft, non-tender, nondistended. Normal, active bowel sounds MUSCULOSKELETAL: Extremities with bilateral pedal edema- seems to be improving. NEURO: Alert & Oriented x4 to person, place, time, situation. Moves all ext x4 Medications and IVs Inpatient Medications Albuterol/ Ipratropium (Duoneb Neb) 1 ampule Q6HR NEB PRN NEB SHORTNESS OF BREATH; Start 03/18/17 at 08:00 Apixaban (Eliquis) 5 mg BID PO Last administered on 03/19/17 09:36; Start 03/18 at 09:00 Clindamycin HCl (Cleocin) 150 mg Q6H PO Last administered on 03/19/17 09:37; Start 03/18/17 at 09:00 Clonazepam (KlonoPIN) 1 mg BID PO Last administered on 03/19/17 09:37; Start 03/18/17 at 09:00 Dextrose (D50w (Vial) Inj) 50 ml UNSCH PRN IV PUSH HYPOGLYCEMIA-SEE COMMENTS; Start 03/18/17 at 08:00 Digoxin (Lanoxin) 0.125 mg DAILY PO Last administered on 03/19/17 09:39; Start 03/18/17 at 09:00 Diltiazem HCl (Cardizem Cd) 360 mg DAILY PO Last administered on 03/19/17 09: 35; Start 03/18/17 at 09:00 Duloxetine HCl (Cymbalta Dr) 60 mg DAILY PO Last administered on 03/19/17 09: 36; Start 03/18/17 at 09:00 Ferrous Sulfate (Ferrous Sulfate) 325 mg TIDPC PO Last administered on 09:38; Start 03/18/17 at 09:30 Furosemide (Lasix Inj) 40 mg BID@18 IV PUSH Last administered on 03/19/17 09:38; Start 03/18/17 at 09:00 Glucagon (Glucagon Inj) 1 mg UNSCH PRN OTHER HYPOGLYCEMIA-SEE COMMENTS; Start 03/18/17 at 08:00 Insulin Aspart (NovoLOG SUPPLEMENTAL SCALE) 1 ACHS SLIDING SCALE SQ Last administered on 03/19/17 09:39; Start 03/18/17 at 08:00 Insulin Aspart (NovoLOG INJ) 20 units TID SQ Last administered on 03/19/17 09: 40; Start 03/18/17 at 09:00 Insulin Detemir (Levemir Inj) 80 units DAILY SQ Last administered on 03/19/17 09:40; Start 03/18/17 at 09:00 Losartan Potassium (Cozaar) 100 mg DAILY PO Last administered on 03/19/17 09: 37; Start 03/18/17 at 09:00 Naloxone HCl (Narcan Inj) 0.4 mg UNSCH PRN IV PUSH SEE LABEL COMMENTS; Start at 20:15 Potassium Chloride (KCl) 20 meq DAILY PO Last administered on 03/19/17at 09:37; Start 03/18/17 at 09:00 Sodium Chloride (NS Flush) 2 ml BID IV FLUSH Last administered on 03/19/17at 09: 38; Start 03/17/17 at 21:00 A/P Assessment and Plan Acute Hypoxic Respiratory Failure: O2 sat 88% upon arrival, patient reports O2 sats of 79% at home. Secondary to significant fluid overload with CHF exacerbation. -treat CHF exacerbation as below -O2 as needed, will need home O2 walk test prior to discharge Acute CHF Exacerbation with Hypoxia: no prior echo in EMR. BNP 123 however unreliable secondary to morbid obesity. Patient with diffuse anasarca and 3+ BLE on exam. 50lbs weight gain in 6weeks. -ACS ruled out with negative serial cardiac enzymes x2 and EKG without acute ischemic changes -Continue diuresis with IV Lasix 40mg bid -Monitor strict Is&Os -Monitor on telemetry -Continue patient's Eliquis, digoxin, losartan, cardizem -Consider adding BB, unlikely able to start SUZANNE secondary to renal function -check BMP tomorrow. -Consulted patient's floor installer Dr. Whitt Atrial Fibrillation with mild RVR: HR tachycardic in the 110s- now improved. -Continue patient's cardizem, digoxin, and anticoagulation with Eliquis -Monitor on telemetry Bilateral Lower Extremity Cellulitis: diagnosed as outpatient, patient with + erythema/warmth on exam -continue Clindamycin 300mg q6h -monitor for improvement Diabetes Mellitus, Insulin Dependent: with hyperglycemia upon arrival, BG 309. -Continue patient's home long acting insulin 80u sq qd and Novolog 20u tidac -Monitor accu-checks and cover with SSI -Check HgbA1c Hypertension: chronic, stable -continue patient's home meds including losartan, cardizem -monitor BP, adjust antihypertensives as needed CKD, stage III: Cr 1.57, previously 1.4 in on 03/05/17. -patient unaware of diagnosis of CKD however GFR persistently 40-50 on prior hospitalization -avoid nephrotoxins -BMP in am -outpatient f/up with nephrology DVT Prophylaxis: on Eliquis Discharge Planning dc home with [facility]- possible tomorrow-if cleared by cardiology. walk test today. Bernadette Smith MD Mar 19, 2017 10:08
[2017-03-19] MEDS ORDERED: BENZOCAINE-MENTHOL (SUGAR FREE) 15 MG-3.6 MG LOZENGE BUCCAL PRN (14:15)
--- NOTE | 2017-03-19 14:16 | HHI.FF ---
Face to Face Verification Diagnosis: (1) CKD (chronic kidney disease), stage III (2) Hypoxia (3) Atrial fibrillation (4) Anticoagulated (5) Cellulitis of both lower extremities (6) CHF exacerbation (7) Diabetes (8) HTN (hypertension) Physical Therapy Order: Evaluate and Treat, Improve ambulation, Strength and gait training Home Health Nursing Order: Medical education Signs/symptoms of disease process CHF education Oxygen administration education Nursing assessment with vital signs I have seen patient Salvatore Macdonald on 03/19/17. My clinical findings support the need for the requested home health care services because: Ltd mobility - disease progression Patient has SOB Deconditioned w/ increased weakness Limited ability to care for self Infection w/ risk of complications I certify that my clinical findings support that this patient is homebound because: Unsteady gait/balance Unsafe to leave home unassisted Unable to use public transportation Prema Mccarty PA-C Mar 19, 2017 2:16 pm
[2017-03-19] MEDS ORDERED: BENZOCAINE-MENTHOL (SUGAR FREE) 15 MG-3.6 MG LOZENGE BUCCAL ONE (15:30)
[2017-03-20] VITALS (21 sets, daily range): BP systolic 121–146; BP diastolic 58–95; PULSE 82–108; RESP 20–21; TEMP 97.7–98.8; O2SAT 93–96
[2017-03-20] MEDS: CLINDAMYCIN 150 MG CAP PO SCH ×3 (03:27→15:26)
[2017-03-20 05:09] LABS: BICARBONATE 31.4 MEQ/L (21.0-32.0); CALCIUM 8.6 MG/DL (8.5-10.1); CREATININE 1.29 MG/DL (0.60-1.30)
[2017-03-20] MEDS: INSULIN ASPART SUPPLEMENTAL SCALE SQ SCH ×3 (07:15→17:00)
[2017-03-20] MEDS: INSULIN ASPART 1,000 UNITS/10 ML VIAL SQ SCH ×3 (09:00→18:00)
[2017-03-20] MEDS: INSULIN DETEMIR 100 UNITS/ML VIAL SQ SCH (09:00)
[2017-03-20] MEDS: DILTIAZEM-CD 180 MG CAP ER PO SCH (09:48)
[2017-03-20] MEDS: DIGOXIN 0.125 MG TAB PO SCH (09:48)
[2017-03-20] MEDS: APIXABAN 5 MG TABLET PO SCH (09:51)
[2017-03-20] MEDS: FUROSEMIDE 40 MG/4 ML VIAL IV PUSH SCH (09:51)
[2017-03-20] MEDS: clonazePAM 1 MG TAB PO SCH (09:52)
[2017-03-20] MEDS: DULoxetine HCl DR 60 MG CAP PO SCH (09:52)
[2017-03-20] MEDS: FERROUS SULFATE 325 MG (65 MG ELEMENTAL IRON) TAB PO SCH ×3 (09:52→18:02)
[2017-03-20] MEDS: POTASSIUM CHLORIDE 20 MEQ CONTROLLED RELEASE TAB PO SCH (09:52)
[2017-03-20] MEDS: LOSARTAN 50 MG TAB PO SCH (09:52)
[2017-03-20] MEDS: SODIUM CHLORIDE 0.9% FLUSH 10 ML FLUSH IV FLUSH SCH (09:53)
--- NOTE | 2017-03-20 13:03 | HHI.PR ---
Subjective Remarks Feeling better Objective Vital Signs Date Time Temp Pulse Resp B/P (MAP) Pulse Ox O2 Delivery O2 Flow Rate FiO2 03/20/17 12:57 96 Nasal Cannula 4.00 03/20/17 12:56 98.3 88 20 137/63 (87) 96 03/20/17 10:00 108 03/20/17 10:00 94 Nasal Cannula 4.00 03/20/17 09:00 103 03/20/17 08:00 101 03/20/17 07:18 93 Nasal Cannula 4.00 03/20/17 07:18 98.5 105 20 146/95 (112) 93 03/20/17 07:00 105 03/20/17 06:01 100 03/20/17 04:01 105 03/20/17 03:55 97.7 94 20 137/60 (85) 95 03/20/17 03:55 95 03/20/17 02:14 99 03/20/17 01:23 88 03/20/17 00:35 91 03/20/17 00:34 97.9 88 21 130/59 (82) 96 03/19/17 23:46 87 03/19/17 22:00 88 03/19/17 21:15 98.0 86 21 145/75 (98) 95 03/19/17 21:00 90 03/19/17 16:44 98.0 71 18 140/66 (90) 93 03/19/17 13:10 4.00 I/O 03/19/17 03/19/17 03/19/17 03/20/17 03/20/17 03/20/17 06:59 14:59 22:59 06:59 14:59 22:59 Intake Total 240 ml Output Total 1200 ml 950 ml Balance -1200 ml -710 ml Intake Oral 240 ml Output Urine Total 1200 ml 950 ml # Bowel Movements 0 Result Diagram: 03/18/17 0902 03/20/17 0322 Imaging Alert, fully oriented Lungs: ventilated Heart: S1, S2 regular, no gallop Abdomen: obese, no mass ext: no edema Last Impressions Chest X-Ray 03/17/17 1639 Signed Impressions: Service Date/Time: Friday, March 17, 2017 16:53 - CONCLUSION: Moderate congestive failure. Evelio John MD FACR Current Medications Medications (Trade) Dose Ordered Sig/Vania Route Start Time Stop Time Status Last Admin (NS Flush) 2 ml UNSCH PRN IV FLUSH 03/17/17 20:15 (NS Flush) 2 ml BID IV FLUSH 03/17/17 21:00 03/20/17 09:53 (Narcan Inj) 0.4 mg UNSCH PRN IV PUSH 03/17/17 20:15 (Eliquis) 5 mg BID PO 03/18/17 09:00 03/20/17 09:51 (KlonoPIN) 1 mg BID PO 03/18/17 09:00 03/20/17 09:52 (Cardizem Cd) 360 mg DAILY PO 03/18/17 09:00 03/20/17 09:48 (Cymbalta Dr) 60 mg DAILY PO 03/18/17 09:00 03/20/17 09:52 (Ferrous Sulfate) 325 mg TIDPC PO 03/18/17 09:30 03/20/17 09:52 (NovoLOG INJ) 20 units TID SQ 03/18/17 09:00 03/20/17 12:53 (Levemir Inj) 80 units DAILY SQ 03/18/17 09:00 03/19/17 09:40 (Cozaar) 100 mg DAILY PO 03/18/17 09:00 03/20/17 09:52 (KCl) 20 meq DAILY PO 03/18/17 09:00 03/20/17 09:52 (D50w (Vial) Inj) 50 ml UNSCH PRN IV PUSH 03/18/17 08:00 (Glucagon Inj) 1 mg UNSCH PRN OTHER 03/18/17 08:00 (NovoLOG SUPPLEMENTAL SCALE) 1 ACHS SLIDING SCALE SQ 03/18/17 08:00 03/20/17 12:00 (Duoneb Neb) 1 ampule Q6HR NEB PRN NEB 03/18/17 08:00 (Cleocin) 300 mg Q6H PO 03/19/17 15:00 03/20/17 09:52 (Cepacol Extra Maday (Sugar Free)) 1 lozenge Q2HR PRN BUCCAL 03/19/17 14:15 Assessment and Plan Problem List: (1) Atrial fibrillation ICD Codes: I48.91 - Unspecified atrial fibrillation Plan: Back into sinus rhythm. already feeling better Digoxin DC Can be DH Follow up in 3 weeks (2) CHF exacerbation ICD Codes: I50.9 - Heart failure, unspecified Status: Acute Plan: Normal EF (3) Hypoxia ICD Codes: R09.02 - Hypoxemia Plan: Doing better Ambulating Problem Qualifiers (1) CHF exacerbation: Qualified Codes: I50.9 - Heart failure, unspecified Lefty Whitt MD Mar 20, 2017 13:03
--- NOTE | 2017-03-20 13:17 | MB ---
cc: SERGIO CAMACHO M.D. DATE OF CONSULTATION: 03/19/2017 HISTORY OF PRESENT ILLNESS Mr. Macdonald is a 66-year-old gentleman, severely morbid obesity, shortness of breath, congestive heart failure symptom with a normal ejection fraction, atrial fibrillation with biventricular response, was seen at the emergency room due to atrial fibrillation, shortness of breath. He has a previous hospitalization due to GI bleeding. He is on anticoagulation for the past 3-4 weeks. I was consulted for evaluation and management. The chart was reviewed. The patient was evaluated. ALLERGIES None. SOCIAL HISTORY Negative for smoking and drinking. FAMILY HISTORY Noncontributory to his current medical condition. MEDICATIONS Mr. Macdonald is on: 1. Eliquis 5 mg a day. 2. Cleocin 300 mg q. 6 hours. 3. Klonopin 1 mg twice a day. 4. Digoxin 0.125 mg a day. 5. Cardizem CD 260 mg a day. 6. Lasix. 7. Insulin. 8. Losartan. REVIEW OF SYSTEMS Currently the patient refers no chest pain. Shortness of breath on minimal activity but no vomiting, no fever. PHYSICAL EXAMINATION GENERAL: Alert, fully oriented. VITAL SIGNS: Blood pressure on evaluation 146/66, pulse around 90, irregular. LUNGS: Ventilated. CARDIOVASCULAR: S1-S2, irregular. Distant heart sound. ABDOMEN: Soft, obese. No mass. EXTREMITIES: Minimal edema. Possible cellulitis. ELECTROCARDIOGRAM Atrial fibrillation with biventricular response, diffuse ST changes. LABORATORY DATA Hemoglobin 11.0, white blood cell 9.2, potassium 3.8, creatinine 1.29. ASSESSMENT AND RECOMMENDATIONS Mr. Macdonlad has atrial fibrillation. He is on anticoagulation. It is very difficult to control his heart rate. He has a normal ejection fraction. He has had heart failure symptoms. Also, he has severe morbid obesity. I did have a long conversation with him and his as usual. The gentleman is not a good candidate for ablation. At this point my recommendation is cardioversion. Discharge the patient home. If necessary and back in atrial fibrillation, rate cannot be controlled, then ablation will be considered. I will keep the patient n.p.o. for cardioversion tomorrow. MD MIC Loja/THEODORE /12:47 PM /1:01 PM
[2017-03-20] MEDS ORDERED: OXYGENDME NAS.CANULA (15:01)
--- NOTE | 2017-03-20 15:23 | HHI.DS ---
Discharge Summary Admission Date Mar 18, 2017 at 07:59 Discharge Date: Mar 20, 2017 Admitting Diagnosis CHF exacerbation (1) CHF exacerbation ICD Code: I50.9 - Heart failure, unspecified Status: Acute Procedures Cardioversion Brief History - From Admission Written by Prema Mccarty, acting as scribe for Dr. Smith on 03/18/17 at 07: 47. 66-year-old male with history of atrial fibrillation on Eliquis, CHF, DM, HTN, anemia with GI bleeding, presents with a 6 week history of shortness of breath, fluid retention, weight gain. The patient reports he was seen by his guide winder Dr. Whitt yesterday in the office and was sent straight to the hospital. He states he has been very short of breath for awhile now. He has worsening dyspnea on exertion. He states he can only walk a few feet without becoming dyspneic. He endorses significant orthopnea and paroxysmal nocturnal dyspnea. He reports checking his pulse ox at home when he becomes short of breath and it will drop to 79%. He does not wear oxygen at home. He also reports increasing leg swelling and fluid retention. He was started on clindamycin a few days ago for lower extremity cellulitis. He reports a 50lbs weight gain in the past 6 weeks. He denies any chest pain, cough, congestion, fevers, or chills. He has been taking lasix 40mg once daily except dose was recently increased to twice a day over the past 3 days. He has no other medical complaints to report at this time. CBC/BMP: 03/18/17 0902 03/20/17 0322 Significant Findings Laboratory Tests Test 03/17/17 17:50 03/18/17 00:44 03/18/17 09:02 03/19/17 06:53 Red Blood Count 3.87 MIL/MM3 (4.50-5.90) 4.02 MIL/MM3 (4.50-5.90) Hemoglobin 10.7 GM/DL (13.0-17.0) 11.0 GM/DL (13.0-17.0) Hematocrit 34.1 % (39.0-51.0) 35.2 % (39.0-51.0) Mean Corpuscular Hemoglobin Concent 31.5 % (32.0-36.0) 31.2 % (32.0-36.0) Red Cell Distribution Width 27.1 % (11.6-17.2) 25.8 % (11.6-17.2) Monocytes (%) (Auto) 8.6 % (0.0-8.0) Eosinophils (%) (Auto) 7.8 % (0.0-4.0) 7.6 % (0.0-4.0) Eosinophils # (Auto) 0.7 TH/MM3 (0-0.4) 0.7 TH/MM3 (0-0.4) Tear Drop Cells 1+ (NORMAL) Ovalocytes 2+ (NORMAL) 1+ (NORMAL) Activated Partial Thromboplast Time 33.1 SEC (24.3-30.1) Blood Urea Nitrogen 19 MG/DL (7-18) 20 MG/DL (7-18) Creatinine 1.57 MG/DL (0.60-1.30) 1.54 MG/DL (0.60-1.30) Random Glucose 309 MG/DL (74-106) 313 MG/DL (74-106) Sodium Level 133 MEQ/L (136-145) 133 MEQ/L (136-145) Chloride Level 97 MEQ/L (98-107) 96 MEQ/L (98-107) Estimat Glomerular Filtration Rate 44 ML/MIN (>89) 45 ML/MIN (>89) Troponin I LESS THAN 0.02 NG/ML LESS THAN 0.02 NG/ML LESS THAN 0.02 NG/ML B-Type Natriuretic Peptide 123 PG/ML (0-100) Hemoglobin A1c 7.3 % (4.3-6.0) Cholesterol Level 119 MG/DL (120-200) Test 03/20/17 03:22 Blood Urea Nitrogen 22 MG/DL (7-18) Random Glucose 115 MG/DL (74-106) Chloride Level 97 MEQ/L (98-107) Estimat Glomerular Filtration Rate 56 ML/MIN (>89) PE at Discharge GENERAL: This is a well-nourished, well-developed patient, in no apparent distress. CARDIOVASCULAR: Regular rate and regular rhythm without murmurs, gallops, or rubs. RESPIRATORY: Clear to auscultation. Breath sounds equal bilaterally. No wheezes , rales, or rhonchi. GASTROINTESTINAL: Abdomen soft, non-tender, nondistended. Normal, active bowel sounds MUSCULOSKELETAL: Extremities with bilateral pedal edema- seems to be improving. NEURO: Alert & Oriented x4 to person, place, time, situation. Moves all ext x4 Hospital Course Mr. Macdonald is a 66-year-old male. He was admitted secondary to A. fib RVR. He also has been dealing with a right lower extremity and left lower extremity cellulitis with a right lower extremity wound. He was treated with oxygen while here in medical management did not cause resolution of his A. fib RVR. He had cardioversion performed this morning which is put him back into sinus rhythm. He's been cleared by cardiology for discharge to home. Cellulitis is under control and he'll continue antibiotics and home health care for wound management regarding this. Oxygen supplementation was determined to be necessary based on his persisting hypoxia and he will discharge home with oxygen. Medically stable for discharge home today. Pt Condition on Discharge: Stable Discharge Disposition: Disch w/ Home Health Serv Discharge Time: <= 30 minutes Discharge Instructions DIET: Follow Instructions for: Heart Healthy Diet Activities you can perform: Regular-No Restrictions Follow up Referrals: Cardiology @ [facility] with Lefty Whitt MD New Medications: Oxygen (O2) (Oxygen (O2)) Device LITER TIKA.CANULA CONTINUOUS for Prevent Hypoxemia, #2 Oxygen Concentrator Portable Gaseous 2 L/min via Nasal Canula Continuous For 99 months Continued Medications: Albuterol 18 GM Inh (Ventolin Hfa 18 GM Inh) 90 Mcg/Act Aer 2 PUFF INH Q4HR PRN for SHORTNESS OF BREATH, #1 INHALER 0 Refills Albuterol Neb (Albuterol Neb) 2.5 Mg/3 Ml Neb 2.5 MG NEB Q6HR PRN for SHORTNESS OF BREATH, #1 NEBULE 0 Refills Apixaban (Eliquis) 5 Mg Tab 5 MG PO BID for Blood Clot Prevention, #60 TAB 0 Refills start on wednesday 02/21. do not take this any sooner than friday Clindamycin (Clindamycin) 150 Mg Cap 150 MG PO Q6H for Infection, CAP 0 Refills Clonazepam (Clonazepam) 1 Mg Tab 1 MG PO BID, #60 TAB 0 Refills Digoxin (Digoxin) 0.125 Mg Tab 0.125 MG PO DAILY for Regulate Heart Beat, #30 TAB 0 Refills Diltiazem CD 24 HR (Diltiazem CD 24 HR) 360 Mg Capcr 360 MG PO DAILY for heart, #30 CAP [address] (Cymbalta DR) 60 Mg Capdr 60 MG PO DAILY, #30 CAP 0 Refills Ferrous Sulfate (Ferrous Sulfate) 325 Mg (65 Mg Iron) Tablet 325 MG PO TIDPC for Nutritional Supplement, #90 TAB 0 Refills Furosemide (Lasix) 40 Mg Tab 40 MG PO BID, #60 TAB 0 Refills Insulin Aspart Inj (Novolog Inj) 1,000 Unit/10 Ml Vial 20 UNITS SQ TID for Blood Sugar Management, #10 ML 0 Refills Insulin Glargine Inj (Lantus Inj) 1,000 Unit/10 Ml Vial 80 UNITS SQ DAILY for Blood Sugar Management, VIAL 0 Refills Losartan (Losartan) 100 Mg Tab 100 MG PO DAILY for Blood Pressure Management, #30 TAB 0 Refills Potassium Chloride ER (Potassium Chloride ER) 20 Meq Tab 20 MEQ PO DAILY for Electrolyte Replacement, #30 TAB 0 Refills Stephen Chen MD Mar 20, 2017 15:23
--- NOTE | 2017-03-21 14:21 | EKG ---
Date Performed: 03/20/2017 Time Performed: 11:47:58 PTAGE: 66 years EKG: Normal Sinus rhythm with first degree AV block Abnormal ECG PREVIOUS TRACING : 03/18/2017 05.30 DOCTOR: Anthony Pollack Interpretating Date/Time 03/21/2017 14:20:00
--- NOTE | 2017-03-22 13:42 | PQ ---
Physician Query Response Document PATIENT: MARBELLA KLEIN : 1950 ADMIT DATE: 03/18/2017 7:59 AM DISCH DATE: 03/20/2017 8:25 PM RESPONDING PROVIDER #: [email or web address] QUERY TEXT: CHF Acuity and Type Congestive Heart Failure EXACERBATION is documented in the Medical Record. Please document the TYPE ( includes probable or suspected) Such as: Type: -- Systolic -- Diastolic -- Combined -- Other, please specify Please call [facility] @ [facility] [phone] for assistance. Thank you! The patient's Clinical Indicators include: Acute CHF Exacerbation with Hypoxia: no prior echo in EMR. BNP 123 however unreliable secondary to mo rbid obesity. Patient with diffuse anasarca and 3+ BLE on exam. 50lbs weight gain in 6weeks. 03/18/16: ECHO Normal left ventricular size. The left ventricular systolic function is mildly reduced with an estimated ejection fraction in the r jaya of 45- 50%. Query created by: Mare Estrada on 03/20/2017 9:35 AM RESPONSE TEXT: Acute on chronic systolic CHF. Electronically signed by: Bernadette Smith MD 03/22/2017 1:38 PM
== END 2017-03-20 20:25 | disposition home health service (06) | DRG 291 ==
LOC: NEPE 16:16 → NEDA 20:15 → NEPHCDU 21:43 → OBSVTOIN 03-18 07:59 → HCPC 03-19 18:21 → NEPHCDU 03-19 18:21 → N07B 03-19 19:56 → NEPHCDU 03-19 19:57 → HCPC 03-19 21:15
PROVIDERS: ADMIT Hospitalist; ATTEND Hospitalist
PROC: 5A2204Z Restoration of Cardiac Rhythm, Single (ICD-10-PCS; principal; 2017-03-20)
DX: I50.23 Acute on chronic systolic (congestive) heart failure (principal); J96.01 Acute respiratory failure with hypoxia; L03.115 Cellulitis of right lower limb; L03.116 Cellulitis of left lower limb; Z68.43 Body mass index [BMI] 50.0-59.9, adult; E11.65 Type 2 diabetes mellitus with hyperglycemia; E11.22 Type 2 diabetes mellitus with diabetic chronic kidney disease; Z79.4 Long term (current) use of insulin; I13.0 Hypertensive heart and chronic kidney disease with heart failure and stage 1 through stage 4 chronic kidney disease, or unspecified chronic kidney disease; N18.3 Chronic kidney disease, stage 3 (moderate); E66.01 Morbid (severe) obesity due to excess calories; I48.91 Unspecified atrial fibrillation; Z79.02 Long term (current) use of antithrombotics/antiplatelets; D50.0 Iron deficiency anemia secondary to blood loss (chronic); Z87.891 Personal history of nicotine dependence
CPT/HCPCS: 71046; 80048; 80053; 80061; 82550; 82552; 82948; 83036; 83735; 83880; 84484; 85025; 85610; 85730; 93005; 93306; 94618; 96374; G0378; G8987-GP; G8988-GP; J1815; J1940

== ENCOUNTER 2017-05-06 06:56 | Day surgery (SDC) | payer OTHER ==
[2017-05-06] VITALS (9 sets, daily range): BP systolic 111–156; BP diastolic 56–82; PULSE 77–84; RESP 18–20; TEMP 97.6–98.3; O2SAT 94–95
[~2017-05-06] VITALS: Ht 182.9 cm; Wt 170.0 kg
[~2017-05-06 06:56] MED LIST changes: +CLIN150C14 PO; -DOCU8.6T PO; +OXYGENDME NAS.CANULA; +POTA-163 PO
[2017-05-06] MEDS ORDERED: POVIDONE IODINE 5% (ANTISEPSIS KIT) 4 APPLICATIONS EACH NARE PRN (07:30)
[2017-05-06] MEDS ORDERED: SODIUM CHLORID 0.9% 500 ML IV PRN (07:30)
[2017-05-06] MEDS ORDERED: CHLORHEXIDINE GLUCONATE 2 % 1 PACK (2 CLOTHS) TOPICAL PRN (07:30)
[2017-05-06] MEDS ORDERED: LORazepam 1 MG TAB SL SCH (07:30)
[2017-05-06] MEDS ORDERED: LACTATED RINGER'S 1000 ML IV PRN (07:30)
[2017-05-06] MEDS ORDERED: SODIUM CHLORID 0.9% 500 ML INJ 500 ML IV SCH (07:30)
[2017-05-06] MEDS ORDERED: METOPROLOL TARTRATE 25 MG TAB PO PRN (07:30)
[2017-05-06] MEDS ORDERED: BUME1TAB PO (07:40)
[2017-05-06] MEDS ORDERED: OMEP20TA93 PO (07:40)
[2017-05-06 07:45] LABS: AUTOMATED NEUTROPHIL # 8.3 TH/MM3 (1.8-7.7); BASOPHIL # 0.1 TH/MM3 (0-0.2); BASOPHIL % 0.8 % (0.0-2.0); EOSINOPHIL # 0.9 TH/MM3 (0-0.4); EOSINOPHIL % 7.2 % (0.0-4.0); HEMATOCRIT 36.2 % (39.0-51.0); HEMOGLOBIN 11.9 GM/DL (13.0-17.0); LYMPH % 16.7 % (9.0-44.0); MEAN CELL VOLUME 88.2 FL (80.0-100.0); MEAN CORPUSCULAR HGB CONC 32.9 % (32.0-36.0); MEAN PLATELET VOLUME 7.5 FL (7.0-11.0); MONO % 7.3 % (0.0-8.0); MONOCYTE # 0.9 TH/MM3 (0-0.9); PLATELET COUNT 227 TH/MM3 (150-450); RED CELL DISTRIBUTION WIDTH 16.5 % (11.6-17.2); WHITE BLOOD COUNT 12.2 TH/MM3 (4.0-11.0)
[2017-05-06 07:54] LABS: INTERNATIONAL NORMALIZED RATIO 1.1 RATIO; PROTHROMBIN TIME - PATIENT 11.1 SEC (9.8-11.6)
[2017-05-06 07:59] LABS: BICARBONATE 30.8 MEQ/L (21.0-32.0); CALCIUM 9.5 MG/DL (8.5-10.1); CREATININE 1.25 MG/DL (0.60-1.30)
[2017-05-06] MEDS ORDERED: HEPARIN-NS/PF FLUSH BAG 3,000 ML IV FLUSH ONE (08:01)
[2017-05-06] MEDS ORDERED: LEVOFLOXACIN 500 MG PREMIX INJ 100 ML IV ONE (08:01)
[2017-05-06] MEDS ORDERED: HEPARIN-D5W 25,000 U/250 ML 250 ML ONE (09:23)
[2017-05-06] MEDS ORDERED: HEPARIN SODIUM - IV 10,000 UNITS/10 ML VIAL ONE ×2 (09:23→11:00)
[2017-05-06] MEDS ORDERED: PROTAMINE SULFATE 50 MG/5 ML VIAL ONE ×2 (09:25→11:59)
[2017-05-06] MEDS ORDERED: FUROSEMIDE 40 MG/4 ML VIAL ONE (11:44)
[2017-05-06] MEDS ORDERED: PHENYLEPH/NS 1000 MCG/10 ML SYR IV ONE (12:00)
[2017-05-06] MEDS ORDERED: ROCURONIUM INJ 50 MG/5 ML SYRINGE IV PUSH ONE (12:00)
[2017-05-06] MEDS ORDERED: ePHEDrine/NS 25 MG/5 ML SYRINGE IV ONE (12:00)
[2017-05-06] MEDS ORDERED: DEXAMETHASONE SOD PHOS 4 MG/ML VIAL IV ONE (12:00)
[2017-05-06] MEDS ORDERED: LIDOCAINE HCL 1% PF 5 ML SYRINGE OTHER ONE (12:00)
[2017-05-06] MEDS ORDERED: ONDANSETRON HCL 4 MG/2 ML VIAL IV ONE (12:00)
[2017-05-06] MEDS ORDERED: PROPOFOL 200 MG/20 ML AMP IV ONE (12:00)
--- NOTE | 2017-05-06 12:31 | CATHPROC ---
[facility] HIS Report Study Information Study Number Admission Scheduled Start Study Start [id number] May 06 2017 6:56AM 05/06/2017 May 06 2017 7:33AM [facility] Service Electrophysiology Study Admit Source Facility Department Other [facility] Physician and Clinical Staff Initial Lefty Nuñez Video Specialist Angelic Beltre,RT(R) TECH2 Video Specialist Ermelinda Espinal,SWITCHBOARD RECEPTIONIST Other Anesthesia, RESERVATIONS AND TICKETING AGENT Recorder Nga Benjamin,JALEN Recorder Luba Morales BSN Scrub Wilmar Molina,RT(R) Procedures Performed Procedure Location (Site) Vessel Name Ablation Procedure Cardioversion RF Ablation LT. ATRIUM LT. ATRIUM Equipment Time Hot Stick Man Description Size Mfg Part Number Used/Scraped NEEDLE, TRANSSEPTAL NRG 98 [id number] 08:27 [employer] Used C1 *[id number] [employer]/ EP [id number] 08:27 KIT, TRANSDUCER / AFIB Used PACER *[id number] CATHETER, TACTICATH ABLAT BUNDLE 08:27 BUNDLE-[facility] Used 65 BUNDLE *[id number] BUNDLE [id number] CATHETER, FR7 OPTIMA SPIRAL 08:27 BUNDLE-[facility] FR7 *[id number]- Used BUNDLE BUNDLE [id number] 08:27 BUNDLE-[employer] [employer] CATHETER, JSN, QUAD BUNDLE FR 5 *[id number]- Used BUNDLE [id number] 08:27 BUNDLE-[employer] CATHETER, JSN, QUAD BUNDLE FR 5 *[id number]- Used BUNDLE [id number] SET, COOL POINT TUBING 08:27 BUNDLE-[employer] *[id number]- Used BUNDLE BUNDLE SHEATH, FR8.5 STEERABLE SM 08:27 BUNDLE-[facility] 71CM [id number] Used 71CM BUNDLE COVER, TRANSDUCER CABLE 612-113 08:27 [employer] Used ACUNAV *[id number] 08:27 CORDIS/PACER SHEATH, FR9 TASHI 11CM FR 9 [id number] Used [id number] 08:27 [employer] PACK, CCL CUSTOM * Used *[id number] 08:27 MEDLINE PACER ORTIZ, LIMB * 7560 *[id number] Used [id number] 08:27 [employer] MEDICAL SHEATH, FR4.5 PRELUDE 11CM FR 4.5 Used [id number] 08:27 NAMIC TUBING, HIGH PRESSURE 48" 48" Used *[id number] 08:27 NAMIC TUBING, HIGH PRESSURE 48" 48" Used *[id number] 08:27 [employer] BLANKET,WARM AIR CCL * Used *[id number] 08:27 [facility] MEDICAL ELECTRODE KIT, ADDIE X SURFACE * Used *[id number] 08:27 [facility] [employer] MEDICAL SHEATH, EPS, FR6 FAST CATH FR 6 Used *[id number] 08:27 [facility] [employer] MEDICAL SHEATH, EPS, FR7 FAST CATH FR 7 [id number] Used [id number] 08:27 [facility] [employer] MEDICAL SHEATH, EPS, FR8 FAST CATH FR 8 Used *[id number] [employer] 09:19 SHEATH, FR10 TURUMO FR 10 [id number] Used COMPANY [facility] PAD, ELECTROSURGICAL 08:27 * [id number] *[id number] Used SURGICAL GROUNDING (BLUE) History: Allergies Allergy Reaction No Known Allergies History: Risk Factors Hypertension Dyslipidemia Previous Heart Failure Yes Yes Yes Chronic Lung Diabetes Disease Labs Hgb (g/dl) Hct (%) RBC (MIL/MM3) WBC (l/cumm) Platelets (thousands) 11.60-17.00 35.00-51.00 4.00-5.90 4.00-11.00 150.00-450.00 11.0 36 4.1 12 227 Glucose (mg/dl) BUN (mg/dl) Creatinine (mg/dl) BUN:Creatinine (1:x) 74.00-106.00 7.00-18.00 0.50-1.30 10.00-20.00 194 20 1.2 16.7 Na (meq/l) K (meq/l) 136.00-145.00 3.50-5.10 136 4 INR (PTT:PT) 0.90-1.10 1.1 Medication Medication Total Dose (Bolus/Oral) Medication Total Dosage/Unit 1% XYLOCAINE 40 mL HEPARIN 33640 units PROTAMINE 60 mg Medications (Bolus/Oral) Medication Time Given Dosage/Unit Administered By Reason 1% XYLOCAINE 05/06/2017 10:01:19 AM 20 mL Lefty Whitt 20 mL 1% XYLOCAINE given in lab by Lefty Whitt in Left Groin via Subcutaneous. 1% XYLOCAINE 05/06/2017 10:04:15 AM 20 mL Lefty Whitt 20 mL 1% XYLOCAINE given in lab by Lefty Whitt in Right Groin via Subcutaneous. HEPARIN 05/06/2017 10:17:33 AM 38039 units Anesthesia, RESERVATIONS AND TICKETING AGENT As per physicians v erbal order 94383 units HEPARIN given in lab by Anesthesia, RESERVATIONS AND TICKETING AGENT via Peripheral IV. Ordered by Lefty Whitt. [place] son: As per physicians verbal order. HEPARIN 05/06/2017 10:32:37 AM 4000 units Anesthesia, RESERVATIONS AND TICKETING AGENT As per physicians v erbal order 4000 units HEPARIN given in lab by Anesthesia, RESERVATIONS AND TICKETING AGENT via Peripheral IV. Ordered by Lefty Whitt. Reas on: As per physicians verbal order. HEPARIN 05/06/2017 10:47:38 AM 3000 units Anesthesia, RESERVATIONS AND TICKETING AGENT As per physicians v erbal order 3000 units HEPARIN given in lab by Anesthesia, RESERVATIONS AND TICKETING AGENT via Peripheral IV. Ordered by Lefty Whitt. Reas on: As per physicians verbal order. HEPARIN 05/06/2017 11:01:30 AM 4000 units Anesthesia, RESERVATIONS AND TICKETING AGENT As per physicians v erbal order 4000 units HEPARIN given in lab by Anesthesia, RESERVATIONS AND TICKETING AGENT via Peripheral IV. Ordered by Lefty Whitt. Reas on: As per physicians verbal order. HEPARIN 05/06/2017 11:14:04 AM 2000 units Anesthesia, RESERVATIONS AND TICKETING AGENT As per physicians v erbal order 2000 units HEPARIN given in lab by Anesthesia, RESERVATIONS AND TICKETING AGENT via Peripheral IV. Ordered by Lefty Whitt. Reas on: As per physicians verbal order. PROTAMINE 05/06/2017 11:52:39 AM 40 mg Anesthesia, RESERVATIONS AND TICKETING AGENT As per physicians natalya bal order 40 mg PROTAMINE given in lab by Anesthesia, RESERVATIONS AND TICKETING AGENT via Peripheral IV. Ordered by Lefty Whitt. Reason: As per physicians verbal order. PROTAMINE 05/06/2017 12:01:33 PM 20 mg Anesthesia, RESERVATIONS AND TICKETING AGENT As per physicians natalya bal order 20 mg PROTAMINE given in lab by Anesthesia, RESERVATIONS AND TICKETING AGENT via Peripheral IV. Ordered by Lefty Whitt. Reason: As per physicians verbal order. Medication (Drip) Medication Time Given Dosage/Unit Concentration/Unit Diluent (ml) Solution HEPARIN DRIP 05/06/2017 10:33:40 AM 1000 units/hr 00713 units 250 D5W 1000 units/hr HEPARIN DRIP given in lab by Anesthesia, RESERVATIONS AND TICKETING AGENT via Peripheral IV. Pump/Drip Flow = 10 ml /hr using [place] [address] units in 250 ml. Ordered by Lefty Whitt. Reason: As per physicians verbal order. ISUPREL 05/06/2017 11:28:12 AM 20 mcg/min 1 mg 250 NaCl .9 20 mcg/min ISUPREL given in lab by Anesthesia, RESERVATIONS AND TICKETING AGENT via Peripheral IV. Pump/Drip Flow = 300 ml/hr usi ng NaCl .9 with a concentration of 1 mg in 250 ml. Ordered by Lefty Whitt. Reason: As per physicians verbal order. LEVAQUIN 05/06/2017 9:54:31 AM 100 mL/hr 500 100 NaCl .9 100 mL/hr LEVAQUIN given in lab by Anesthesia, RESERVATIONS AND TICKETING AGENT via Peripheral IV. Pump/Drip Flow = 0 ml/hr using NaCl .9 with a concentration of 500 in 100 ml. Ordered by Lefty Whitt. Reason: As per physicians verbal order. Initial Case Assessment Cardiovascular HR Rhythm NIBP Chest Pain 81 af 155/66 0 Edema Present Skin color Skin None Normal Warm Dry Circulatory - Right Pulses Dorsalis Pedis 1 Scale (0,1,2,3,4,d) Circulatory - Left Pulses Dorsalis Pedis 1 Scale (0,1,2,3,4,d) Circulatory - Lower Extremities Color Lower Right Color Lower Left Normal Normal Neurological State Oriented to time-place- Alert Moves all extremities person Respiration - General Respiration Rate SpO2 (%) (B/min) 20 93 Final Case Assessment Cardiovascular HR Rhythm NIBP Chest Pain 83 sr 167/74 0 Edema Present Skin color Skin None Normal Warm Dry Circulatory - Right Pulses Dorsalis Pedis 1 Scale (0,1,2,3,4,d) Circulatory - Left Pulses Dorsalis Pedis 1 Scale (0,1,2,3,4,d) Circulatory - Lower Extremities Color Lower Right Color Lower Left Normal Normal Neurological State Lethargic Moves all extremities Respiration - General Respiration Rate SpO2 (%) O2 (lpm) (B/min) 18 92 4 Chronological Log Time Study Chronological Log 8:49:06 Patient arrived via Bed. 8:49:07 Patient Name, D.O.B, / Armband Verified By R.N. 8:49:08 Consent signed by the physician and the patient and verified by the [facility] staff. 8:49:08 Pre-op and post- op instructions given; patient acknowledges understanding of instructions. 8:49:09 Verbal Stimulation=2 Physical Stimulation=2 Airway=2 Respiration=2 TOTAL=8. (0=absent, 1=li mited, 2=present) 8:49:20 Patient has been NPO for More than 6Hrs. 8:49:21 Skin Breakdown- generalized scabs to lower extremities. 8:49:22 Patient Warmer Placed on the Table. 8:49:23 Disposable Defibrillator Pads Placed On Patient. 8:49:25 Adriana Prominences Protected 8:49:26 A # 20 IV was noted in the Forearm (left). Grade = 0 0.9ns kvo 8:49:26 A # 20 IV was noted in the Forearm (right). Grade = 0 0.9ns kvo 8:49:27 History and physical on the chart or being dictated. Assessment: Initial Case, HR=81 BPM, Rhythm=af, MTRW=559/66 mmhg, Chest Pain=0, Edema=None, Col or=Normal, Skin = Warm, Dry Right Pulses: Toby Ped=1 Left Pulses: Toby Ped=1 9:10:23 Lower Right Extremities: Color=Normal Lower Left Extremities: Color=Normal Neurological: State=Alert, Ox3, GALARZA Respiration: Resp=20 B/min, SpO2=93 % 9:15:35 Anesthesia at bedside. Assumes care of patient. Aracely/Dilip 9:16:13 Reference ECG taken 9:16:25 Table restraints applied according to hospital policy 9:28:37 MD arrived. 9:30:10 Anesthesiologist present for intubation. 14 Fr aldana iserted w/o difficulty. Clear yellow ur ine obtained. 9:35:29 Bilateral groins prepped with 2% chlorhexidine, and draped after a 3 minute waiting time. 100 mL/hr LEVAQUIN given in lab by Anesthesia, RESERVATIONS AND TICKETING AGENT via Peripheral IV. Pump/Drip Flow = 0 ml/hr using NaCl .9 with 9:54:31 a concentration of 500 in 100 ml. Ordered by Lefty Whitt. Reason: As per physicians verbal or errol. Time Out. Correct patient, procedure, procedure equipment, site and side verified with physicia n present. Time 9:58:00 concurred by MD, individual staff and RESERVATIONS AND TICKETING AGENT. Time Out #2 - Consents verified, patient in correct position, all results are labled and displa yed, safety precautions 9:58:25 taken, antibiotics administered. Time out concurred by MD, individual staff and RESERVATIONS AND TICKETING AGENT in procedu re 9:58:48 Case Start 9:58:50 Aramis in progress. 10:00:45 Aramis complete. 10:01:19 20 mL 1% XYLOCAINE given in lab by Lefty Whitt in Left Groin via Subcutaneous. 10:01:44 Vascular access was obtained in the Fem Vein (left). 10:01:48 Vascular access was obtained in the Fem Vein (left). 10:01:55 Vascular access was obtained in the Fem Vein (left). 10:02:03 Vascular access was obtained in the Fem Art (left). A SHEATH, FR4.5 PRELUDE 11CM FR 4.5 was advanced into the Fem Art (left) using the Modified Rufina annie technique. 10:02:22 0.9ns pressure bag connected. 10:02:59 A SHEATH, EPS, FR6 FAST CATH FR 6 was advanced into the Fem Vein (left) using the Modified Seldinger technique. 10:03:07 A SHEATH, EPS, FR7 FAST CATH FR 7 was advanced into the Fem Vein (left) using the Modified Seldinger technique. 10:03:15 A SHEATH, FR10 TURUMO FR 10 was advanced into the Fem Vein (left) using the Modified Seldin maurisio technique. 10:04:15 20 mL 1% XYLOCAINE given in lab by Lefty Whitt in Right Groin via Subcutaneous. 10:06:00 Vascular access was obtained in the Fem Vein (right). 10:06:37 A SHEATH, FR10 TURUMO FR 10 was advanced into the Fem Vein (right) using the Modified Seldi nger technique. A CATHETER, JSN, QUAD BUNDLE FR 5 was advanced vis Fem Vein (left) and placed in the CS. Placem ent was visually 10:08:30 confirmed under fluoroscopy. A CATHETER, JSN, QUAD BUNDLE FR 5 was advanced vis Fem Vein (left) and placed in the HIS. Place ment was 10:09:13 visually confirmed under fluoroscopy. A SHEATH, FR8.5 STEERABLE SM 71CM BUNDLE 71CM was exchanged in the Fem Vein (right). This was n ecessary in 10:12:59 order for catheter support. 10:15:34 [place] [address] units HEPARIN given in lab by Anesthesia, RESERVATIONS AND TICKETING AGENT via Peripheral IV. Ordered by Veronica Whitt Reason: As per 10:17:33 physicians verbal order. 10:17:45 A eps was advanced to the right atrium and passed through the septal wall to the left atriu m. 10:17:49 [place] out A CATHETER, FR7 OPTIMA SPIRAL BUNDLE FR7 was advanced vis Fem Vein (right) and placed in the LA . Placement 10:18:45 was visually confirmed under fluoroscopy. Mapping in progress 10::30 Activated Clotting Time Drawn 10:31:18 ACT (Normal Range 90-180) = 253 10:31:57 Mapping complete. Catheter was removed A CATHETER, TACTICATH ABLAT 65 BUNDLE was advanced vis Fem Vein (right) and placed in the LA. P lacement was 10:32:13 visually confirmed under fluoroscopy. 10:32:29 RF Ablation of the LT. ATRIUM with a CATHETER, TACTICATH ABLAT 65 BUNDLE. 4000 units HEPARIN given in lab by Anesthesia, RESERVATIONS AND TICKETING AGENT via Peripheral IV. Ordered by Lefty Whitt Reason: As per 10:32:37 physicians verbal order. 1000 units/hr HEPARIN DRIP given in lab by Anesthesia, RESERVATIONS AND TICKETING AGENT via Peripheral IV. Pump/Drip Flow = 10 ml/hr using 10:33:40 D5[place] [address] units in 250 ml. Ordered by Hanscy. Jose Eduardo Reason: As per phoebe galo verbal order. 10:41:12 Activated Clotting Time Drawn 10:47:31 ACT (Normal Range 90-180) = 310 3000 units HEPARIN given in lab by Anesthesia, RESERVATIONS AND TICKETING AGENT via Peripheral IV. Ordered by Lefty Whitt Reason: As per 10:47:38 physicians verbal order. 10:52:27 Activated Clotting Time Drawn 10:59:57 ACT (Normal Range 90-180) = 299 4000 units HEPARIN given in lab by Anesthesia, RESERVATIONS AND TICKETING AGENT via Peripheral IV. Ordered by Lefty Whitt Reason: As per 11:01:30 physicians verbal order. 11:08:00 Activated Clotting Time Drawn 11:13:55 ACT (Normal Range 90-180) = 339 2000 units HEPARIN given in lab by Anesthesia, RESERVATIONS AND TICKETING AGENT via Peripheral IV. Ordered by Lefty Whitt Reason: As per 11:14:04 physicians verbal order. 11:20:16 Activated Clotting Time Drawn 11:26:21 ACT (Normal Range 90-180) = 349 11:27:18 ECG rhythm of AF noted. Patient cardioverted at 300 joules. Success 20 mcg/min ISUPREL given in lab by Anesthesia, SPENCER via Peripheral IV. Pump/Drip Flow = 300 ml/ hr using NaCl .9 11:28:12 with a concentration of 1 mg in 250 ml. Ordered by Lefty Whitt. Reason: As per physicians natalya bal order. 11:38:57 Isuprel off. 11:39:17 Catheter(s) removed without difficulty. A SHEATH, FR9 TASHI 11CM FR 9 was exchanged in the Fem Vein (right). This was necessary in ord er to achieve 11:39:34 vascular hemostasis. 11:39:49 Heparin off. 11:40:05 Ablation procedure performed: AFIB. 11:40:14 EP Procedure was performed. 11:41:06 PACU called. Spoke to Angelic. 11:41:36 Bedside Report will be given. 11:42:13 Defibrillator and ground pads removed. Skin intact. 40 mg PROTAMINE given in lab by Anesthesia, RESERVATIONS AND TICKETING AGENT via Peripheral IV. Ordered by Lefty Whitt. R chio: As per 11:52:39 physicians verbal order. 11:53:59 Activated Clotting Time Drawn 11:56:20 Activated Clotting Time Drawn 11:57:28 ACT (Normal Range 90-180) = 210 20 mg PROTAMINE given in lab by Anesthesia, RESERVATIONS AND TICKETING AGENT via Peripheral IV. Ordered by Lefty Whitt. R chio: As per 12:01:33 physicians verbal order. 12:03:18 Pt extubated. 12:06:29 Activated Clotting Time Drawn 12:08:11 ACT (Normal Range 90-180) = 163 12:09:03 Right groin venous sheath removed; pressure applied to access site by DB. 12:10:25 Left groin Arterial sheath removed; pressure applied to access site by HH. 12:10:47 Case End 12:21:22 Left groin venous sheaths removed; pressure applied to access sites by HH. 12:26:53 No case complications noted. 12:26:55 Cine recording checked. 12:27:20 Sterile dressing applied to right groin. Site wnl. Assessment: Final Case, HR=83 BPM, Rhythm=sr, WYEI=465/74 mmhg, Chest Pain=0, Edema=None, [place] r=Normal, Skin = Warm, Dry Right Pulses: Toby Ped=1 Left Pulses: Toby Ped=1 12:29:23 Lower Right Extremities: Color=Normal Lower Left Extremities: Color=Normal Neurological: State=Lethargic, GALARZA Respiration: Resp=18 B/min, SpO2=92 %, O2=4 lpm 12:42:35 Sterile dressing applied to left groin. Site [facility]. 12:45:59 Patient moved to stretcher End Study - Contrast Media Used In Study Contrast Total Opened (mL) Total Used (mL) Total Wasted (mL) Unspecified 0 0 0 End Study - Maximum Contrast Load Max Contrast Load (mL) 693.0 End Study - Radiation Exposure Fluoro Time (minutes) 2.4 End Study - Patient Disposition Complications Transferred To Interventional Outcome No Telemetry Bed successful
[2017-05-06] MEDS ORDERED: DO NOT ADM ANY ANTICOAGULANT DRUGS PRN (12:55)
--- NOTE | 2017-05-06 14:29 | PD.CARD ---
Atrial Fibrillation Ablation PROCEDURE DATE: May 06, 2017 PROCEDURES PERFORMED: 1. Electrophysiology study on Isuprel infusion 2. CS cannulation 3. 3-D mapping 4. Transseptal approach 5. Right and left heart catheterization 6. Intracardiac echo 7. Radiofrequency ablation of atrial fibrillation 8. Pulmonary vein isolation 9. Posterior wall ablation 10. Mitral valve isolation 11. Mitral line creation 12. Left atrial tachycardia ablation 13. Roof line creation 14. Floor line creation 15. Anterior wall ablation 16. Cardioversion INDICATIONS FOR THE PROCEDURE Mr. Macdonald is a 66-year-old male with atrial fibrillation with multiple hospitalization, very symptomatic, on anticoagulation, referred for electrophysiology study and ablation. The risks, the nature and the benefits of the procedure were clearly stated to him. The risks include pneumothorax, cardiac perforation, stroke, need for open heart surgery and even . The patient understood and agreed to proceed. DESCRIPTION OF THE PROCEDURE IN DETAIL As written informed consent was obtained prior to esophageal echocardiogram, the patient was kept on the table where he was prepped and draped in the usual sterile fashion. Conscious sedation was initiated and maintained throughout the procedure by the anesthesiologist. Once sedation was verified, the right and left inguinal areas were anesthetized with 2% Xylocaine. Using modified Seldinger technique, the left femoral vein was cannulated on three occasions, three guidewires were advanced. Over the wire a 6, 7 and a 10-Cymraes Hemaquet were advanced. Then the left femoral artery was cannulated on one occasion, one guidewire was advanced. Over the wire a 4-Cymraes Hemaquet was advanced. Then the right femoral vein was cannulated on one occasion, one guidewire was advanced. Over the wire a 8-Cymraes Hemaquet was advanced. Then under fluoroscopic guidance through the 6 and 7-Cymraes Hemaquet, two 5-Cymraes Sheldon curved quadripolar electrophysiology catheters were advanced and placed around the His as well as coronary sinus. Basic interval was measured. The patient was in atrial fibrillation. Through the 10-Cymraes Hemaquet, a Cordis Elliott AcuNav intracardiac echo catheter was advanced and placed at the right atrium. Multiple view was obtained. There was no pericardial effusion, pulmonary vein was seen, atrial septal was visualized. Then the 8-Cymraes Hemaquet in the right femoral vein was exchanged for Agilis transseptal sheath that was placed all the way to the superior vena cava. Through the sheath a Chris needle was advanced, then the sheath, the dilator and the needle were progressed until foci engaged. Once engaged, the needle was advanced. RF was delivered for 2 seconds. I was able to cross into the left atrium. Once the needle crossed, the dilator was advanced. Once the dilator crossed, the sheath was advanced. Once the sheath crossed, the dilator and the needle were removed. At this point I did flood the system and fluid movement was seen in the left atrium the indicates the sheath is in good position. The patient already received 10,000 units of heparin. The goal is to keep an ACT around 350 during ablation. Then through the sheath a St. Ramin 20 pulse circumferential catheter was advanced. Using [employer] endocardial solution mapping system, a two-dimensional configuration of the left atrium was obtained. Points were taken at the left superior and inferior veins, right superior and inferior veins, mitral valve, and appendages. Then through the sheath a St. Ramin TactiCath 65cm 3.5mm irrigated tipped mapping and radiofrequency ablation catheter was advanced. Esophageal probe was placed temperature monitoring during ablation. When it increased to 0.5 degrees Celsius above baseline, I moved to a different area of the atrium. First I did isolate the left superior and inferior vein. I did make a big hughes around the veins. Posterior was ablated.Patient was in left atrial tachycardia. Then a roof line was created, a floor line was created, a mitral line was isolated, then the mitral valve was isolated. I did create a line from the floor to the roof area, passing by the left atrial appendage. Then the right superior and inferior veins were isolated. I did remap the atrium. There is no significant signal in the atrium. At this point I decided to proceed with cardioversion. A 200 sync biphasic joule was delivered that converted the patient into sinus rhythm. At that point I did advance the circumferential catheter again into the vein. There was no signal into the vein, pacing from the vein showed no conduction to the atrium. Isuprel infusion was initiated at 20 mcg for 10 minutes. No tachyarrhythmia was induced, post Isuprel no tachyarrhythmia was induced. At that point the procedure was complete. All catheters were removed, atrial septal sheath was exchanged for 9-Cymraes Hemaquet, intracardiac echo showed no pericardial effusion. There is still good flow in the pulmonary vein. The patient is going to be transferred to the recovery room. No incident report. The patient tolerated the procedure. Blood loss was minimal. FINDINGS 1. Electrocardiogram: At baseline the patient was in atrial fibrillation, post procedure the patient was in sinus rhythm. 2. Basic interval: Base cycle length was around 520. Post ablation she was around 980 milliseconds. 3. Tachyarrhythmia: Atrial fibrillation was mapped and ablated. Atrial tachycardia was ablated. The ablation was successful. CONCLUSION Successful electrophysiology study, mapping, radiofrequency ablation of atrial fibrillation, left atrial tachycardia, pulmonary vein isolation, posterior ablation, mitral valve isolation, mitral line creation, roof line creation, floor line creation, left atrial tachycardia, and cardioversion. COMMENTS AND RECOMMENDATIONS The patient is going to be transferred to the telemetry unit. Will be observed and when stable can be discharged home. Lefty Whitt MD May 06, 2017 14:29
[2017-05-06] MEDS ORDERED: LORazepam 2 MG/ML VIAL IV PUSH PRN (14:30)
[2017-05-06] MEDS ORDERED: BACITRACIN OINT 0.9 GM PKT TOP ONE (14:30)
[2017-05-06] MEDS ORDERED: SODIUM CHLOR 0.9% 250 ML INJ 250 ML IV PRN (14:30)
[2017-05-06] MEDS ORDERED: oxyCODONE/ACETAMINOPHEN 5 MG/325 MG TAB PO PRN ×2 (14:30)
[2017-05-06] MEDS ORDERED: LIDOCAINE HCL 1% 20 ML VIAL INFIL PRN (14:30)
[2017-05-06] MEDS ORDERED: ATROPINE SULFATE 1 MG/ML VIAL IV PUSH PRN (14:30)
[2017-05-06] MEDS ORDERED: *morphine SULFATE 4 MG/ML PERIprocedure ONLY ONE ×2 (16:05→16:33)
[2017-05-06] MEDS: FERROUS SULFATE 325 MG (65 MG ELEMENTAL IRON) TAB PO SCH (17:57)
[2017-05-06] MEDS: FUROSEMIDE 40 MG TAB PO SCH (17:57)
[2017-05-06] MEDS: AMIODARONE 200 MG TAB PO SCH (17:57)
[2017-05-06] MEDS: INSULIN ASPART 1,000 UNITS/10 ML VIAL SQ SCH (17:58)
[2017-05-06] MEDS: ONDANSETRON HCL 4 MG/2 ML VIAL IV PUSH PRN ×2 (18:23→22:46)
[2017-05-06] MEDS: clonazePAM 1 MG TAB PO SCH (21:13)
[2017-05-06] MEDS: APIXABAN 5 MG TABLET PO SCH (21:13)
--- NOTE | 2017-05-06 21:56 | EKG ---
Date Performed: 05/06/2017 Time Performed: 07:48:14 PTAGE: 66 years EKG: Atrial fibrillation. Right bundle branch block Abnormal ECG PREVIOUS TRACING : 03/20/2017 11.47 Compared to prior tracing, SR no longer present DOCTOR: Julia Jerome Interpretating Date/Time 05/06/2017 21:56:11
[2017-05-07] VITALS (10 sets, daily range): BP systolic 137–144; BP diastolic 62–69; PULSE 80–92; RESP 18–20; TEMP 97.9–98.2; O2SAT 94–95
[2017-05-07 05:46] LABS: INTERNATIONAL NORMALIZED RATIO 1.1 RATIO; PROTHROMBIN TIME - PATIENT 10.8 SEC (9.8-11.6)
[2017-05-07] MEDS ORDERED: AMIO200T PO ×2 (08:15)
--- NOTE | 2017-05-07 08:19 | PD.CARD.PN ---
Subjective Subjective Remarks Feels ok Objective Medications Current Medications Medications (Trade) Dose Ordered Sig/Vania Route Start Time Stop Time Status Last Admin (Lopressor) 25 mg REPAIRER ART OBJECTS PRN PO 05/06/17 07:30 05/09/17 07:29 (Betadine 5% Antisepsis Kit) 1 applic REPAIRER ART OBJECTS PRN EACH NARE 05/06/17 07:30 05/09/17 07:29 (Chlorhexidine 2% Cloth) 3 pack REPAIRER ART OBJECTS PRN TOPICAL 05/06/17 07:30 05/09/17 07:29 (Ativan) 1 mg REPAIRER ART OBJECTS SL 05/06/17 07:30 05/09/17 07:29 (Percocet 5-325 Mg) 1 tab Q4H PRN PO 05/06/17 14:30 05/06/17 22:40 (Percocet 5-325 Mg) 2 tab Q4H PRN PO 05/06/17 14:30 05/06/17 17:55 (Ativan Inj) 0.5 mg UNSCH PRN IV PUSH 05/06/17 14:30 05/07/17 14:29 (Atropine Inj) 0.5 mg UNSCH PRN IV PUSH 05/06/17 14:30 Sodium Chloride 250 ml @ 500 mls/hr ONCE PRN IV 05/06/17 14:30 05/07/17 14:29 (Zofran Inj) 4 mg Q4H PRN IV PUSH 05/06/17 14:30 05/06/17 22:46 (Xylocaine 1% Inj) 10 ml UNSCH PRN INFIL 05/06/17 14:30 05/07/17 14:29 (Eliquis) 5 mg BID PO 05/06/17 21:00 05/06/17 21:13 (Bumetanide) 1 mg DAILY PO 05/07/17 09:00 (KlonoPIN) 1 mg BID PO 05/06/17 21:00 05/06/17 21:13 (Cymbalta Dr) 60 mg DAILY PO 05/07/17 09:00 (Ferrous Sulfate) 325 mg TIDPC PO 05/06/17 18:30 05/06/17 17:57 (Lasix) 40 mg BID@0900,1800 PO 05/06/17 18:00 05/06/17 17:57 (NovoLOG INJ) 20 units TID SQ 05/06/17 18:00 05/06/17 17:58 (Lantus Inj) 80 units DAILY SQ 05/07/17 09:00 (Cozaar) 100 mg DAILY PO 05/07/17 09:00 (Protonix) 20 mg DAILY PO 05/07/17 09:00 (Cordarone) 400 mg TID PO 05/06/17 18:00 05/13/17 13:01 05/06/17 17:57 Miscellaneous Information ALL NURSING DEPARTME... UNSCH PRN .XX 05/06/17 12:55 05/07/17 12:54 (Cordarone) 200 mg DAILY PO 05/14/17 09:00 Vital Signs / I&O Vital Signs Date Time Temp Pulse Resp B/P (MAP) Pulse Ox O2 Delivery O2 Flow Rate FiO2 05/07/17 08:00 88 05/07/17 07:00 98.0 91 20 144/69 (94) 94 05/07/17 07:00 91 05/07/17 06:00 89 05/07/17 05:00 92 05/07/17 04:00 90 05/07/17 04:00 98.2 83 20 137/62 (87) 95 05/07/17 03:00 89 05/07/17 02:00 90 05/07/17 01:00 87 05/07/17 00:00 97.9 85 18 142/67 (92) 95 05/07/17 00:00 80 05/06/17 23:00 82 05/06/17 22:00 80 05/06/17 21:00 84 05/06/17 20:00 80 05/06/17 20:00 97.8 84 20 136/63 (87) 95 05/06/17 19:00 84 05/06/17 18:00 82 05/06/17 17:01 78 05/06/17 16:58 97.6 77 20 111/56 (74) 95 05/06/17 16:58 77 05/06/17 16:45 79 14 120/56 (77) 95 Nasal Cannula 5 05/06/17 16:30 78 14 127/58 (81) 95 Nasal Cannula 5 05/06/17 16:15 77 14 110/54 (72) 95 Nasal Cannula 5 05/06/17 16:00 79 14 111/55 (73) 94 Nasal Cannula 5 05/06/17 15:45 78 14 114/59 (77) 94 Nasal Cannula 5 05/06/17 15:30 78 14 105/55 (72) 95 Nasal Cannula 5 05/06/17 15:15 79 14 111/56 (74) 93 Nasal Cannula 5 05/06/17 15:00 78 14 99/52 (68) 94 Nasal Cannula 5 05/06/17 14:45 79 14 91/51 (64) 93 Nasal Cannula 5 05/06/17 14:30 79 14 89/50 (63) 93 Nasal Cannula 5 05/06/17 14:15 81 14 111/57 (75) 92 Nasal Cannula 5 05/06/17 14:00 83 14 108/55 (72) 92 Nasal Cannula 5 05/06/17 13:45 80 14 107/57 (74) 92 Nasal Cannula 5 05/06/17 13:30 83 14 123/56 (78) 92 Nasal Cannula 5 05/06/17 13:15 86 14 121/56 (77) 91 Nasal Cannula 5 05/06/17 12:54 98.3 88 14 144/66 (92) 93 Simple Mask 8 I/O 05/06/17 05/06/17 05/06/17 05/07/17 05/07/17 05/07/17 07:00 15:00 23:00 07:00 15:00 23:00 Intake Total 100 ml 720 ml 150 ml Output Total 375 ml Balance 100 ml 720 ml -225 ml Intake Oral 720 ml 150 ml IV Total 100 ml Output Urine Total 375 ml # Bowel Movements 3 Physical Exam GENERAL: Well-nourished, well-developed patient. SKIN: Warm and dry. Groin sites soft with no bruising or bleeding. HEAD: Normocephalic. EYES: No scleral icterus. No injection or drainage. NECK: Supple, trachea midline. No JVD or lymphadenopathy. CARDIOVASCULAR: Regular rate and rhythm without murmurs, gallops, or rubs. RESPIRATORY: Breath sounds equal bilaterally. No accessory muscle use. GASTROINTESTINAL: Abdomen soft, non-tender, nondistended. EXTREMITIES: No cyanosis, or edema. NEUROLOGICAL: Awake, alert, and oriented x 3. Non-focal. Laboratory Laboratory Tests Test 05/07/17 04:42 Prothrombin Time 10.8 SEC Prothromb Time International Ratio 1.1 RATIO Activated Partial Thromboplast Time 28.2 SEC Assessment and Plan Problem List: (1) S/P ablation of atrial fibrillation ICD Codes: Z98.890 - Other specified postprocedural states; Z86.79 - Personal history of other diseases of the circulatory system Plan: DC home. F/U with Dr. Whitt in 3 weeks per my d/w him. (2) Atrial fibrillation ICD Codes: I48.91 - Unspecified atrial fibrillation Plan: NSR on telemetry. Fabiola Daniels May 07, 2017 08:19
[2017-05-07] MEDS: AMIODARONE 200 MG TAB PO SCH (08:52)
[2017-05-07] MEDS: FERROUS SULFATE 325 MG (65 MG ELEMENTAL IRON) TAB PO SCH (08:52)
[2017-05-07] MEDS: clonazePAM 1 MG TAB PO SCH ×2 (08:53→08:55)
[2017-05-07] MEDS: APIXABAN 5 MG TABLET PO SCH (08:53)
[2017-05-07] MEDS: INSULIN ASPART 1,000 UNITS/10 ML VIAL SQ SCH (08:53)
[2017-05-07] MEDS: FUROSEMIDE 40 MG TAB PO SCH (08:54)
[2017-05-07] MEDS ORDERED: DILTIAZEM-CD 180 MG CAP ER PO SCH (09:00)
[2017-05-07] MEDS ORDERED: INSULIN GLARGINE 1,000 UNITS/10 ML VIAL SQ SCH (09:00)
[2017-05-07] MEDS ORDERED: BUMETANIDE 1 MG TAB PO SCH (09:00)
[2017-05-07] MEDS ORDERED: INSULIN DETEMIR 100 UNITS/ML VIAL SQ SCH (09:00)
[2017-05-07] MEDS ORDERED: PANTOPRAZOLE SOD 20 MG DELAYED RELEASE TAB PO SCH (09:00)
[2017-05-07] MEDS ORDERED: DULoxetine HCl DR 60 MG CAP PO SCH (09:00)
[2017-05-07] MEDS ORDERED: LOSARTAN 50 MG TAB PO SCH (09:00)
--- NOTE | 2017-05-07 11:38 | EKG ---
Date Performed: 05/06/2017 Time Performed: 13:18:13 PTAGE: 66 years EKG: Sinus rhythm WITH SINUS ARRHYTHMIA WITH FIRST DEGREE AV BLOCK BORDERLINE RIGHT AXIS DEVIATION MODERATE INTRAVENTR ICULAR CONDUCTION DELAY ABNORMAL ECG PREVIOUS TRACING : 05/06/2017 07.48 Since the prior tracing, sinus rhythm with AV block has rep laced atrial fibrillation. DOCTOR: Jovi Taylor Interpretating Date/Time 05/07/2017 11:53:21
--- NOTE | 2017-05-07 11:49 | EKG ---
Date Performed: 05/07/2017 Time Performed: 06:15:44 PTAGE: 66 years EKG: Sinus rhythm with 1st degree A-V block Septal T wave changes are nonspecific Abnormal ECG PREVIOUS TRACING : 05/06/2017 13.18 Since the prior tracing, there has been no significant dooley DOCTOR: Jovi Taylor Interpretating Date/Time 05/07/2017 11:53:38
[2017-05-14] MEDS ORDERED: AMIODARONE 200 MG TAB PO SCH (09:00)
== END 2017-05-07 09:40 | disposition home or self-care (01) ==
LOC: HDOC 06:56 → HDIC 06:56 → HCPC 16:40 → HDOC 05-07 09:40
PROVIDERS: ATTEND Internal Medicine Interventional Cardiology
DX: I48.0 Paroxysmal atrial fibrillation (principal); I47.1 Supraventricular tachycardia; I48.92 Unspecified atrial flutter; I50.9 Heart failure, unspecified; E11.9 Type 2 diabetes mellitus without complications; E78.5 Hyperlipidemia, unspecified; R06.02 Shortness of breath; E66.9 Obesity, unspecified; Z68.43 Body mass index [BMI] 50.0-59.9, adult; Z79.4 Long term (current) use of insulin
CPT/HCPCS: 00537; 80048; 85002; 85025; 85610; 85730; 86850; 86900; 86901; 92960; 93005; 93312; 93320; 93325; 93613; 93623; 93656; 93662; C1730; C1731; C1732; C1759; C1766; C2630; J1100; J1644; J1815; J1940; J1956; J2270; J2370; J2405; J2720; J3010; J7040

== ENCOUNTER 2017-07-09 13:27 | Day surgery (SDC) | payer OTHER ==
[~2017-07-09] VITALS: Ht 182.9 cm; Wt 164.0 kg
[~2017-07-09 13:27] MED LIST changes: -ALBU0.08 NEB; +AMIO200T PO; +BUME1TAB PO; -CLIN150C14 PO; +DEXAMETHASONE SOD PHOS 4 MG/ML VIAL IV ONE; -DIGO0.12 PO; -DILT360C12 PO; +GLYCOPYRROLATE 1 MG/5 ML SYRINGE IV PUSH ONE; +NEOSTIGMINE 5 MG/5 ML SYRINGE IV PUSH ONE; +OMEP20TA93 PO; +ONDANSETRON HCL 4 MG/2 ML VIAL IV ONE; -OXYGENDME NAS.CANULA; +PHENYLEPH/NS 1000 MCG/10 ML SYR IV ONE; +PHENYLEPHRINE HCL 10 MG/ML VIAL IV ONE; -POTA-163 PO; +ROCURONIUM INJ 50 MG/5 ML SYRINGE IV PUSH ONE; +SODIUM CHLOR 0.9% 250 ML INJ 250 ML IV ONE; +SODIUM CHLORID 0.9% 500 ML INJ 500 ML IV ONE; +SUCCINYLCHOLINE CHLORIDE 100 MG/5 ML SYRINGE IV PUSH ONE; -VENTAER INH; +ePHEDrine/NS 25 MG/5 ML SYRINGE IV ONE
[2017-07-09] MEDS ORDERED: DIGO0.12 PO (13:59)
[2017-07-09] MEDS ORDERED: DILT-46 PO (13:59)
[2017-07-09] MEDS ORDERED: ALBU1.25 NEB (13:59)
[2017-07-09 14:01] VITALS: BP 162/88; PULSE 102; RESP 20; TEMP 97.8; O2SAT 95
[2017-07-09 14:04] LABS: AUTOMATED NEUTROPHIL # 7.7 TH/MM3 (1.8-7.7); BASOPHIL # 0.1 TH/MM3 (0-0.2); BASOPHIL % 0.9 % (0.0-2.0); EOSINOPHIL # 0.9 TH/MM3 (0-0.4); EOSINOPHIL % 8.5 % (0.0-4.0); HEMATOCRIT 35.6 % (39.0-51.0); HEMOGLOBIN 11.5 GM/DL (13.0-17.0); LYMPH % 14.2 % (9.0-44.0); LYMPHOCYTE # 1.6 TH/MM3 (1.0-4.8); MEAN CELL VOLUME 89.7 FL (80.0-100.0); MEAN CORPUSCULAR HGB CONC 32.4 % (32.0-36.0); MEAN PLATELET VOLUME 8.3 FL (7.0-11.0); MONOCYTE # 0.7 TH/MM3 (0-0.9); NEUT % 70.4 % (16.0-70.0); PLATELET COUNT 224 TH/MM3 (150-450); RED BLOOD COUNT 3.97 MIL/MM3 (4.50-5.90); RED CELL DISTRIBUTION WIDTH 15.1 % (11.6-17.2)
[2017-07-09 14:13] LABS: PROTHROMBIN TIME - PATIENT 10.4 SEC (9.8-11.6)
[2017-07-09] MEDS: SODIUM CHLORID 0.9% 500 ML INJ 500 ML IV SCH (14:15)
[2017-07-09] MEDS ORDERED: LORazepam 1 MG TAB SL SCH (14:15)
[2017-07-09 14:22] LABS: BICARBONATE 29.2 MEQ/L (21.0-32.0); CALCIUM 9.2 MG/DL (8.5-10.1); CREATININE 1.41 MG/DL (0.60-1.30)
[2017-07-09] MEDS ORDERED: METOPROLOL TARTRATE 25 MG TAB PO PRN (14:30)
[2017-07-09] MEDS ORDERED: SODIUM CHLORID 0.9% 500 ML IV PRN (14:30)
[2017-07-09] MEDS ORDERED: POVIDONE IODINE 5% (ANTISEPSIS KIT) 4 APPLICATIONS EACH NARE PRN (14:30)
[2017-07-09] MEDS ORDERED: LACTATED RINGER'S 1000 ML IV PRN (14:30)
[2017-07-09] MEDS ORDERED: CHLORHEXIDINE GLUCONATE 2 % 1 PACK (2 CLOTHS) TOPICAL PRN (14:30)
[2017-07-09] MEDS ORDERED: LEVOFLOXACIN 500 MG PREMIX INJ 100 ML IV ONE (17:27)
[2017-07-09] MEDS ORDERED: HEPARIN-D5W 25,000 U/250 ML 250 ML ONE (17:28)
[2017-07-09] MEDS ORDERED: HEPARIN SODIUM - IV 10,000 UNITS/10 ML VIAL ONE (18:07)
[2017-07-09] MEDS ORDERED: FUROSEMIDE 40 MG/4 ML VIAL ONE (19:08)
[2017-07-09] MEDS ORDERED: ONDANSETRON HCL 4 MG/2 ML VIAL IV PUSH PRN (19:15)
[2017-07-09] MEDS ORDERED: LORazepam 2 MG/ML VIAL IV PUSH PRN (19:15)
[2017-07-09] MEDS ORDERED: SODIUM CHLOR 0.9% 250 ML INJ 250 ML IV PRN (19:15)
[2017-07-09] MEDS ORDERED: LIDOCAINE HCL 1% 50 ML VIAL INFIL PRN (19:15)
[2017-07-09] MEDS ORDERED: ATROPINE SULFATE 1 MG/ML VIAL IV PUSH PRN (19:15)
[2017-07-09] MEDS ORDERED: oxyCODONE/ACETAMINOPHEN 5 MG/325 MG TAB PO PRN (19:15)
[2017-07-09] MEDS ORDERED: BACITRACIN OINT 0.9 GM PKT TOP ONE (19:15)
--- NOTE | 2017-07-09 19:34 | CATHPROC ---
Patient Name: MARBELLA KLEIN Study #: [id number] Initial MD: Lefty Whitt Date of : 1950 Study Date: 07/09/2017 Cardiac Catheterization Report 07/09/2017 7:34:12 PM Financial #: [id number] 1 of 10 Patient Name: MARBELLA KLEIN Study #: [id number] Initial MD: Lefty Whitt Date of : 1950 Study Date: 07/09/2017 Entire Case Report Patient Information Patient Name MARBELLA KLEIN Date of 1950 Age 66 years Financial # [id number] Gender M AlternateID Lab Number 2 Room Number DC04 Height (in) 72.0 Height (cm) 182.9 BSA 2.73 Weight (lbs) 357.3 Weight (kg) 162.4 Patient Address/Phone Number Home Address [facility] Home Phone Number [address] [facility] [address] Study Information Study Number Admission Scheduled Start Study Start [id number] Jul 09 2017 1:27PM 07/09/2017 Jul 09 2017 5:03PM [facility] Study Admit Source Facility Department Other [facility] - Costumed Character Physician and Clinical Staff Initial Lefty Nuñez Geographic Information System Analyst Wilmar Molina,RT(R) Other Kerline Jhaveri RN Other Tayler Garcia RN Other Anesthesia, SOFTWARE DEVELOPMENT ADVISOR Recorder Nga Benjamin RN Scrub Angelic Beltre,RT(R) TECH2 Procedures Performed Procedure Location (Site) Vessel Name Ablation Procedure ICE CATHETER INSERT RA Atruim RF Ablation LT. ATRIUM LT. ATRIUM Equipment Time Power Tool Repairer Description Size Mfg Part Number Used/Scraped NEEDLE, TRANSSEPTAL [facility] 98 [id number] 17:18 [facility] Used C1 *[id number] 07/09/2017 7:34:12 PM Financial #: [id number] 2 of 10 Patient Name: MARBELLA KLEIN Study #: [id number] Initial MD: Lefty Whitt Date of : 1950 Study Date: 07/09/2017 [employer]/ EP [id number] 17:18 KIT, TRANSDUCER / AFIB Used PACER *[id number]- CATHETER, TACTICATH ABLAT BUNDLE 17:18 BUND[facility]-[employer] [employer] Used 65 BUNDLE *[id number]- BUNDLE 77734-TYPOOD CATHETER, FR7 OPTIMA SPIRAL 17:18 [facility] [employer] FR7 *[id number]- Used BUNDLE BUNDLE [id number] 17:18 [employer] CATHETER, JSN, QUAD BUNDLE FR 5 *[id number]- Used BUNDLE [id number] 17:18 [employer] [employer] CATHETER, JSN, QUAD BUNDLE FR 5 *[id number]- Used BUNDLE 22080-[id number] SET, COOL POINT TUBING 17:18 [facility] [employer] *[id number]- Used BUNDLE BUNDLE SHEATH, FR8.5 STEERABLE SM 17:18 [facility] [employer] 71CM [id number] Used 71CM BUNDLE [id number] 19:04 CARD[employer]A MEDICAL VASCADE, FR5 CLOSURE SYSTEM FR 5 Used *[id number] 19:09 CARD[employer] MEDICAL VASCADE, FR6 CLOSURE SYSTEM FR 6\\7 Used *[id number] 19:09 CARD[employer]A MEDICAL VASCADE, FR6 CLOSURE SYSTEM FR 6\\7 Used *[id number] 19:09 C[employer]A MEDICAL VASCADE, FR6 CLOSURE SYSTEM FR 6\\7 Used *[id number] COVER, TRANSDUCER CABLE 612-113 17:18 [employer] Used ACUNAV *[id number] 17:18 CORDIS/PACER SHEATH, FR10 TASHI 11CM FR 10 Used *[id number] 17:18 CORDIS/PACER SHEATH, FR9 TASHI 11CM FR 9 [id number] Used [id number] 17:18 MEDLINE [employer] PACK, CCL CUSTOM * Used *[id number] 17:18 MEDLINE PACER ORTIZ, LIMB * 1410 *7165640 Used [id number] 17:18 [employer] MEDICAL SHEATH, FR4.5 PRELUDE 11CM FR 4.5 Used [id number] 17:46 [employer] MEDICAL SHEATH, FR5.5 PRELUDE 11CM FR 5 [id number] Used [id number] 17:18 NAMIC TUBING, HIGH PRESSURE 48" 48" Used *[id number] [id number] 17:18 NAMIC TUBING, HIGH PRESSURE 48" 48" Used *[id number] [id number] 17:18 [employer] MED[employer] BLANKET,WARM AIR CCL * Used *7477130 [id number] 17:18 [facility] MEDICAL ELECTRODE KIT, ADDIE X SURFACE * Used *8069815 956199 17:18 [facility] [employer] MEDICAL SHEATH, EPS, FR6 FAST CATH FR 6 Used *[id number] 17:18 [facility] [employer] MEDICAL SHEATH, EPS, FR7 FAST CATH FR 7 [id number] Used 059569 17:18 [facility] [employer] MEDICAL SHEATH, EPS, FR8 FAST CATH FR 8 Used *[id number] CATHETER, ACUNAV FR10 ICE [id number] 18:06 ODIN FR 10 Used (DOIN) *[id number] [facility] PAD, ELECTROSURGICAL 17:18 * [id number] *[id number] Used SURGICAL GROUNDING (BLUE) 07/09/2017 7:34:12 PM Financial #: [id number] Patient Name: MARBELLA KLEIN Study #: [id number] Initial MD: Lefty Whitt Date of : 1950 Study Date: 07/09/2017 Insurance Information Insurance Payor Private Health Insurance Third Green Party Third Green Party Number [facility] History: Allergies Allergy Reaction No Known Allergies History: Risk Factors Hypertension Dyslipidemia Previous Heart Failure Yes Yes Yes Chronic Lung Diabetes Disease Labs Hgb (g/dl) Hct (%) RBC (MIL/MM3) WBC (l/cumm) Platelets (thousands) 11.60-17.00 35.00-51.00 4.00-5.90 4.00-11.00 150.00-450.00 11.5 35.6 4 11 224 Glucose (mg/dl) BUN (mg/dl) Creatinine (mg/dl) BUN:Creatinine (1:x) 74.00-106.00 7.00-18.00 0.50-1.30 10.00-20.00 237 27 1.4 19.3 Na (meq/l) K (meq/l) 136.00-145.00 3.50-5.10 136 3.9 INR (PTT:PT) 0.90-1.10 1 Medication Medication Total Dose (Bolus/Oral) Medication Total Dosage/Unit 1% XYLOCAINE 40 mL HEPARIN 35163 units LASIX 40 mg PROTAMINE 40 mg 07/09/2017 7:34:12 PM Financial #: [id number] 4 of 10 Patient Name: MARBELLA KLEIN Study #: [id number] Initial MD: Lefty Whitt Date of : 1950 Study Date: 07/09/2017 Medications (Bolus/Oral) Medication Time Given Dosage/Unit Administered By Reason 1% XYLOCAINE 07/09/2017 5:44:00 PM 20 mL Lefty Whitt 20 mL 1% XYLOCAINE given in lab by Lefty Whitt in Left Groin via Subcutaneous. 1% XYLOCAINE 07/09/2017 5:57:05 PM 20 mL Lefty Whitt 20 mL 1% XYLOCAINE given in lab by Lefty Whitt in Right Groin via Subcutaneous. HEPARIN 07/09/2017 6:10:44 PM 87367 units Anesthesia, SOFTWARE DEVELOPMENT ADVISOR As per physicians ve rbal order 71858 units HEPARIN given in lab by Anesthesia, SOFTWARE DEVELOPMENT ADVISOR via Peripheral IV. Ordered by Lefty Whitt. Nadira son: As per physicians verbal order. HEPARIN 07/09/2017 6:23:56 PM 4000 units Anesthesia, SOFTWARE DEVELOPMENT ADVISOR As per physicians ve rbal order 4000 units HEPARIN given in lab by Anesthesia, SOFTWARE DEVELOPMENT ADVISOR via Peripheral IV. Ordered by Lefty Whitt. Reas on: As per physicians verbal order. HEPARIN 07/09/2017 6:36:09 PM 3000 units Anesthesia, SOFTWARE DEVELOPMENT ADVISOR As per physicians ve rbal order 3000 units HEPARIN given in lab by Anesthesia, SOFTWARE DEVELOPMENT ADVISOR via Peripheral IV. Ordered by Lefty Whitt. Reas on: As per physicians verbal order. PROTAMINE 07/09/2017 7:11:11 PM 40 mg Anesthesia, SOFTWARE DEVELOPMENT ADVISOR As per physicians verb al order 40 mg PROTAMINE given in lab by Anesthesia, SOFTWARE DEVELOPMENT ADVISOR via Peripheral IV. Ordered by Lefty Whitt. Reason: As per physicians verbal order. LASIX 07/09/2017 7:12:17 PM 40 mg Anesthesia, SOFTWARE DEVELOPMENT ADVISOR As per physicians verbal order 40 mg LASIX given in lab by Anesthesia, SOFTWARE DEVELOPMENT ADVISOR via Peripheral IV. Ordered by Lefty Whitt. Reason: As per physicians verbal order. Medication (Drip) Medication Time Given Dosage/Unit Concentration/Unit Diluent (ml) Solution HEPARIN DRIP 07/09/2017 6:24:09 PM 1000 units/hr 25586 units 250 D5W 1000 units/hr HEPARIN DRIP given in lab by Anesthesia, SOFTWARE DEVELOPMENT ADVISOR via Peripheral IV. Pump/Drip Flow = 10 ml /hr [place] [address] units in 250 ml. Ordered by Lefty Whitt. Reason: As per physicians verbal order. ISUPREL 07/09/2017 6:44:39 PM 10 mcg/min 1 mg 250 NaCl .9 10 mcg/min ISUPREL given in lab by Anesthesia, SOFTWARE DEVELOPMENT ADVISOR via Peripheral IV. Pump/Drip Flow = 150 ml/hr usi ng NaCl .9 with a concentration of 1 mg in 250 ml. Ordered by Lefty Whitt. LEVAQUIN 07/09/2017 5:29:21 PM 100 mL/hr 500 100 NaCl .9 100 mL/hr LEVAQUIN given in lab by Anesthesia, SOFTWARE DEVELOPMENT ADVISOR via Peripheral IV. Pump/Drip Flow = 0 ml/hr using NaCl .9 with a concentration of 500 in 100 ml. Ordered by Lefty Whitt. Reason: As per physicians verbal order. 07/09/2017 7:34:12 PM Financial #: [id number] 5 of 10 Patient Name: MARBELLA KLEIN Study #: [id number] Initial MD: Lefty Whitt Date of : 1950 Study Date: 07/09/2017 Initial Case Assessment Cardiovascular HR NIBP 87 150/64 Edema Present Skin color Skin Mild Normal Warm Dry Circulatory - Right Pulses Dorsalis Pedis 1 Scale (0,1,2,3,4,d) Circulatory - Left Pulses Dorsalis Pedis 1 Scale (0,1,2,3,4,d) Circulatory - Lower Extremities Color Lower Right Color Lower Left Normal Normal Neurological State Oriented to time-place- Alert Moves all extremities person Respiration - General Respiration Rate SpO2 (%) O2 (lpm) (B/min) 22 95 2 Comment: O2 @ 2l/min NC continuous at home 07/09/2017 7:34:12 PM Financial #: [id number] 6 of 10 Patient Name: MARBELLA KLEIN Study #: [id number] Initial MD: Lefty Whitt Date of : 1950 Study Date: 07/09/2017 Final Case Assessment Cardiovascular HR Rhythm NIBP Chest Pain 92 sr 187/81 0 Edema Present Skin color Skin Mild Normal Warm Dry Circulatory - Right Pulses Dorsalis Pedis 1 Scale (0,1,2,3,4,d) Circulatory - Left Pulses Dorsalis Pedis 1 Scale (0,1,2,3,4,d) Circulatory - Lower Extremities Color Lower Right Color Lower Left Normal Normal Neurological State Lethargic Moves all extremities Respiration - General Respiration Rate SpO2 (%) O2 (lpm) (B/min) 16 93 6 Chronological Log Time Study Chronological Log 16:53:00 Patient arrived via Bed. 16:53:00 Patient Name, D.O.B, / Armband Verified By R.N. 16:53:00 Consent signed by the physician and the patient and verified by the Costumed Character staff. 16:53:10 Verbal Stimulation=2 Physical Stimulation=2 Airway=1 Respiration=2 TOTAL=7. (0=absent, 1=li mited, 2=present) 16:53:11 Anesthesia at bedside. Assumes care of patient. 16:54:00 History and physical on the chart or being dictated. 16:54:33 Pre-op and post- op instructions given; patient acknowledges understanding of instructions. 17:04:01 Patient has been NPO for More than 6Hrs. 17:04:03 Skin Breakdown- minor scabbed scrapes on shins 07/09/2017 7:34:12 PM Financial #: [id number] Patient Name: MARBELLA KLEIN Study #: [id number] Initial MD: Lefty Whitt Date of : 1950 Study Date: 07/09/2017 17:04:22 Patient Warmer Placed on the Table. 17:04:23 Disposable Defibrillator Pads Placed On Patient. 17:04:24 Adriana Prominences Protected 17:04:28 A # 20 IV was noted in the Forearm (right). Grade = 0 0.9%NaCl @ KVO 17:04:55 A # 20 IV was noted in the Antecubital (left). Grade = 0 0.9% NaCl @ KVO 17:08:28 Table restraints applied according to hospital policy Assessment: Initial Case, HR=87 BPM, RCUC=278/64 mmhg, Edema=Mild, Color=Normal, Skin = Warm, D ry Right Pulses: Toby Ped=1 Left Pulses: Toby Ped=1 17:15:11 Lower Right Extremities: Color=Normal Lower Left Extremities: Color=Normal Neurological: State=Alert, Ox3, GALARZA Respiration: Resp=22 B/min, SpO2=95 %, O2=2 lpm, Comment=O2 @ 2l/min NC continuous at home Anesthesiologist at bedside for intubation. A #14fr aldana catheter inserted aseptically and jacquie rosario to bedside drainage 17:18:20 with clear yellow urine returns. 17:19:27 BGM= 164 17:25:56 Bilateral groins prepped with 2% chlorhexidine. 17:28:12 A sterile drape was applied after a 3 minute prep drying time 100 mL/hr LEVAQUIN given in lab by Anesthesia, SOFTWARE DEVELOPMENT ADVISOR via Peripheral IV. Pump/Drip Flow = 0 ml/hr using NaCl .9 with 17:29:21 a concentration of 500 in 100 ml. Ordered by Lefty Whitt. Reason: As per physicians verbal or errol. Time Out. Correct patient, procedure, procedure equipment, site and side verified with physicia n present. Time 17:39:00 concurred by MD, individual staff and SOFTWARE DEVELOPMENT ADVISOR. Time Out #2 - Consents verified, patient in correct position, all results are labled and displa yed, safety precautions 17:39:50 taken, antibiotics administered. Time out concurred by MD, individual staff and SOFTWARE DEVELOPMENT ADVISOR in procedu re 17:40:57 Case Start 17:41:00 Aramis in progress. 17:42:05 Aramis complete. 17:44:00 20 mL 1% XYLOCAINE given in lab by Lefty Whitt in Left Groin via Subcutaneous. Vascular access was obtained in the Fem Vein (left). Unable to advance wire or sheath. abo rted access attempts. 17:44:34 DB holding pressure to site. 17:57:05 20 mL 1% XYLOCAINE given in lab by Lefty Whitt in Right Groin via Subcutaneous. 17:58:14 Vascular access was obtained in the Fem Vein (right). 17:58:16 Vascular access was obtained in the Fem Vein (right). 17:58:59 Vascular access was obtained in the Fem Vein (right). 18:01:13 A SHEATH, EPS, FR8 FAST CATH FR 8 was advanced into the Fem Vein (right) using the Modified Seldinger technique. 18:02:37 Vascular access was obtained in the Fem Art (right). 18:04:35 A SHEATH, FR5.5 PRELUDE 11CM FR 5 was advanced into the Fem Art (right) using the Modified Seldinger technique. 18:04:48 A SHEATH, EPS, FR7 FAST CATH FR 7 was advanced into the Fem Vein (right) using the Modified Seldinger technique. 18:04:57 A SHEATH, FR10 TASHI 11CM FR 10 was advanced into the Fem Vein (right) using the Modified Seldinger technique. A CATHETER, JSN, QUAD BUNDLE FR 5 was advanced vis Fem Vein (right) and placed in the CS. Place ment was 18:05:50 visually confirmed under fluoroscopy. A CATHETER, JSN, QUAD BUNDLE FR 5 was advanced vis Fem Vein (right) and placed in the HIS. Plac ement was 18:06:01 visually confirmed under fluoroscopy. 18:06:12 CATHETER, ACUNAV FR10 ICE ([employer]) FR 10 Was Postioned. 07/09/2017 7:34:12 PM Financial #: [id number] Patient Name: MARBELLA KLEIN Study #: [id number] Initial MD: Lefty Whitt Date of : 1950 Study Date: 07/09/2017 18:06:24 Begining temp 37.1. A SHEATH, FR8.5 STEERABLE SM 71CM BUNDLE 71CM was exchanged in the Fem Vein (right). This was n ecessary in 18:10:04 order for catheter support. 18:10:18 [place] [address] units HEPARIN given in lab by Anesthesia, SOFTWARE DEVELOPMENT ADVISOR via Peripheral IV. Ordered by Veronica Whitt Reason: As per 18:10:44 physicians verbal order. 18:10:54 A eps was advanced to the right atrium and passed through the septal wall to the left atriu m. 18:10:59 [place] out. A CATHETER, FR7 OPTIMA SPIRAL BUNDLE FR7 was advanced vis Fem Vein (right) and placed in the LA . Placement 18:11:26 was visually confirmed under fluoroscopy. Mapping in progress. 18:17:33 Activated Clotting Time Drawn 18:22:20 ACT (Normal Range 90-180) = 256 4000 units HEPARIN given in lab by Anesthesia, SOFTWARE DEVELOPMENT ADVISOR via Peripheral IV. Ordered by Lefty Whitt . Reason: As per 18:23:56 physicians verbal order. 1000 units/hr HEPARIN DRIP given in lab by Anesthesia, SOFTWARE DEVELOPMENT ADVISOR via Peripheral IV. Pump/Drip Flow = 10 ml/hr using 18:24:09 [place] [address] units in 250 ml. Ordered by Lefty Whitt. Reason: As per phoebe galo verbal order. 18:24:36 Mapping complete. Catheter was removed A CATHETER, TACTICATH ABLAT 65 BUNDLE was advanced vis Fem Vein (right) and placed in the LA. P lacement was 18:24:43 visually confirmed under fluoroscopy. 18:24:53 RF Ablation of the LT. ATRIUM with a CATHETER, TACTICATH ABLAT 65 BUNDLE. 18:28:58 Activated Clotting Time Drawn 18:35:13 ACT (Normal Range 90-180) = 300 3000 units HEPARIN given in lab by Anesthesia, SOFTWARE DEVELOPMENT ADVISOR via Peripheral IV. Ordered by Lefty Whitt . Reason: As per 18:36:09 physicians verbal order. 18:43:51 Activated Clotting Time Drawn 10 mcg/min ISUPREL given in lab by Anesthesia, SOFTWARE DEVELOPMENT ADVISOR via Peripheral IV. Pump/Drip Flow = 150 ml/ hr using NaCl .9 18:44:39 with a concentration of 1 mg in 250 ml. Ordered by Lefty Whitt. 18:50:33 ACT (Normal Range 90-180) = 309 18:54:11 Isuprel off. 18:56:37 PACU called. Spoke to Jennifer 18:56:42 Bedside Report will be given. 18:57:25 All catheter(s) removed without difficulty A SHEATH, FR9 TASHI 11CM FR 9 was exchanged in the Fem Vein (right). This was necessary in ord er to minimize 19:00:22 site leakage. 19:03:51 VASCADE, FR5 CLOSURE SYSTEM FR 5 placement in the Fem Art (right) 19:07:38 VASCADE, FR6 CLOSURE SYSTEM FR 6\\7 placement in the Fem Vein (right) 19:09:19 VASCADE, FR6 CLOSURE SYSTEM FR 6\\7 placement in the Fem Vein (right) 19:09:51 VASCADE, FR6 CLOSURE SYSTEM FR 6\\7 placement in the Fem Vein (right) 40 mg PROTAMINE given in lab by Anesthesia, SOFTWARE DEVELOPMENT ADVISOR via Peripheral IV. Ordered by Lefty Whitt. R chio: As per 19:11:11 physicians verbal order. 40 mg LASIX given in lab by Anesthesia, SOFTWARE DEVELOPMENT ADVISOR via Peripheral IV. Ordered by Lefty Whitt. Reaso n: As per physicians 19:12:17 verbal order. 19:24:41 Activated Clotting Time Drawn 19:26:16 Ablation procedure performed: AFIB. 19:26:22 EP Procedure was performed. 07/09/2017 7:34:12 PM Financial #: [id number] Patient Name: MARBELLA KLEIN Study #: [id number] Initial MD: Lefty Whitt Date of : 1950 Study Date: 07/09/2017 19:32:08 ACT (Normal Range 90-180) = 163 19:32:14 Sterile dressings applied to sites after pressure held. Groins wnl. 19:32:36 Case End 19:32:37 No case complications noted. 19:32:38 Cine recording checked. 19:32:42 Defibrillator and ground pads removed. Skin intact. Assessment: Final Case, HR=92 BPM, Rhythm=sr, MCMU=267/81 mmhg, Chest Pain=0, Edema=Mild, [place] r=Normal, Skin = Warm, Dry Right Pulses: Toby Ped=1 Left Pulses: Toby Ped=1 19:33:06 Lower Right Extremities: Color=Normal Lower Left Extremities: Color=Normal Neurological: State=Lethargic, GALARZA Respiration: Resp=16 B/min, SpO2=93 %, O2=6 lpm 19:35:44 Patient moved to stretcher End Study - Contrast Media Used In Study Contrast Total Opened (mL) Total Used (mL) Total Wasted (mL) Unspecified 0 0 0 End Study - Maximum Contrast Load Max Contrast Load (mL) 580.0 End Study - Radiation Exposure Fluoro Time (minutes) 3.7 End Study - Patient Disposition Complications Transferred To Interventional Outcome No Telemetry Bed successful 07/09/2017 7:34:12 PM Financial #: [id number]
[2017-07-09] MEDS ORDERED: DO NOT ADM ANY ANTICOAGULANT DRUGS PRN (19:51)
[2017-07-09] MEDS ORDERED: INSULIN ASPART SUPPLEMENTAL SCALE ONE (20:00)
[2017-07-09 20:50] VITALS: BP 133/74; PULSE 88; RESP 16; O2SAT 93
[2017-07-09 20:55] VITALS: PULSE 87
[2017-07-09 21:00] VITALS: PULSE 86
[2017-07-09] MEDS ORDERED: APIXABAN 5 MG TABLET PO SCH (21:00)
[2017-07-09] MEDS ORDERED: GLUCAGON 1 MG/ML VIAL OTHER PRN (21:00)
[2017-07-09] MEDS: HIGH DOSE INSULIN NOVOLOG SUPPLEMENTAL SCALE SQ SCH (21:00)
[2017-07-09] MEDS ORDERED: DEXTROSE 50% IN WATER 50 ML VIAL(D50) IV PUSH PRN (21:00)
[2017-07-09] MEDS: oxyCODONE/ACETAMINOPHEN 5 MG/325 MG TAB PO PRN (21:11)
[2017-07-09 22:00] VITALS: PULSE 86
[2017-07-09] MEDS: clonazePAM 1 MG TAB PO SCH (22:10)
[2017-07-09] MEDS: FUROSEMIDE 40 MG TAB PO SCH (22:10)
[2017-07-09 23:00] VITALS: PULSE 84
[2017-07-10] VITALS (12 sets, daily range): BP systolic 142–159; BP diastolic 77–87; PULSE 82–93; RESP 16; TEMP 98.3; O2SAT 94
[2017-07-10] MEDS: oxyCODONE/ACETAMINOPHEN 5 MG/325 MG TAB PO PRN ×2 (01:23→07:29)
[2017-07-10] MEDS: SODIUM CHLORID 0.9% 500 ML INJ 500 ML IV SCH (06:29)
[2017-07-10] MEDS: HIGH DOSE INSULIN NOVOLOG SUPPLEMENTAL SCALE SQ SCH ×2 (08:34→12:36)
[2017-07-10] MEDS: INSULIN ASPART 1,000 UNITS/10 ML VIAL SQ SCH ×2 (08:35→12:36)
[2017-07-10] MEDS: clonazePAM 1 MG TAB PO SCH (08:36)
[2017-07-10] MEDS: FUROSEMIDE 40 MG TAB PO SCH (08:36)
[2017-07-10] MEDS: FERROUS SULFATE 325 MG (65 MG ELEMENTAL IRON) TAB PO SCH ×2 (08:36→12:36)
[2017-07-10] MEDS ORDERED: DILTIAZEM-CD 180 MG CAP ER PO SCH (09:00)
[2017-07-10] MEDS ORDERED: INSULIN DETEMIR 100 UNITS/ML VIAL SQ SCH (09:00)
[2017-07-10] MEDS ORDERED: PANTOPRAZOLE SOD 20 MG DELAYED RELEASE TAB PO SCH (09:00)
[2017-07-10] MEDS ORDERED: BUMETANIDE 1 MG TAB PO SCH (09:00)
[2017-07-10] MEDS ORDERED: NON-FORMULARY DRUG (Omeprazole 20 MG) PO SCH (09:00)
[2017-07-10] MEDS ORDERED: AMIODARONE 200 MG TAB PO SCH (09:00)
[2017-07-10] MEDS ORDERED: DULoxetine HCl DR 60 MG CAP PO SCH (09:00)
[2017-07-10] MEDS ORDERED: LOSARTAN 50 MG TAB PO SCH (09:00)
--- NOTE | 2017-07-10 09:08 | PD.CARD ---
Atrial Fibrillation Ablation PROCEDURE DATE: July 09, 2017 PROCEDURES PERFORMED: 1. Electrophysiology study on Isuprel infusion 2. CS cannulation 3. 3-D mapping 4. Transseptal approach 5. Right and left heart catheterization 6. Intracardiac echo 7. Radiofrequency ablation of atrial fibrillation 8. Pulmonary vein isolation 9. Posterior wall ablation 10. Mitral valve isolation 11. Mitral line creation 12. Left atrial tachycardia ablation 13.Left atrial appendage isolation 14. Floor line creation 15. Anterior wall ablation INDICATIONS FOR THE PROCEDURE Mr. Macdonald is a 66-year-old male with atrial fibrillation, very symptomatic referred for electrophysiology study and ablation. The risks, the nature and the benefits of the procedure were clearly stated to him. The risks include pneumothorax, cardiac perforation, stroke, need for open heart surgery and even . The patient understood and agreed to proceed. DESCRIPTION OF THE PROCEDURE IN DETAIL As written informed consent was obtained prior to esophageal echocardiogram, the patient was kept on the table where he was prepped and draped in the usual sterile fashion. Conscious sedation was initiated and maintained throughout the procedure by the anesthesiologist. Once sedation was verified, the right and left inguinal areas were anesthetized with 2% Xylocaine. Using modified Seldinger technique, the left femoral vein was cannulated on three occasions, three guidewires were advanced. Over the wire a 6, 7 and a 10-Canadian Hemaquet were advanced. Then the left femoral artery was cannulated on one occasion, one guidewire was advanced. Over the wire a 4-Canadian Hemaquet was advanced. Then the right femoral vein was cannulated on one occasion, one guidewire was advanced. Over the wire a 8-Canadian Hemaquet was advanced. Then under fluoroscopic guidance through the 6 and 7-Canadian Hemaquet, two 5-Canadian Sheldon curved quadripolar electrophysiology catheters were advanced and placed around the His as well as coronary sinus. Basic interval was measured. The patient was in atrial fibrillation. Through the 10-Canadian Hemaquet, a Cordis Elliott AcuNav intracardiac echo catheter was advanced and placed at the right atrium. Multiple view was obtained. There was minimal pericardial effusion, pulmonary vein was seen, atrial septal was visualized. There was moderate to severe left atrial enlargement. Then the 8-Canadian Hemaquet in the right femoral vein was exchanged for Agilis transseptal sheath that was placed all the way to the superior vena cava. Through the sheath a Chris needle was advanced, then the sheath, the dilator and the needle were progressed until foci engaged. Once engaged, the needle was advanced. RF was delivered for 2 seconds. I was able to cross into the left atrium. Once the needle crossed, the dilator was advanced. Once the dilator crossed, the sheath was advanced. Once the sheath crossed, the dilator and the needle were removed. At this point I did flood the system and fluid movement was seen in the left atrium the indicates the sheath is in good position. The patient already received 12,000 units of heparin. The goal is to keep an ACT around 350 during ablation. Then through the sheath a St. Ramin 20 pulse circumferential catheter was advanced. Using [email or web address] endocardial solution mapping system, a two-dimensional configuration of the left atrium was obtained. Points were taken at the left superior and inferior veins, right superior and inferior veins, mitral valve, and appendages. Then through the sheath a St. Ramin TactiCath 65cm 3.5mm irrigated tipped mapping and radiofrequency ablation catheter was advanced. Esophageal probe was placed temperature monitoring during ablation. When it increased to 0.5 degrees Celsius above baseline, I moved to a different area of the atrium. First I did isolate the left superior and inferior vein. Patient was at this point in atrial tachycardia. Posterior was ablated. Then a roof line was created, a floor line was created, a mitral line was isolated, then the mitral valve was isolated. Tachy was more organized. While ablating at the anterior floor, patient converted back into sinus rhythm. Then back into atrial tach. Converted later into sinus rhythm while ablating at the right superior vein. I did create a line from the floor to the roof area, passing by the left atrial appendage.Patient was back into atrial tach. Left atrial appendage was isolated. Patient converted into sinus rhythm. At that point I did advance the circumferential catheter again into the vein. There was no signal into the vein , pacing from the vein showed no conduction to the atrium. Isuprel infusion was initiated at 20 mcg for over 10 minutes. No tachyarrhythmia was induced, post Isuprel no tachyarrhythmia was induced. At that point the procedure was complete. All catheters were removed, atrial septal sheath was exchanged for 9- Canadian Hemaquet, intracardiac echo showed no pericardial effusion. There is still good flow in the pulmonary vein. The patient is going to be transferred to the recovery room. No incident report. The patient tolerated the procedure. Blood loss was minimal. FINDINGS 1. Electrocardiogram: At baseline the patient was in atrial fibrillation, post procedure the patient was in sinus rhythm. 2. Basic interval: Base cycle length was around 510. Post ablation she was around 840 milliseconds. AH at 124 and HV at 48 milliseconds. 3. Tachyarrhythmia: Atrial fibrillation was mapped and ablated. Atrial tachycardia was ablated. The ablation was successful. CONCLUSION Successful electrophysiology study, mapping, radiofrequency ablation of atrial fibrillation, left atrial tachycardia, pulmonary vein isolation, posterior ablation, mitral valve isolation, mitral line creation, roof line creation, floor line creation, left atrial tachycardia, and left atrial appendage isolation. COMMENTS AND RECOMMENDATIONS The patient is going to be transferred to the telemetry unit. Will be observed and when stable can be discharged home. Lefty Whitt MD July 10, 2017 09:08
--- NOTE | 2017-07-10 09:13 | HHI.PR ---
Subjective Remarks Feeling better Objective Vital Signs Date Time Temp Pulse Resp B/P (MAP) Pulse Ox O2 Delivery O2 Flow Rate FiO2 07/10/17 08:10 98.3 88 16 159/77 (104) 94 07/10/17 07:00 93 07/10/17 04:47 86 16 142/79 (100) 94 07/10/17 03:16 18 07/10/17 00:00 86 07/10/17 00:00 88 07/09/17 23:00 84 07/09/17 22:00 86 07/09/17 21:00 86 07/09/17 20:55 87 07/09/17 20:50 88 16 133/74 (93) 93 07/09/17 20:30 98.1 86 16 97 Nasal Cannula 4 07/09/17 20:15 87 15 130/58 (82) 97 Nasal Cannula 4 07/09/17 20:00 85 16 132/61 (84) 100 Nasal Cannula 4 07/09/17 19:45 98.0 85 16 127/60 (82) 100 Simple Mask 10 07/09/17 14:01 97.8 102 20 162/88 (112) 95 I/O 07/09/17 07/09/17 07/09/17 07/10/17 07/10/17 07/10/17 07:00 15:00 23:00 07:00 15:00 23:00 Intake Total 1000 ml 480 ml Output Total 450 ml 400 ml Balance 550 ml 80 ml Intake Oral 480 ml Other 1000 ml Output Urine Total 400 ml Estimated Blood Loss 50 ml Other 400 ml Result Diagram: 07/09/17 1355 07/09/17 1355 Imaging Alert, fully oriented Lungs: ventilated Heart: S1, S2 regular, no gallop Current Medications Medications (Trade) Dose Ordered Sig/Vania Route Start Time Stop Time Status Last Admin Sodium Chloride 500 ml @ 30 mls/hr [id number] IV 07/09/17 14:15 (Ativan) 1 mg TRACK TEMPLATE MAKER SL 07/09/17 14:15 07/12/17 14:14 Lactated Ringer's 1,000 ml @ 30 mls/hr Q24H PRN IV 07/09/17 14:30 07/12/17 14:29 Sodium Chloride 500 ml @ 30 mls/hr [id number] PRN IV 07/09/17 14:30 07/12/17 14:29 (Lopressor) 25 mg TRACK TEMPLATE MAKER PRN PO 07/09/17 14:30 07/12/17 14:29 (Betadine 5% Antisepsis Kit) 1 applic TRACK TEMPLATE MAKER PRN EACH NARE 07/09/17 14:30 07/12/17 14:29 (Chlorhexidine 2% Cloth) 3 pack TRACK TEMPLATE MAKER PRN TOPICAL 07/09/17 14:30 07/12/17 14:29 (Percocet 5-325 Mg) 1 tab Q4H PRN PO 07/09/17 19:15 (Percocet 5-325 Mg) 2 tab Q4H PRN PO 07/09/17 19:15 07/10/17 07:29 (Ativan Inj) 0.5 mg UNSCH PRN IV PUSH 07/09/17 19:15 07/10/17 19:14 (Atropine Inj) 0.5 mg UNSCH PRN IV PUSH 07/09/17 19:15 Sodium Chloride 250 ml @ 500 mls/hr ONCE PRN IV 07/09/17 19:15 07/10/17 19:14 (Zofran Inj) 4 mg Q4H PRN IV PUSH 07/09/17 19:15 (Xylocaine 1% Inj (50 ml)) 10 ml UNSCH PRN INFIL 07/09/17 19:15 07/10/17 19:14 (Cordarone) 200 mg DAILY PO 07/10/17 09:00 07/09/17 21:03 (Eliquis) 5 mg BID PO 07/09/17 21:00 07/10/17 08:36 (Bumetanide) 1 mg DAILY PO 07/10/17 09:00 07/10/17 08:37 (KlonoPIN) 1 mg BID PO 07/09/17 21:00 07/09/17 22:10 (Cardizem Cd) 360 mg DAILY PO 07/10/17 09:00 07/10/17 08:37 (Cymbalta Dr) 60 mg DAILY PO 07/10/17 09:00 07/10/17 08:35 (Ferrous Sulfate) 325 mg TIDPC PO 07/10/17 09:30 07/10/17 08:36 (Lasix) 40 mg BID PO 07/09/17 21:00 07/10/17 08:36 (NovoLOG INJ) 20 units TID SQ 07/10/17 09:00 07/10/17 08:35 (Levemir Inj) 80 units DAILY SQ 07/10/17 09:00 07/10/17 08:34 (Cozaar) 100 mg DAILY PO 07/10/17 09:00 07/10/17 08:37 (Protonix) 20 mg DAILY PO 07/10/17 09:00 07/10/17 08:35 ([facility] ALL NURSING DEPARTME... UNSCH PRN .XX 07/09/17 19:51 07/10/17 19:50 (D50w (Vial) Inj) 50 ml UNSCH PRN IV PUSH 07/09/17 21:00 (Glucagon Inj) 1 mg UNSCH PRN OTHER 07/09/17 21:00 (NovoLOG SUPPLEMENTAL SCALE) 1 ACHS SLIDING SCALE SQ 07/09/17 21:00 07/10/17 08:34 Abdomen: soft, no mass, obese Ext: no edema Assessment and Plan Problem List: (1) Atrial fibrillation ICD Codes: I48.91 - Unspecified atrial fibrillation Plan: SP ablation. In sinus rhythm feeling better Will be DH Follow up as previously scheduled (2) HTN (hypertension) ICD Codes: I10 - Essential (primary) hypertension Plan: SBP 157 Meds just administered Lefty Whitt MD July 10, 2017 09:13
[2017-07-10 09:34] LABS: INTERNATIONAL NORMALIZED RATIO 1.1 RATIO; PROTHROMBIN TIME - PATIENT 10.8 SEC (9.8-11.6)
--- NOTE | 2017-07-10 14:25 | EKG ---
Date Performed: 07/10/2017 Time Performed: 01:54:00 PTAGE: 66 years EKG: Sinus rhythm with 1st degree A-V block Rightward axis Right bundle branch block Abnormal ECG Since the PREVIOUS TRACING , no significant change noted PREVIOUS TRACIN07/09/2017 20.06 DOCTOR: Genesis Bermeo Interpretating Date/Time 07/10/2017 14:20:06
--- NOTE | 2017-07-10 15:20 | EKG ---
Date Performed: 07/09/2017 Time Performed: 20:06:59 PTAGE: 66 years EKG: Sinus rhythm WITH FIRST DEGREE AV BLOCK BORDERLINE RIGHT AXIS DEVIATION POSSIBLE RIGHT VENTRICULAR CONDUCTION DEL AY ABNORMAL ECG PREVIOUS TRACING : 05/07/2017 06.15 Since the prior tracing, the patient is now in a normal sin us rhythm. There has been an increase in the QT interval as well, but otherwise no significant serial changes. DOCTOR: Genesis Bermeo Interpretating Date/Time 07/10/2017 15:18:53
--- NOTE | 2017-07-10 15:20 | EKG ---
Date Performed: 07/09/2017 Time Performed: 14:08:42 PTAGE: 66 years EKG: Possible atrial flutter with rapid ventricular response. Septal T wave changes are nonspeci fic Abnormal ECG PREVIOUS TRACING : 05/07/2017 06.15 Since the prior tracing, the patient has developed a regula r supraventricular rhythm that is possiby atrial flutter; although it could be Sinus rhythm with first degree AV block. Regardless, the potential rhythm change is a new change, but the electro cardiogram is otherwise unchanged from the prior study. DOCTOR: Genesis Bermeo Interpretating Date/Time 07/10/2017 15:18:09
== END 2017-07-10 14:30 | disposition home or self-care (01) ==
LOC: HDOC 13:27 → HDIC 13:28 → HCIS 21:02 → HDOC 07-10 14:30
PROVIDERS: ATTEND Internal Medicine Interventional Cardiology
DX: I48.2 Chronic atrial fibrillation (principal); I13.11 Hypertensive heart and chronic kidney disease without heart failure, with stage 5 chronic kidney disease, or end stage renal disease; E10.22 Type 1 diabetes mellitus with diabetic chronic kidney disease; I50.9 Heart failure, unspecified; N18.3 Chronic kidney disease, stage 3 (moderate); R06.01 Orthopnea; D64.9 Anemia, unspecified; Z99.81 Dependence on supplemental oxygen
CPT/HCPCS: 00537; 80048; 82948; 85002; 85025; 85610; 85730; 86850; 86900; 86901; 93005; 93312; 93320; 93325; 93613; 93623; 93656; 93662; C1730; C1731; C1732; C1759; C1760; C1766; C2630; G0269; J0330; J1100; J1644; J1815; J1940; J1956; J2370; J2405; J2710; J3010; J7040; J7050